=== PATIENT | female | born 1990 | race Caucasian/White ===

== ENCOUNTER 2017-10-28 17:56 | Inpatient (IN) | payer MEDICAID ==
[2017-10-28] MEDS ORDERED: Sodium Chloride 0.9% 2.5 ML Syringe FLUSH PRN ×2 (18:24→18:59)
[2017-10-28] MEDS ORDERED: Sodium Chloride 0.9% 10 ML Syringe FLUSH PRN ×2 (18:24→18:59)
[2017-10-28] MEDS ORDERED: Ondansetron 4 MG/2 ML SDV IVPUSH PRN (18:24)
[2017-10-28] MEDS ORDERED: Promethazine 25 MG/ML SDV IM PRN (18:26)
[2017-10-28] MEDS ORDERED: Dextrose 5%-0.45% NaCl 1,000 ML IV SCH (18:30)
[2017-10-28] MEDS: Lactated Ringers 1,000 ML IV SCH ×3 (18:45→22:47)
--- NOTE | 2017-10-28 18:49 | PCM.LDHP ---
L&D History of Present Illness - General Date of Service: 10/28/17 Admit Problem/Dx: Patient Status Order with Admit Dx/Problem 10/28/17 18:24 Patient Status [ADT] Routine Admission Diagnosis/Problem Admission Diagnosis/Problem -related examination 10/28/17 18:43 27yo EDC 11/09/2017 39 4/7wks comes due to nausea, vomiting, and edema. A +, RI, GBS neg. 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" Respiratory History: Reports: Asthma 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: - Past Surgical History Respiratory Surgical History: Reports: None GI Surgical History: Reports: Cholecystectomy H&P Review of Systems - Review of Systems: Review Of Systems: See Below General: Reports: No Symptoms, Chills, Diaphoresis HEENT: Reports: No Symptoms Pulmonary: Reports: No Symptoms Cardiovascular: Reports: No Symptoms, Edema Gastrointestinal: Reports: No Symptoms, Nausea, Vomiting Genitourinary: Reports: No Symptoms Musculoskeletal: Reports: No Symptoms Skin: Reports: No Symptoms, Diaphoresis Psychiatric: Reports: No Symptoms Neurological: Reports: No Symptoms Hematologic/Lymphatic: Reports: No Symptoms Immunologic: Reports: No Symptoms L&D Exam - Exam Exam: See Below - Vital Signs Weight: 76.204 kg - OB Specific Movement: Active Heart Tones: Present Heart Rate (FHR) Variability: Moderate (6-25 bmp) Presentation: Vertex - Mcdaniel Score Mcdaniel Score Cervix Position: Midposition Mcdaniel Score Consistency: Soft Mcdaniel Score Effacement: 51-70% Mcdaniel Score Dilation: 3-4 cm Mcdaniel Score 's Station: -2 Mcdaniel Score Total: 8 - Exam General: Alert, Oriented, Cooperative, Mild Distress HEENT: Hearing Intact Lungs: Clear to Auscultation, Normal Respiratory Effort Cardiovascular: Regular Rate, Regular Rhythm, Normal S1, Normal S2 GI/Abdominal Exam: Soft, Non-Tender Rectal Exam: Deferred Genitourinary: Normal external exam, Cervical dilitation Back Exam: Normal Inspection Extremities: Normal Inspection, Normal Range of Motion, Non-Tender, No Pedal Edema, Normal Capillary Refill Skin: Warm, Dry, Intact Neurological: Cranial Nerves Intact, Reflexes Equal Bilateral, Strength Equal Bilateral, Normal Speech, Normal Tone Psychiatric: Alert, Normal Affect, Normal Mood - Problem List (1) Supervision of normal IUP (intrauterine ) in multiavida SNOMED Code(s): 574773875, 706717063, 940933492 ICD Code: Z34.80 - ENCOUNTER FOR SUPRVSN OF NORMAL , UNSP TRIMESTER Status: Acute Priority: High Current Visit: Yes Qualifiers: Trimester: third trimester Qualified Code(s): Z34.83 - Encounter for supervision of other normal , third trimester (2) Edema during SNOMED Code(s): 229916739, 254746105 ICD Code: O12.00 - GESTATIONAL EDEMA, UNSPECIFIED TRIMESTER Status: Acute Priority: High Current Visit: Yes Qualifiers: Trimester: third trimester Qualified Code(s): O12.03 - Gestational edema, third trimester (3) Nausea and vomiting of , antepartum SNOMED Code(s): 83590688 ICD Code: O21.9 - VOMITING OF , UNSPECIFIED Status: Acute Priority: High Current Visit: Yes Problem List Initiated/Reviewed/Updated: Yes Orders Last 24hrs: Active Orders 24 hr Category Date Time Status Patient Status [ADT] Routine ADT 10/28/17 18:24 Active Non Stress Test [RC] PER UNIT ROUTINE Care 10/28/17 18:24 Active Up ad Lona [RC] ASDIRECTED Care 10/28/17 18:24 Active Vaginal Exam [RC] Click to Edit Care 10/28/17 18:24 Active Vital Signs [RC] PER UNIT ROUTINE Care 10/28/17 18:24 Active Dextrose 5%-0.45% NaCl [Dextrose 5%-1/2 NS] 1,000 ml Med 10/28/17 18:30 Active IV ASDIRECTED Lactated Ringers [Ringers, Lactated] 1,000 ml Med 10/28/17 18:30 Active IV .BOLUS Ondansetron [Zofran] Med 10/28/17 18:24 Active 4 mg IVPUSH Q4H PRN Promethazine [Phenergan] Med 10/28/17 18:26 Active 25 mg IM Q4H PRN Sodium Chloride 0.9% [Saline Flush] Med 10/28/17 18:24 Active 10 ml FLUSH ASDIRECTED PRN Sodium Chloride 0.9% [Saline Flush] Med 10/28/17 18:24 Active 2.5 ml FLUSH ASDIRECTED PRN Peripheral IV Insertion Adult [OM.PC] Urgent Oth 10/28/17 18:24 Ordered Resuscitation Status Routine Resus Stat 10/28/17 18:24 Ordered Medication Orders Dextrose/Sodium Chloride (Dextrose 5%-1/2 Ns) 1,000 mls @ 125 mls/hr IV ASDIRECTED JALEESA Lactated Ringer's (Ringers, Lactated) 1,000 mls @ 500 mls/hr IV .BOLUS JALEESA Ondansetron HCl (Zofran) 4 mg IVPUSH Q4H PRN PRN Reason: Nausea/Vomiting Promethazine HCl (Phenergan) 25 mg IM Q4H PRN PRN Reason: Nausea/Vomiting Sodium Chloride (Saline Flush) 10 ml FLUSH ASDIRECTED PRN PRN Reason: Keep Vein Open Sodium Chloride (Saline Flush) 2.5 ml FLUSH ASDIRECTED PRN PRN Reason: Keep Vein Open Assessment/Plan Comment:: IOL A: 27yo EDC 11/09/2017 39 4/7wks comes due to nausea, vomiting, and edema. A+, RI, GBS neg. P: admit, Zofran and phenergan for N&V, IOL with pitocin, epidural prn, anticipate , Dr Diop updated and agrees with POC
[2017-10-28] MEDS ORDERED: Butorphanol 1 MG/ML SDV IVPUSH PRN (18:59)
[2017-10-28] MEDS ORDERED: Nalbuphine 10 MG/1 ML Vial IVPUSH PRN (18:59)
[2017-10-28] MEDS ORDERED: Tranexamic Acid 1,000 MG in Sodium Chloride 0.9% 100 ML IV PRN (18:59)
[2017-10-28] MEDS ORDERED: Misoprostol 200 MCG Tab PO PRN (18:59)
[2017-10-28] MEDS ORDERED: Water For Irrigation,Sterile 1,000 ML Container IRR PRN (18:59)
[2017-10-28] MEDS ORDERED: Terbutaline 1 MG/ML SDV SUBCUT PRN (18:59)
[2017-10-28] MEDS ORDERED: Lidocaine 1% 50 ML MDV INJECT PRN (18:59)
[2017-10-28] MEDS ORDERED: Methylergonovine 0.2 MG/1 ML Amp IM PRN (18:59)
[2017-10-28] MEDS ORDERED: Carboprost Tromethamine 250 MCG/1 ML Amp IM PRN (18:59)
[2017-10-28] MEDS ORDERED: Lactated Ringers 1,000 ML IV SCH (19:00)
[2017-10-28] MEDS ORDERED: Oxytocin/0.9 % Sodium Chloride 30 UNIT/500 ML BAG IV SCH ×2 (19:00)
--- NOTE | 2017-10-28 22:12 | PCM.PREANE ---
Preanesthetic Assessment - Anesthesia/Transfusion/Family Hx Anesthesia History: Prior Anesthesia Without Reaction Family History of Anesthesia Reaction: No Transfusion History: No Prior Transfusion(s) - Review of Systems General: No Symptoms Pulmonary: No Symptoms Cardiovascular: No Symptoms Gastrointestinal: No Symptoms Neurological: No Symptoms Other: Reports: None - Physical Assessment Height: 5 ft 2 in Weight: 76.204 kg ASA Class: 2 Mental Status: Alert & Oriented x3 Airway Class: Mallampati = 2 Dentition: Reports: Normal Dentition Thyro-Mental Finger Breadths: 3 Mouth Opening Finger Breadths: 3 ROM/Head Extension: Full Lungs: Clear to Auscultation, Normal Respiratory Effort Cardiovascular: Regular Rate, Regular Rhythm - Lab Values: Laboratory Last Values WBC 14.67 K/uL (4.0-11.0) H 10/28/17 19:15 RBC 4.13 M/uL (4.30-5.90) L 10/28/17 19:15 Hgb 12.0 g/dL (12.0-16.0) 10/28/17 19:15 Hct 35.8 % (36.0-46.0) L 10/28/17 19:15 MCV 86.7 fL (80.0-98.0) 10/28/17 19:15 MCH 29.1 pg (27.0-32.0) 10/28/17 19:15 MCHC 33.5 g/dL (31.0-37.0) 10/28/17 19:15 RDW Std Deviation 45.7 fl (28.0-62.0) 10/28/17 19:15 RDW Coeff of Dorothy 15 % (11.0-15.0) 10/28/17 19:15 Plt Count 199 K/uL (150-400) 10/28/17 19:15 MPV 12.50 fL (7.40-12.00) H 10/28/17 19:15 Nucleated RBC % 0.0 /100WBC 10/28/17 19:15 Nucleated RBCs # 0 K/uL 10/28/17 19:15 Urine Color YELLOW 10/28/17 18:55 Urine Appearance SLT CLOUDY 10/28/17 18:55 Urine pH 7.0 (5.0-8.0) 10/28/17 18:55 Ur Specific [place] 1.020 (1.001-1.035) 10/28/17 18:55 Urine Protein NEGATIVE mg/dL (NEGATIVE) 10/28/17 18:55 Urine Glucose (UA) NEGATIVE mg/dL (NEGATIVE) 10/28/17 18:55 Urine Ketones >=80 mg/dL (NEGATIVE) 08 18:55 Urine Occult Blood SMALL (NEGATIVE) H 18 18:55 Urine Nitrite NEGATIVE (NEGATIVE) 10/28/17 18:55 Urine Bilirubin NEGATIVE (NEGATIVE) 10/28/17 18:55 Urine Urobilinogen 0.2 EU/dL (<2.0) 08 18:55 Ur Leukocyte Esterase MODERATE (NEGATIVE) 10/28/17 18:55 Urine RBC 1-3 (0-2/HPF) 10/28/17 18:55 Urine WBC 7-9 (0-5/HPF) 10/28/17 18:55 Ur Epithelial Cells MODERATE (NONE-FEW) 10/28/17 18:55 Amorphous Sediment LIGHT (NEGATIVE) 10/28/17 18:55 Urine Bacteria 1+ (NEGATIVE) H 10/28/17 18:55 Urinalysis Comment 10/28/17 18:55 Blood Type A POSITIVE 10/28/17 19:15 Antibody Screen NEGATIVE 10/28/17 19:15 - Allergies Allergies/Adverse Reactions: Allergies Allergy/AdvReac Type Severity Reaction Status Date / Time No Known Allergies Allergy Verified 10/28/17 20:08 - Acknowledgements Anesthesia Type Planned: Epidural Pt an Appropriate Candidate for the Planned Anesthesia: Yes Alternatives and Risks of Anesthesia Discussed w Pt/Guardian: Yes Pt/Guardian Understands and Agrees with Anesthesia Plan: Yes PreAnesthesia Questionnaire - Past Health History Medical/Surgical History: Denies Medical/Surgical History HEENT History: Reports: None 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" Respiratory History: Reports: Asthma Gastrointestinal History: Reports: GERD Genitourinary History: Reports: None 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 LMP (Approximate): Musculoskeletal History: Reports: None Neurological History: Reports: None Psychiatric History: Reports: Anxiety, Depression Endocrine/Metabolic History: Reports: Obesity/BMI 30+ Hematologic History: Reports: None Immunologic History: Reports: None Oncologic (Cancer) History: Reports: None Dermatologic History: Reports: None - Infectious Disease History Infectious Disease History: Reports: None - Past Surgical History Respiratory Surgical History: Reports: None GI Surgical History: Reports: Cholecystectomy - SUBSTANCE USE Smoking Status *Q: Current Every Day Smoker (0.5PPD) Tobacco Use Within Last Twelve Months: Cigarettes Second Hand Smoke Exposure: Yes Recreational Drug Use History: No - HOME MEDS Home Medications: Home Meds Ondansetron HCl [Zofran] 1 PRN 10/28/17 [History] - CURRENT (IN HOUSE) MEDS Current Meds: Current Medications Butorphanol Tartrate (Stadol) 1 mg IVPUSH ASDIRECTED PRN PRN Reason: Pain Carboprost Tromethamine (Hemabate Ds) 250 mcg IM ASDIRECTED PRN PRN Reason: Post Hemorrhage Dextrose/Sodium Chloride (Dextrose 5%-1/2 Ns) 1,000 mls @ 125 mls/hr IV ASDIRECTED JALEESA Lactated Ringer's (Ringers, Lactated) 1,000 mls @ 500 mls/hr IV .BOLUS JALEESA Last Admin: 10/28/17 18:45 Dose: 999 mls/hr Tranexamic Acid 1,000 mg/ (Sodium Chloride) 110 mls @ 660 mls/hr IV ONETIME PRN PRN Reason: Bleeding Oxytocin/Sodium Chloride (Oxytocin 30 Unit/500 Ml-Ns) 30 unit in 500 mls @ 2 mls/hr IV TITRATE JALEESA; Protocol Last Admin: 10/28/17 19:27 Dose: 2 munits/min, 2 mls/hr Lactated Ringer's (Ringers, Lactated) 1,000 mls @ 150 mls/hr IV ASDIRECTED JALEESA Oxytocin/Sodium Chloride (Oxytocin 30 Unit/500 Ml-Ns) 30 unit in 500 mls @ 999 mls/hr IV TITRATE JALEESA Lidocaine HCl (Xylocaine 1%) 50 ml INJECT .ONCE PRN PRN Reason: Laceration repair Methylergonovine Maleate (Methergine) 0.2 mg IM ASDIRECTED PRN PRN Reason: Post Hemorrhage Misoprostol (Cytotec) 200 mcg PO .ONCE PRN PRN Reason: Post Hemorrhage Nalbuphine HCl (Nubain) 10 mg IVPUSH ASDIRECTED PRN PRN Reason: Pain (severe 7-10) Last Admin: 10/28/17 20:49 Dose: 10 mg Ondansetron HCl (Zofran) 4 mg IVPUSH Q4H PRN PRN Reason: Nausea/Vomiting Last Admin: 10/28/17 18:50 Dose: 4 mg Promethazine HCl (Phenergan) 25 mg IM Q4H PRN PRN Reason: Nausea/Vomiting Last Admin: 10/28/17 18:52 Dose: 25 mg Sodium Chloride (Saline Flush) 10 ml FLUSH ASDIRECTED PRN PRN Reason: Keep Vein Open Sodium Chloride (Saline Flush) 2.5 ml FLUSH ASDIRECTED PRN PRN Reason: Keep Vein Open Sodium Chloride (Saline Flush) 10 ml FLUSH ASDIRECTED PRN PRN Reason: Keep Vein Open Sodium Chloride (Saline Flush) 2.5 ml FLUSH ASDIRECTED PRN PRN Reason: Keep Vein Open Sterile Water (Sterile Water For Irrigation) 1,000 ml IRR ASDIRECTED PRN PRN Reason: delivery Terbutaline Sulfate (Brethine) 0.25 mg SUBCUT ASDIRECTED PRN PRN Reason: Tacysystole
[2017-10-29] MEDS ORDERED: oxyCODONE 5 MG Tab PO PRN (01:38)
[2017-10-29] MEDS ORDERED: Ibuprofen 400 MG Tab PO PRN (01:38)
[2017-10-29] MEDS ORDERED: Acetaminophen 500 MG Tab PO PRN ×2 (01:38)
[2017-10-29] MEDS ORDERED: Docusate Sodium 100 MG Cap PO PRN (01:38)
[2017-10-29] MEDS ORDERED: Witch Hazel Medicated Pads 40/Jar TOP PRN (01:38)
[2017-10-29] MEDS ORDERED: Benzocaine/Menthol 20%-0.5% Spray 78 GM Cannister TOP PRN (01:38)
[2017-10-29] MEDS ORDERED: Lanolin 100% Cream 7 GM Tube TOP PRN (01:38)
[2017-10-29] MEDS ORDERED: Bisacodyl 10 MG Supp RECTAL PRN (01:38)
--- NOTE | 2017-10-29 01:46 | PCM.DEL ---
L & D Note - General Info Date of Service: 10/29/17 Mother's Due Date: 11/09/17 - Delivery Note Labor: Induced by Oxytocin Delivery Outcome: Livebirth Delivery Method: Spontaneous Vaginal Delivery-Single Infant Delivery Mode: Spontaneous Presentation: Vertex Nuchal Cord: None Anesthesia Type: Epidural Amniotic Fluid Description: Clear Episiotomy Type: None Laceration: None Placenta: Intact, Spontaneous Cord: 3 Vessels Estimated Blood Loss: 100 Resuscitation Needed: No [place]: Stimulated Score 1 min: 9 Score 5 min: 9 Second Stage Interventions: Reports: Pushing, Pulls Own Legs Back Delivery Comments (Free Text/Narrative):: of viable male over intact perineum, head delivered with good pushing, shoulders and body followed easily. spont cry placed on mothers abd with RN at . Delayed cord clamping. Pitocin to IVF. Cord clamped x2 and cut by Grandmother. cord blood collected. Placenta delivered grossly intact. Inspection noted intact perineum. EBL 100cc, APGARS 9/9, Wt pending bonding. mother and baby left in stable condition for recovery. Induction Criteria - Mcdaniel Score Mcdaniel Score Dilation: 3-4 cm Mcdaniel Score Effacement: 60-70% Mcdaniel Score Infant's Station: -2 Mcdaniel Score Consistency: Soft Mcdaniel Score Cervix Position: Midposition Mcdaniel Score Total: 8 Mcdaniel Score Presenting Part: Reports: Cephalic - Induction Gestational Age >/= 39 wks: No Medical Indication: nausea, vomiting and gross edema Estimated Pelvis: Reports: Adequate Reassuring Monitoring Strip: Yes Absence of Tachy Systole: Yes - General Info Date of Service: 10/29/17 Admission Dx/Problem (Free Text): Patient Status Order with Admit Dx/Problem 10/28/17 18:24 Patient Status [ADT] Routine Admission Diagnosis/Problem Admission Diagnosis/Problem -related examination 10/28/17 18:43 27yo EDC 11/09/2017 39 4/7wks comes due to nausea, vomiting, and edema. A +, RI, GBS neg. Functional Status: Reports: Pain Controlled - Review of Systems General: Reports: No Symptoms HEENT: Reports: No Symptoms Pulmonary: Reports: No Symptoms Cardiovascular: Reports: No Symptoms, Edema Gastrointestinal: Reports: No Symptoms, Nausea Genitourinary: Reports: No Symptoms Musculoskeletal: Reports: No Symptoms Skin: Reports: No Symptoms Neurological: Reports: No Symptoms Psychiatric: Reports: No Symptoms - Patient Data Weight - Most Recent: 76.204 kg Lab Results Last 24 Hours: Laboratory Results - last 24 hr 10/28/17 10/28/17 10/28/17 Range/Units 18:55 19:15 19:15 WBC 14.67 H (4.0-11.0) K/uL RBC 4.13 L (4.30-5.90) M/uL Hgb 12.0 (12.0-16.0) g/dL Hct 35.8 L (36.0-46.0) % MCV 86.7 (80.0-98.0) fL MCH 29.1 (27.0-32.0) pg MCHC 33.5 (31.0-37.0) g/dL RDW Std Deviation 45.7 (28.0-62.0) fl RDW Coeff of Dorothy 15 (11.0-15.0) % Plt Count 199 (150-400) K/uL MPV 12.50 H (7.40-12.00) fL Nucleated RBC % 0.0 /100WBC Nucleated RBCs # 0 K/uL Urine Color YELLOW Urine Appearance SLT CLOUDY Urine pH 7.0 (5.0-8.0) Ur Specific [place] 1.020 (1.001-1.035) Urine Protein NEGATIVE (NEGATIVE) mg/dL Urine Glucose (UA) NEGATIVE (NEGATIVE) mg/dL Urine Ketones >=80 (NEGATIVE) mg/dL Urine Occult Blood SMALL H (NEGATIVE) Urine Nitrite NEGATIVE (NEGATIVE) Urine Bilirubin NEGATIVE (NEGATIVE) Urine Urobilinogen 0.2 (<2.0) EU/dL Ur Leukocyte Esterase MODERATE (NEGATIVE) Urine RBC 1-3 (0-2/HPF) Urine WBC 7-9 (0-5/HPF) Ur Epithelial Cells MODERATE (NONE-FEW) Amorphous Sediment LIGHT (NEGATIVE) Urine Bacteria 1+ H (NEGATIVE) Urinalysis Comment Blood Type A POSITIVE Antibody Screen NEGATIVE Med Orders - Current: Current Medications Acetaminophen (Tylenol Extra Strength) 500 mg PO Q4H PRN PRN Reason: Pain Acetaminophen (Tylenol Extra Strength) 1,000 mg PO Q4H PRN PRN Reason: Pain Benzocaine/Menthol (Dermoplast Pain Relief 20%-0.5% Crescent) 78 gm TOP ASDIRECTED PRN PRN Reason: Perineal Comfort Measure Discontinued Medications Butorphanol Tartrate (Stadol) 1 mg IVPUSH ASDIRECTED PRN PRN Reason: Pain Carboprost Tromethamine (Hemabate Ds) 250 mcg IM ASDIRECTED PRN PRN Reason: Post Hemorrhage Dextrose/Sodium Chloride (Dextrose 5%-1/2 Ns) 1,000 mls @ 125 mls/hr IV ASDIRECTED JALEESA Lactated Ringer's (Ringers, Lactated) 1,000 mls @ 500 mls/hr IV .BOLUS JALEESA Last Admin: 10/28/17 22:47 Dose: 999 mls/hr Tranexamic Acid 1,000 mg/ (Sodium Chloride) 110 mls @ 660 mls/hr IV ONETIME PRN PRN Reason: Bleeding Oxytocin/Sodium Chloride (Oxytocin 30 Unit/500 Ml-Ns) 30 unit in 500 mls @ 2 mls/hr IV TITRATE JALEESA; Protocol Last Admin: 10/28/17 19:27 Dose: 2 munits/min, 2 mls/hr Lactated Ringer's (Ringers, Lactated) 1,000 mls @ 150 mls/hr IV ASDIRECTED JALEESA Oxytocin/Sodium Chloride (Oxytocin 30 Unit/500 Ml-Ns) 30 unit in 500 mls @ 999 mls/hr IV TITRATE JALEESA Fentanyl/Bupivacaine HCl (Psawzlrm-Kjemy-Hm 2 Mcg/Ml-0.125%) Confirm Administered Dose 100 mls @ as directed EP .[facility] Stop: 10/28/17 22:29 Lidocaine HCl (Xylocaine 1%) 50 ml INJECT .ONCE PRN PRN Reason: Laceration repair Methylergonovine Maleate (Methergine) 0.2 mg IM ASDIRECTED PRN PRN Reason: Post Hemorrhage Misoprostol (Cytotec) 200 mcg PO .ONCE PRN PRN Reason: Post Hemorrhage Nalbuphine HCl (Nubain) 10 mg IVPUSH ASDIRECTED PRN PRN Reason: Pain (severe 7-10) Last Admin: 10/28/17 20:49 Dose: 10 mg Ondansetron HCl (Zofran) 4 mg IVPUSH Q4H PRN PRN Reason: Nausea/Vomiting Last Admin: 10/28/17 18:50 Dose: 4 mg Promethazine HCl (Phenergan) 25 mg IM Q4H PRN PRN Reason: Nausea/Vomiting Last Admin: 10/28/17 18:52 Dose: 25 mg Sodium Chloride (Saline Flush) 10 ml FLUSH ASDIRECTED PRN PRN Reason: Keep Vein Open Sodium Chloride (Saline Flush) 2.5 ml FLUSH ASDIRECTED PRN PRN Reason: Keep Vein Open Sodium Chloride (Saline Flush) 10 ml FLUSH ASDIRECTED PRN PRN Reason: Keep Vein Open Sodium Chloride (Saline Flush) 2.5 ml FLUSH ASDIRECTED PRN PRN Reason: Keep Vein Open Sterile Water (Sterile Water For Irrigation) 1,000 ml IRR ASDIRECTED PRN PRN Reason: delivery Terbutaline Sulfate (Brethine) 0.25 mg SUBCUT ASDIRECTED PRN PRN Reason: Tacysystole Last Admin: 10/28/17 22:12 Dose: 0.25 mg - Exam General: Alert, Oriented, Cooperative, No Acute Distress Lungs: Normal Respiratory Effort GI/Abdominal Exam: Soft, Non-Tender (Female) Exam: Normal External Exam, Normal Bimanual Exam, Vaginal Bleeding Back Exam: Normal Inspection, Full Range of Motion Extremities: Normal Inspection, Normal Range of Motion, Non-Tender, No Pedal Edema, Normal Capillary Refill, Pedal Edema Skin: Warm, Dry, Intact Wound/Incisions: Healing Well Neurological: No New Focal Deficit, Normal Speech, Normal Tone, Strength Equal Bilateral Psy/Mental Status: Alert, Normal Affect, Normal Mood - Problem List & Annotations (1) Supervision of normal IUP (intrauterine ) in multigravida SNOMED Code(s): 468152324, 621490300, 837601358 Code(s): Z34.80 - ENCOUNTER FOR SUPRVSN OF NORMAL , UNSP TRIMESTER Status: Acute Priority: High Current Visit: Yes Qualifiers: Trimester: third trimester Qualified Code(s): Z34.83 - Encounter for supervision of other normal , third trimester (2) Edema during SNOMED Code(s): 802837334, 464908328 Code(s): O12.00 - GESTATIONAL EDEMA, UNSPECIFIED TRIMESTER Status: Acute Priority: High Current Visit: Yes Qualifiers: Trimester: third trimester Qualified Code(s): O12.03 - Gestational edema, third trimester (3) Nausea and vomiting of , antepartum SNOMED Code(s): 70732268 Code(s): O21.9 - VOMITING OF , UNSPECIFIED Status: Acute Priority: High Current Visit: Yes (4) (normal spontaneous vaginal delivery) SNOMED Code(s): 38352644 Code(s): O80 - ENCOUNTER FOR FULL-TERM UNCOMPLICATED DELIVERY Status: Acute Priority: High Current Visit: Yes - Problem List Review Problem List Initiated/Reviewed/Updated: Yes - My Orders Last 24 Hours: My Active Orders 10/28/17 18:24 Vital Signs [RC] PER UNIT ROUTINE 10/28/17 18:59 Heart Tones [RC] CONTINUOUS Non Stress Test [RC] PER UNIT ROUTINE Oxygen Therapy [RC] ASDIRECTED Vaginal Exam [RC] PRN Vaginal Exam [RC] PRN Vital Signs [RC] PER UNIT ROUTINE Vital Signs [RC] PER UNIT ROUTINE 10/29/17 01:38 May Shower [RC] ASDIRECTED Up ad Lona [RC] ASDIRECTED Vital Signs [RC] PER UNIT ROUTINE Acetaminophen [Tylenol Extra Strength] 1,000 mg PO Q4H PRN Acetaminophen [Tylenol Extra Strength] 500 mg PO Q4H PRN Benzocaine/Menthol [Dermoplast Pain Relief 20%-0.5% Crescent] 78 gm TOP ASDIRECTED PRN Bisacodyl [Dulcolax] 10 mg RECTAL .ONCE PRN Docusate Sodium [Colace] 100 mg PO BID PRN Ibuprofen [Motrin] 400 mg PO Q4H PRN Ibuprofen [Motrin] 800 mg PO Q6H PRN Lanolin [Lansinoh HPA] See Dose Instructions TOP ASDIRECTED PRN Witch Alexus [Tucks] 1 pad TOP ASDIRECTED PRN oxyCODONE 5 mg PO Q2H PRN Assess Lochia [WOMSER] Per Unit Routine Assess Uterine Involution [WOMSER] Per Unit Routine Peripheral IV Discontinue [OM.PC] Routine Resuscitation Status Routine 10/29/17 01:40 Patient Status [ADT] Routine 10/29/17 Breakfast Regular Diet [DIET] - Plan Plan:: IOL A: 27yo EDC 11/09/2017 39 4/7wks comes due to nausea, vomiting, and edema. A+, RI, GBS neg. P: admit, Zofran and phenergan for N&V, IOL with pitocin, epidural prn, anticipate , Dr Diop updated and agrees with POC Delivery A: of viable male, APGARS 9/9, WT: pending bonding. Intact perineum, EBL 100cc, mother and baby bonding well and stable P: Routine pp plan of care
--- NOTE | 2017-10-29 09:26 | PCM48HPAN ---
Post Anesthesia Note - EVALUATION WITHIN 48HRS OF ANESTHETIC Vital Signs in Normal Range: Yes Patient Participated in Evaluation: Yes Respiratory Function Stable: Yes Airway Patent: Yes Cardiovascular Function Stable: Yes Hydration Status Stable: Yes Pain Control Satisfactory: Yes Nausea and Vomiting Control Satisfactory: Yes Mental Status Recovered: Yes Resp Rate: 15
[2017-10-29] MEDS: Ibuprofen 800 MG Tab PO PRN ×2 (10:47→20:50)
[2017-10-30] MEDS: Ibuprofen 800 MG Tab PO PRN (05:53)
--- NOTE | 2017-10-30 08:05 | PCM.PNPP ---
- General Info Date of Service: 10/30/17 Functional Status: Reports: Pain Controlled - Review of Systems General: Reports: No Symptoms HEENT: Reports: No Symptoms Pulmonary: Reports: No Symptoms Cardiovascular: Reports: No Symptoms Gastrointestinal: Reports: No Symptoms Genitourinary: Reports: No Symptoms Musculoskeletal: Reports: No Symptoms Skin: Reports: No Symptoms Neurological: Reports: No Symptoms Psychiatric: Reports: No Symptoms - General Info Date of Service: 10/30/17 - Patient Data Vital Signs - Most Recent: Last Vital Signs Temp 37.1 C 10/29/17 20:55 Pulse 56 L 10/30/17 04:00 Resp 18 10/30/17 07:19 BP 117/69 10/30/17 04:00 Pulse Ox 97 10/30/17 04:00 Weight - Most Recent: 76.204 kg Med Orders - Current: Current Medications Acetaminophen (Tylenol Extra Strength) 500 mg PO Q4H PRN PRN Reason: Pain Acetaminophen (Tylenol Extra Strength) 1,000 mg PO Q4H PRN PRN Reason: Pain Last Admin: 10/29/17 12:55 Dose: 1,000 mg Benzocaine/Menthol (Dermoplast Pain Relief 20%-0.5% [place]) 78 gm TOP ASDIRECTED PRN PRN Reason: Perineal Comfort Measure Bisacodyl (Dulcolax) 10 mg RECTAL .ONCE PRN PRN Reason: Constipation Docusate Sodium (Colace) 100 mg PO BID PRN PRN Reason: Constipation Last Admin: 10/29/17 20:50 Dose: 100 mg Emollient Ointment (Lansinoh Hpa) 0 gm TOP ASDIRECTED PRN PRN Reason: Sore Nipples Ibuprofen (Motrin) 400 mg PO Q4H PRN PRN Reason: Pain Ibuprofen (Motrin) 800 mg PO Q6H PRN PRN Reason: Pain Last Admin: 10/30/17 05:53 Dose: 800 mg Oxycodone HCl (Oxycodone) 5 mg PO Q2H PRN PRN Reason: Pain Witch Alexus (Tucks) 1 pad TOP ASDIRECTED PRN PRN Reason: comfort care Discontinued Medications Butorphanol Tartrate (Stadol) 1 mg IVPUSH ASDIRECTED PRN PRN Reason: Pain Carboprost Tromethamine (Hemabate Ds) 250 mcg IM ASDIRECTED PRN PRN Reason: Post Hemorrhage Dextrose/Sodium Chloride (Dextrose 5%-1/2 Ns) 1,000 mls @ 125 mls/hr IV ASDIRECTED JALEESA Lactated Ringer's (Ringers, Lactated) 1,000 mls @ 500 mls/hr IV .BOLUS JALEESA Last Admin: 10/28/17 22:47 Dose: 999 mls/hr Tranexamic Acid 1,000 mg/ (Sodium Chloride) 110 mls @ 660 mls/hr IV ONETIME PRN PRN Reason: Bleeding Oxytocin/Sodium Chloride (Oxytocin 30 Unit/500 Ml-Ns) 30 unit in 500 mls @ 2 mls/hr IV TITRATE JALEESA; Protocol Last Admin: 10/28/17 19:27 Dose: 2 munits/min, 2 mls/hr Lactated Ringer's (Ringers, Lactated) 1,000 mls @ 150 mls/hr IV ASDIRECTED JALEESA Oxytocin/Sodium Chloride (Oxytocin 30 Unit/500 Ml-Ns) 30 unit in 500 mls @ 999 mls/hr IV TITRATE JALEESA Fentanyl/Bupivacaine HCl (Kibpwrjg-Wuxzg-Lu 2 Mcg/Ml-0.125%) Confirm Administered Dose 100 mls @ as directed EP .STK-MED ONE Stop: 10/28/17 22:29 Last Admin: 10/29/17 08:13 Dose: Not Given Lidocaine HCl (Xylocaine 1%) 50 ml INJECT .ONCE PRN PRN Reason: Laceration repair Methylergonovine Maleate (Methergine) 0.2 mg IM ASDIRECTED PRN PRN Reason: Post Hemorrhage Misoprostol (Cytotec) 200 mcg PO .ONCE PRN PRN Reason: Post Hemorrhage Nalbuphine HCl (Nubain) 10 mg IVPUSH ASDIRECTED PRN PRN Reason: Pain (severe 7-10) Last Admin: 10/28/17 20:49 Dose: 10 mg Ondansetron HCl (Zofran) 4 mg IVPUSH Q4H PRN PRN Reason: Nausea/Vomiting Last Admin: 10/28/17 18:50 Dose: 4 mg Promethazine HCl (Phenergan) 25 mg IM Q4H PRN PRN Reason: Nausea/Vomiting Last Admin: 10/28/17 18:52 Dose: 25 mg Sodium Chloride (Saline Flush) 10 ml FLUSH ASDIRECTED PRN PRN Reason: Keep Vein Open Sodium Chloride (Saline Flush) 2.5 ml FLUSH ASDIRECTED PRN PRN Reason: Keep Vein Open Sodium Chloride (Saline Flush) 10 ml FLUSH ASDIRECTED PRN PRN Reason: Keep Vein Open Sodium Chloride (Saline Flush) 2.5 ml FLUSH ASDIRECTED PRN PRN Reason: Keep Vein Open Sterile Water (Sterile Water For Irrigation) 1,000 ml IRR ASDIRECTED PRN PRN Reason: delivery Terbutaline Sulfate (Brethine) 0.25 mg SUBCUT ASDIRECTED PRN PRN Reason: Tacysystole Last Admin: 10/28/17 22:12 Dose: 0.25 mg - Infant Interaction Disposition, : in Room with Family Infant Interaction: Holding Infant Infant Feeding: Attempted ; Nursed Fair/Poor Support Person: Mother - Recovery Exam Fundal Tone: Firm Fundal Level: 2 Fingerbreadths Below Umbilicus Fundal Placement: Midline Lochia Amount: Scant Lochia Color: Rubra/Red Perineum Description: Intact, Minimal Bruising/Swelling Episiotomy/Laceration: None Bladder Status: Nonpalpable, Voiding - Exam General: Alert, Oriented HEENT: Pupils Equal Neck: Supple Lungs: Clear to Auscultation, Normal Respiratory Effort Cardiovascular: Regular Rate, Regular Rhythm GI/Abdominal Exam: Normal Bowel Sounds, Soft, Non-Tender, No Organomegaly, No Distention, No Abnormal Bruit, No Mass, Pelvis Stable Extremities: Normal Inspection, Normal Range of Motion, Non-Tender, No Pedal Edema, Normal Capillary Refill Skin: Warm, Dry, Intact Wound/Incisions: Healing Well Neurological: No New Focal Deficit Psy/Mental Status: Alert, Normal Affect, Normal Mood - Problem List Review Problem List Initiated/Reviewed/Updated: Yes - Assessment Assessment:: Status post normal spontaneous vaginal delivery regular for follow-up care doing well we will sent home today - Plan Plan:: IOL A: 27yo EDC 11/09/2017 39 4/7wks comes due to nausea, vomiting, and edema. A+, RI, GBS neg. P: admit, Zofran and phenergan for N&V, IOL with pitocin, epidural prn, anticipate , Dr Diop updated and agrees with POC Delivery A: of viable male, APGARS 9/9, WT: pending bonding. Intact perineum, EBL 100cc, mother and baby bonding well and stable P: Routine pp plan of care
[2017-10-30 10:52] VITALS: BP 105/65
== END 2017-10-30 11:18 | disposition home or self-care (01) | DRG 775 ==
LOC: MW.OBCHECK 17:56 → MW.OB 20:14 → OBSVTOIN 10-29 01:19 → MW.OB 10-29 01:20
PROVIDERS: ADMIT Obstetrics & Gynecology; ATTEND Obstetrics & Gynecology
PROC: 10E0XZZ Delivery of Products of Conception, External Approach (ICD-10-PCS; principal; 2017-10-29)
PROC: 10907ZC Drainage of Amniotic Fluid, Therapeutic from Products of Conception, Via Natural or Artificial Opening (ICD-10-PCS; 2017-10-29)
PROC: 3E0S3GC Introduction of Other Therapeutic Substance into Epidural Space, Percutaneous Approach (ICD-10-PCS; 2017-10-29)
DX: O12.04 Gestational edema, complicating childbirth (principal); Z37.0 Single live birth; Z3A.39 39 weeks gestation of pregnancy; O21.9 Vomiting of pregnancy, unspecified
CPT/HCPCS: 36415; 59025; 59409; 81001; 85027; 86850; 86900; 86901; A9270-GY; J2300; J2405; J2550; J2590; J3105; J7120

== ENCOUNTER 2017-12-19 10:08 | Emergency (ER) | payer MEDICAID ==
[2017-12-19] MEDS ORDERED: Sodium Chloride 0.9% 1,000 ML IV ONE ×3 (10:32→14:37)
[2017-12-19] MEDS ORDERED: Sodium Chloride 0.9% 2.5 ML Syringe FLUSH PRN (10:32)
[2017-12-19] MEDS ORDERED: Morphine 2 MG/ML Syringe IVPUSH ONE (10:32)
[2017-12-19] MEDS ORDERED: Ondansetron 4 MG/2 ML SDV IVPUSH ONE ×2 (10:32→11:18)
[2017-12-19] MEDS ORDERED: Sodium Chloride 0.9% 10 ML Syringe FLUSH PRN (10:32)
--- NOTE | 2017-12-19 10:36 | EDM.PDOC ---
ED HPI GENERAL MEDICAL PROBLEM - General Chief Complaint: Abdominal Pain Stated Complaint: ABDOMINAL PAIN Time Seen by Provider: 12/19/17 10:10 Source of Information: Reports: Patient History Limitations: Reports: No Limitations - History of Present Illness INITIAL COMMENTS - FREE TEXT/NARRATIVE: History of present illness: []Some bad chicken approximately 6 PM last night and started having vomiting and abdominal pain around 6 AM. Review of systems: As per history of present illness and below otherwise all systems reviewed and negative. Past medical history: As per history of present illness and as reviewed below otherwise noncontributory. Surgical history: As per history of present illness and as reviewed below otherwise noncontributory. Social history: No reported history of drug or alcohol abuse. Family history: As per history of present illness and as reviewed below otherwise noncontributory. Physical exam: General: Well developed, well nourished in moderate painful distress HEENT: Atraumatic, normocephalic, pupils reactive, negative for conjunctival pallor or scleral icterus, mucous membranes moist, throat clear, neck supple, nontender, trachea midline. Lungs: Clear to auscultation, breath sounds equal bilaterally, chest nontender. Heart: S1S2, regular, negative for clicks, rubs, or JVD. Abdomen: Soft, nondistended, diffuse tenderness with voluntary guarding no rebound. Negative for masses or hepatosplenomegaly. Negative for costovertebral tenderness. Pelvis: Stable nontender. Genitourinary: Deferred. Rectal: Deferred. Extremities: Atraumatic, negative for cords or calf pain. Neurovascular unremarkable. Neuro: Awake, alert, oriented. Cranial nerves II through XII unremarkable. Cerebellum unremarkable. Motor and sensory unremarkable throughout. Exam nonfocal. Skin:warm and dry Diagnostics: CBC, chemistry, lipase, urine, drug screen, , CT abdomen pelvis negative except for nonspecific periportal edema Therapeutics: IV fluid 3 L morphine, Zofran ED Course: Markedly improved, Dr. Shearer was consulted giving the periportal edema on CT he recommended keeping the patient on a PPI and follow-up in one week. Impression: use of multiple Illicit drugs , vomiting, dehydration Prescriptions: PPI, Zofran Plan: Follow-up with primary care as needed. Definitive disposition and diagnosis as appropriate pending reevaluation and review of above. Abdominal Pain Score (Numeric/FACES): 9 - Related Data Allergies Allergy/AdvReac Type Severity Reaction Status Date / Time No Known Allergies Allergy Verified 12/19/17 10:53 Home Meds: Home Meds . 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" Respiratory History: Reports: Asthma Gastrointestinal History: Reports: GERD Genitourinary History: Reports: None CASH CONTROLLER History: Reports: Musculoskeletal History: Reports: None Neurological History: Reports: None Psychiatric History: Reports: Anxiety, Depression Endocrine/Metabolic History: Reports: Obesity/BMI 30+ Hematologic History: Reports: None Immunologic History: Reports: None Oncologic (Cancer) History: Reports: None Dermatologic History: Reports: None - Infectious Disease History Infectious Disease History: Reports: None - Past Surgical History Respiratory Surgical History: Reports: None GI Surgical History: Reports: Cholecystectomy Social & Family History - Family History Family Medical History: Noncontributory - Caffeine Use Caffeine Use: Reports: Soda ED ROS GENERAL - Review of Systems Review Of Systems: ROS reveals no pertinent complaints other than HPI. ED EXAM, GI/ABD - Physical Exam Exam: See Below (History of present illness:) Course - Vital Signs Last Recorded V/S: Last Vital Signs Temp 97.9 F 12/19/17 14:52 Pulse 45 L 12/19/17 14:52 Resp 16 12/19/17 14:52 BP 100/47 L 12/19/17 10:54 Pulse Ox 99 12/19/17 14:52 - Orders/Labs/Meds Orders: Active Orders 24 hr Category Date Time Status Sodium Chloride 0.9% [Normal Saline] 1,000 ml Med 12/19/17 14:37 Active IV .Bolus Sodium Chloride 0.9% [Saline Flush] Med 12/19/17 10:32 Active 10 ml FLUSH ASDIRECTED PRN Sodium Chloride 0.9% [Saline Flush] Med 12/19/17 10:32 Active 2.5 ml FLUSH ASDIRECTED PRN Saline Lock Insert [OM.PC] Stat Oth 12/19/17 10:31 Ordered Medication Orders Sodium Chloride (Normal Saline) 1,000 mls @ 999 mls/hr IV .Bolus ONE Stop: 12/19/17 15:37 Last Admin: 12/19/17 14:52 Dose: 999 mls/hr Sodium Chloride (Saline Flush) 10 ml FLUSH ASDIRECTED PRN PRN Reason: Keep Vein Open Sodium Chloride (Saline Flush) 2.5 ml FLUSH ASDIRECTED PRN PRN Reason: Keep Vein Open Labs: Laboratory Tests 12/19/17 12/19/17 12/19/17 Range/Units 11:47 11:47 11:47 WBC 15.86 H (4.0-11.0) K/uL RBC 4.39 (4.30-5.90) M/uL Hgb 12.2 (12.0-16.0) g/dL Hct 38.5 (36.0-46.0) % MCV 87.7 (80.0-98.0) fL MCH 27.8 (27.0-32.0) pg MCHC 31.7 (31.0-37.0) g/dL RDW Std Deviation 44.9 (28.0-62.0) fl RDW Coeff of Dorothy 14 (11.0-15.0) % Plt Count 174 (150-400) K/uL MPV 13.60 H (7.40-12.00) fL Neut % (Auto) 91.1 H (48.0-80.0) % Lymph % (Auto) 7.8 L (16.0-40.0) % [place] % (Auto) 0.9 (0.0-15.0) % Eos % (Auto) 0.1 (0.0-7.0) % Baso % (Auto) 0.1 (0.0-1.5) % Neut # (Auto) 14.4 H (1.4-5.7) K/uL Lymph # (Auto) 1.2 (0.6-2.4) K/uL [place] # (Auto) 0.2 (0.0-0.8) K/uL Eos # (Auto) 0.0 (0.0-0.7) K/uL Baso # (Auto) 0.0 (0.0-0.1) K/uL Lactate (0.20-2.00) mmol/L Sodium 142 (136-145) mmol/L Potassium 4.2 (3.5-5.1) mmol/L Chloride 107 (98-107) mmol/L Carbon Dioxide 23.9 (21.0-32.0) mmol/L BUN 11 (7.0-18.0) mg/dL Creatinine 0.7 (0.6-1.0) mg/dL Est Cr Clr Drug Dosing 97.17 mL/min Estimated GFR (MDRD) > 60.0 ml/min Glucose 150 H (74-106) mg/dL Calcium 8.7 (8.5-10.1) mg/dL Total Bilirubin 0.4 (0.2-1.0) mg/dL AST 12 L (15-37) IU/L ALT 20 (14-63) IU/L Alkaline Phosphatase 74 (46-116) U/L Total Protein 6.5 (6.4-8.2) g/dL Albumin 3.6 (3.4-5.0) g/dL Globulin 2.9 (2.0-3.5) g/dL Albumin/Globulin Ratio 1.2 L (1.3-2.8) Lipase 84 (73-393) U/L HCG, Qual NEGATIVE (NEG) Urine Color Urine Appearance Urine pH (5.0-8.0) Ur Specific [place] (1.001-1.035) Urine Protein (NEGATIVE) mg/dL Urine Glucose (UA) (NEGATIVE) mg/dL Urine Ketones (NEGATIVE) mg/dL Urine Occult Blood (NEGATIVE) Urine Nitrite (NEGATIVE) Urine Bilirubin (NEGATIVE) Urine Urobilinogen (<2.0) EU/dL Ur Leukocyte Esterase (NEGATIVE) Urine RBC (0-2/HPF) Urine WBC (0-5/HPF) Ur Epithelial Cells (NONE-FEW) Urine Bacteria (NEGATIVE) Urine Mucus (NONE-MOD) Urine Opiates Screen (NEGATIVE) Ur Oxycodone Screen (NEGATIVE) Urine Methadone Screen (NEGATIVE) Ur Barbiturates Screen (NEGATIVE) Ur Phencyclidine Scrn (NEGATIVE) Ur Amphetamine Screen (NEGATIVE) U Methamphetamines Scrn (NEGATIVE) U Benzodiazepines Scrn (NEGATIVE) U Cocaine Metab Screen (NEGATIVE) U Marijuana (THC) Screen (NEGATIVE) 12/19/17 12/19/17 12/19/17 Range/Units 12:45 12:45 14:59 WBC (4.0-11.0) K/uL RBC (4.30-5.90) M/uL Hgb (12.0-16.0) g/dL Hct (36.0-46.0) % MCV (80.0-98.0) fL MCH (27.0-32.0) pg MCHC (31.0-37.0) g/dL RDW Std Deviation (28.0-62.0) fl RDW Coeff of [place] (11.0-15.0) % Plt Count (150-400) K/uL MPV (7.40-12.00) fL Neut % (Auto) (48.0-80.0) % Lymph % (Auto) (16.0-40.0) % [place] % (Auto) (0.0-15.0) % Eos % (Auto) (0.0-7.0) % Baso % (Auto) (0.0-1.5) % Neut # (Auto) (1.4-5.7) K/uL Lymph # (Auto) (0.6-2.4) K/uL [place] # (Auto) (0.0-0.8) K/uL Eos # (Auto) (0.0-0.7) K/uL Baso # (Auto) (0.0-0.1) K/uL Lactate 2.0 (0.20-2.00) mmol/L Sodium (136-145) mmol/L Potassium (3.5-5.1) mmol/L Chloride (98-107) mmol/L Carbon Dioxide (21.0-32.0) mmol/L BUN (7.0-18.0) mg/dL Creatinine (0.6-1.0) mg/dL Est Cr Clr Drug Dosing mL/min Estimated GFR (MDRD) ml/min Glucose (74-106) mg/dL Calcium (8.5-10.1) mg/dL Total Bilirubin (0.2-1.0) mg/dL AST (15-37) IU/L ALT (14-63) IU/L Alkaline Phosphatase (46-116) U/L Total Protein (6.4-8.2) g/dL Albumin (3.4-5.0) g/dL Globulin (2.0-3.5) g/dL Albumin/Globulin Ratio (1.3-2.8) Lipase (73-393) U/L HCG, Qual (NEG) Urine Color YELLOW Urine Appearance CLEAR Urine pH 7.0 (5.0-8.0) Ur Specific [place] 1.025 (1.001-1.035) Urine Protein NEGATIVE (NEGATIVE) mg/dL Urine Glucose (UA) NEGATIVE (NEGATIVE) mg/dL Urine Ketones 40 H (NEGATIVE) mg/dL Urine Occult Blood LARGE H (NEGATIVE) Urine Nitrite NEGATIVE (NEGATIVE) Urine Bilirubin NEGATIVE (NEGATIVE) Urine Urobilinogen 0.2 (<2.0) EU/dL Ur Leukocyte Esterase TRACE (NEGATIVE) Urine RBC 2-4 (0-2/HPF) Urine WBC 7-12 (0-5/HPF) Ur Epithelial Cells FEW (NONE-FEW) Urine Bacteria FEW (NEGATIVE) Urine Mucus LIGHT (NONE-MOD) Urine Opiates Screen POSITIVE (NEGATIVE) Ur Oxycodone Screen NEGATIVE (NEGATIVE) Urine Methadone Screen NEGATIVE (NEGATIVE) Ur Barbiturates Screen NEGATIVE (NEGATIVE) Ur Phencyclidine Scrn NEGATIVE (NEGATIVE) Ur Amphetamine Screen POSITIVE (NEGATIVE) U Methamphetamines Scrn POSITIVE (NEGATIVE) U Benzodiazepines Scrn NEGATIVE (NEGATIVE) U Cocaine Metab Screen NEGATIVE (NEGATIVE) U Marijuana (THC) Screen POSITIVE (NEGATIVE) Meds: Medications Generic Name Dose Route Start Last Admin Trade Name Freq PRN Reason Stop Dose Admin Sodium Chloride 1,000 mls @ 999 mls/hr 12/19/17 14:37 12/19/17 14:52 Normal Saline IV 12/19/17 15:37 999 mls/hr .Bolus ONE Administration Sodium Chloride 10 ml 12/19/17 10:32 Saline Flush FLUSH ASDIRECTED PRN Keep Vein Open Sodium Chloride 2.5 ml 12/19/17 10:32 Saline Flush FLUSH ASDIRECTED PRN Keep Vein Open Discontinued Medications Generic Name Dose Route Start Last Admin Trade Name Freq PRN Reason Stop Dose Admin Sodium Chloride 1,000 mls @ 999 mls/hr 12/19/17 10:32 12/19/17 11:10 Normal Saline IV 12/19/17 11:32 750 mls/hr .Bolus ONE Infusion Sodium Chloride 1,000 mls @ 999 mls/hr 12/19/17 12:24 12/19/17 12:46 Normal Saline IV 12/19/17 13:24 800 mls/hr .Bolus ONE Administration Iopamidol 72 ml 12/19/17 13:46 12/19/17 13:47 Isovue Multipack-370 (76%) IVPUSH 12/19/17 13:47 72 ml ONETIME STA Administration Morphine Sulfate 4 mg 12/19/17 10:32 12/19/17 11:14 Morphine IVPUSH 12/19/17 10:33 4 mg ONETIME ONE Administration Ondansetron HCl 4 mg 12/19/17 10:32 12/19/17 11:14 Zofran IVPUSH 12/19/17 10:33 4 mg ONETIME ONE Administration Ondansetron HCl 4 mg 12/19/17 11:18 12/19/17 11:23 Zofran IVPUSH 12/19/17 11:19 4 mg ONETIME ONE Administration Departure - Departure Time of Disposition: 15:25 Disposition: Home, Self-Care 01 Condition: Good Clinical Impression: Methamphetamine abuse, Abdominal pain with vomiting - Discharge Information *PRESCRIPTION DRUG MONITORING PROGRAM REVIEWED*: No *COPY OF PRESCRIPTION DRUG MONITORING REPORT IN PATIENT YUNIEL: No Referrals: PCP,None [Primary Care Provider] - Forms: ED Department Discharge Additional Instructions: The following information is given to patients seen in the emergency department who are being discharged to home. This information is to outline your options for follow-up care. We provide all patients seen in our emergency department with a follow-up referral. The need for follow-up, as well as the timing and circumstances, are variable depending upon the specifics of your emergency department visit. If you don't have a primary care physician on staff, we will provide you with a referral. We always advise you to contact your personal physician following an emergency department visit to inform them of the circumstance of the visit and for follow-up with them and/or the need for any referrals to a consulting specialist. The emergency department will also refer you to a specialist when appropriate. This referral assures that you have the opportunity for follow-up care with a specialist. All of these measure are taken in an effort to provide you with optimal care, which includes your follow-up. Under all circumstances we always encourage you to contact your private physician who remains a resource for coordinating your care. When calling for follow-up care, please make the office aware that this follow-up is from your recent emergency room visit. If for any reason you are refused follow-up, please contact the [facility] Emergency Department at and asked to speak to the emergency department charge nurse. Stop using illegal drugs. Take Prilosec twice a day. Follow-up with your primary care as needed [facility] [address] [place] [id number] - My Orders Last 24 Hours: My Active Orders 12/19/17 10:31 Saline Lock Insert [OM.PC] Stat 12/19/17 10:32 Sodium Chloride 0.9% [Saline Flush] 10 ml FLUSH ASDIRECTED PRN Sodium Chloride 0.9% [Saline Flush] 2.5 ml FLUSH ASDIRECTED PRN 12/19/17 14:37 Sodium Chloride 0.9% [Normal Saline] 1,000 ml IV .Bolus - Assessment/Plan Last 24 Hours: My Active Orders 12/19/17 10:31 Saline Lock Insert [OM.PC] Stat 12/19/17 10:32 Sodium Chloride 0.9% [Saline Flush] 10 ml FLUSH ASDIRECTED PRN Sodium Chloride 0.9% [Saline Flush] 2.5 ml FLUSH ASDIRECTED PRN 12/19/17 14:37 Sodium Chloride 0.9% [Normal Saline] 1,000 ml IV .Bolus
[2017-12-19 12:28] LABS: CHLORIDE,CL 107 mmol/L (98-107); SODIUM,NA 142 mmol/L (136-145)
[2017-12-19] MEDS ORDERED: Iopamidol 755 MG/ML 500 ML Multipack Bottle IVPUSH STA (13:46)
--- NOTE | 2017-12-19 14:15 | CT ---
CT of the abdomen and pelvis with contrast. HISTORY: Pain TECHNIQUE: Axial CT images were obtained of the abdomen and pelvis following administration of 72 mL of Isovue-370 in the left hand without complication. Coronal and sagittal reconstructions obtained. FINDINGS: The lung bases are clear, no pleural effusion. There is moderate periportal edema noted. A trace fluid is noted within the gallbladder fossa status post cholecystectomy. The adrenal glands, spleen, and pancreas appear normal. No bulky retroperitonea l lymphadenopathy or abdominal ascites. The kidneys enhance and function symmetrically without evidence of obstructive uropathy. Punctate non obstructing left nephrolithiasis. The large and small bowel are normal in caliber without evidence of obstruction. No focal pericolonic inflammation or stranding. The appendix is normal. Uterus and ovaries are grossly unremarkable. No f ree pelvic fluid or pelvic lymphadenopathy. The urinary bladder is minimally filled. No suspicious osseous abnormalities. IMPRESSION: 1. Moderate nonspecific periportal edema of uncertain etiology.
[2017-12-19 16:08] VITALS: BP 117/48
--- NOTE | 2017-12-19 16:10 | PCM.SN ---
- Free Text/Narrative Note: pt seen, chart reviewed; abd pain almost completely resolved with 4 mg iv morphine; ct finding suggested questionable liver disease, mostly nonspecific as suggested by radiologist; black tarrry stool, may need to be on PPI X 3 - 4 days; fu with primary care providers, and future egd if clinically indicated, thanks for the consult and care of this pleasent pt
--- NOTE | 2017-12-20 08:15 | CONS ---
DATE OF CONSULTATION: 12/19/2017 DATE OF : 1990 PRIMARY CARE PHYSICIAN: None PCP CONCERNING QUESTION: Portal edema from CAT scan. HISTORY OF PRESENT ILLNESS: The patient is a 27-year-old lady, appropriately built, complained of a 24-hour history of a gradual onset of abdominal pain. The pain worsened, sought help in the emergency room and after 4 mg of IV morphine, the patient calmed down. CAT scan reading was moderate, nonspecific periportal edema of uncertain etiology, and appendix is normal. Surgery was consulted for further management. Upon interview with the patient, the patient is half awake, another half time the patient is with eye closed, the patient did curl up comfortably and requested the patient to lie on her back for examination, patient admittedly do so. The patient remarked that she never have this kind of pain before and currently her pain is almost all gone, but still have pain. Denied fever or chill. Patient did remark that her stool was darkened or black this morning. Denied hematemesis, hemoptysis, or hematuria. MEDICATIONS: Please refer to nursing for details. PAST MEDICAL HISTORY: Denied diabetic, [place], CVA, hypertension. PAST SURGICAL HISTORY: Laparoscopic cholecystectomy and normal vaginal delivery of baby x2. FAMILY HISTORY: Noncontributory. PHYSICAL EXAMINATION: GENERAL: As I enter the room, the patient looks extremely comfortable, lies spread herself on the bed, and the patient was able to open her eye half open and follow up through with the exam and answer question. The patient quickly realigned herself to lie on the bed when doctor requests. HEENT: Normocephalic and atraumatic. Sclerae anicteric. LUNGS: Clear to auscultation. HEART: Regular rate and rhythm. ABDOMEN: Soft, nondistended. No pulsating. Tender midline. Abdominal structure has minimal tenderness on the epigastrium and left lower quadrant is nontender in the right lower quadrant. No rebound tenderness. No well-healed laparoscopic surgical scar and no hernia appreciated. LABORATORY DATA: Laboratory values upon consultation; white count was 15.8, and H and H are 12 and 38, and platelet is 174. Lactate is 2.0, BUN is 11, creatinine 0.7, total bilirubin is 0.4. Beta-hCG is negative. UA shows a large amount of occult blood. Toxicology, the patient is positive for opioid, amphetamine, and marijuana. IMPRESSION: Abdominal pain with nonspecific periportal edema, not quite sure what is the clinical evidence. I had a long discussion with Radiology and most of the time people with portal edema have liver disease or cirrhosis. The patient's gallbladder surgery has been more than many, many months ago. The only significance upon interview is that the patient remarked to have a black tarry stool. I will put the patient on a little bit pain medication and PPI, and follow up with primary care physician. Eventually, the patient may need to have EGD to check her stomach and also with the patient on 4 different positive screen on toxicology, sometimes it may be difficult to make a clean diagnosis, the patient is aware of that. SAURABH SMITH /[id number]
== END 2017-12-19 16:00 | disposition home or self-care (01) ==
LOC: MW.ED 10:08
DX: E86.0 Dehydration (principal); R11.10 Vomiting, unspecified; R10.9 Unspecified abdominal pain; F15.129 Other stimulant abuse with intoxication, unspecified; F41.9 Anxiety disorder, unspecified; F32.9 Major depressive disorder, single episode, unspecified
CPT/HCPCS: 36415; 74177; 80053; 80305; 81001; 83605; 83690; 84703; 85025; 96361; 96374; 96375; 99284; J2270; J2405; J7040; Q9967; 99283

== ENCOUNTER 2019-11-08 11:49 | Emergency (ER) | payer MEDICAID, OTHER ==
--- NOTE | 2019-11-08 12:01 | EDM.PDOC ---
ED HPI GENERAL MEDICAL PROBLEM - General Chief Complaint: Genitourinary Problem Stated Complaint: PAIN AROUND KIDNEYS Time Seen by Provider: 11/08/19 11:54 Source of Information: Reports: Patient History Limitations: Reports: No Limitations - History of Present Illness INITIAL COMMENTS - FREE TEXT/NARRATIVE: HISTORY AND PHYSICAL: History of present illness: Patient is a 29-year-old female who presents to the emergency room with complaints of right flank pain. She is concerned that she has a "kidney infection". Complains of suprapubic pain without any vaginal discharge/bleeding or dysuria. She has no concerns of STDs. Patient denies any fever, chills, headache, change in vision, syncope or near syncope. Denies any chest pain, back pain, shortness of breath or cough. Denies any nausea, vomiting, diarrhea, constipation. Has not noted any blood in urine or stool. Patient has been eating and drinking appropriately. She took Tylenol this morning without any relief. Review of systems: As per history of present illness and below otherwise all systems reviewed and negative. Past medical history: As per history of present illness and as reviewed below otherwise n oncontributory. Surgical history: As per history of present illness and as reviewed below otherwise noncontributory. Social history: See social history for further information Family history: As per history of present illness and as reviewed below otherwise noncontributory. Physical exam: General: Well developed and well nourished 29-year-old female. Alert and orientated x 3. Nontoxic in appearance and in no acute distress. Vital signs are stable and have been reviewed by me. Nursing notes were reviewed. HEENT: Atraumatic, normocephalic, pupils equal and reactive bilaterally, negative for conjunctival pallor or scleral icterus, mucous membranes moist, neck supple, nontender, trachea midline. No drooling or trismus noted. No meningeal signs. No hot potato voice noted. Lungs: Clear to auscultation, breath sounds equal bilaterally, chest nontender. Normal work of breathing, no accessory muscles used. Heart: S1S2, regular rate and rhythm without overt murmur Abdomen: Soft, nondistended, nontender. Negative for masses or hepatosplenomegaly. Right-sided costovertebral tenderness. Pelvis: Stable nontender. Skin: Intact, warm, dry. No lesions or rashes noted. Hematologic: No petechiae or purpra. Mucosa appropriate color and normal nail bed color and refill. Extremities: Atraumatic, moves all extremities per self without difficulty or deficits, negative for cords or calf pain. Neurovascular unremarkable. Neuro: Awake, alert, oriented. Cranial nerves II through XII unremarkable. Cerebellum unremarkable. Motor and sensory unremarkable throughout. Exam nonfocal. Psychiatric: Mood and affect are appropriate. Normal thought process. Answering questions appropriately. Notes: Patient does have a leukocytosis with urinary tract infection. Patient states she is able to void without any difficulty. She has been drinking water and swallowing the oral antibiotic without any nausea or vomiting. Due to her diagnostics I did offer the patient admission which she declines. She states she would like to be discharged to home with pain medication and antibiotics. We discussed in great length signs and symptoms that would prompt them to return to the Emergency Department. She is aware that if she does not tolerate outpatient therapy she may need to be admitted for IV antibiotics and observation. Medication, follow up and supportive care measures were reviewed and discussed. Voices understanding and is agreeable to plan of care. Denies any further questions or concerns at this time. Diagnostics: CBC, CMP, UA, urine Therapeutics: IV fluid, Toradol, Cipro, Pyridium Prescription: Cipro, Pyridium Impression: Pyelonephritis, right Plan: 1. Today your physical exam shows you have a bladder infection that is now traveled to the right kidney. You were offered admission which you declined. If at any time your pain should worsen, you are unable to keep your antibiotics down or you feel like you are not improving please return and we will reassess if you need to be admitted. 2. Increase your oral fluids. You can alternate Tylenol and/or ibuprofen. 3. We always encourage you to follow up with your primary care provider or recommended specialist in the next few days for re-evaluation and further care/management. If your symptoms should worsen, new symptoms develop or any of the signs and symptoms we discussed should arise please return to the emergency room or call 911 (if needed). Definitive disposition and diagnosis as appropriate pending reevaluation and review of above. right kidney Pain Score (Numeric/FACES): 10 - Related Data Allergies Allergy/AdvReac Type Severity Reaction Status Date / Time No Known Allergies Allergy Verified 11/08/19 12:08 Home Meds: Home Meds Acetaminophen/HYDROcodone [[place] 325-5 MG] 1 dose PO Q4H #20 tablet 11/08/19 [Rx] Ciprofloxacin [Ciprofloxacin HCl] 500 mg PO BID 7 Days #13 tab 11/08/19 [Rx] Non-Formulary Medication [NF Drug] 0 each PO DAILY 11/08/19 [History] Phenazopyridine HCl [Pyridium] 100 mg PO TID 2 Days #6 tablet 11/08/19 [Rx] Past Medical History - Past Health History Medical/Surgical History: Denies Medical/Surgical History HEENT History: Reports: None Cardiovascular History: Reports: Other (See Below) 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" Respiratory History: Reports: Asthma Gastrointestinal History: Reports: GERD Genitourinary History: Reports: None [employer]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[employer]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 History: Reports: Musculoskeletal History: Reports: None Neurological History: Reports: None Psychiatric History: Reports: Anxiety, Depression, PTSD, Suicidal Ideation Endocrine/Metabolic History: Reports: None Hematologic History: Reports: None Immunologic History: Reports: None Oncologic (Cancer) History: Reports: None Dermatologic History: Reports: None - Infectious Disease History Infectious Disease History: Reports: None - Past Surgical History GI Surgical History: Reports: Cholecystectomy Social & Family History - Family History Family Medical History: Noncontributory - Caffeine Use Caffeine Use: Reports: Coffee, Soda - Living Situation & Occupation Living situation: Reports: Single Occupation: Unemployed ED ROS GENERAL - Review of Systems Review Of Systems: Comprehensive ROS is negative, except as noted in HPI. ED EXAM, RENAL/ - Physical Exam Exam: See Below (See dictation) Course - Vital Signs Last Recorded V/S: Last Vital Signs Temp 95.9 F L 11/08/19 12:06 Pulse 109 H 11/08/19 12:06 Resp 16 11/08/19 12:06 BP 112/69 11/08/19 12:06 Pulse Ox 99 11/08/19 12:06 - Orders/Labs/Meds Orders: Active Orders 24 hr Category Date Time Status CULTURE URINE [RM] Stat Lab 11/08/19 12:00 Received Labs: Laboratory Tests 11/08/19 11/08/19 11/08/19 Range/Units 12:00 12:00 12:20 WBC 15.77 H (4.0-11.0) K/uL RBC 4.27 L (4.30-5.90) M/uL Hgb 12.2 (12.0-16.0) g/dL Hct 37.3 (36.0-46.0) % MCV 87.4 (80.0-98.0) fL MCH 28.6 (27.0-32.0) pg MCHC 32.7 (31.0-37.0) g/dL RDW Std Deviation 45.1 (28.0-62.0) fl RDW Coeff of Dorothy 14 (11.0-15.0) % Plt Count 302 (150-400) K/uL MPV 11.30 (7.40-12.00) fL Neut % (Auto) 80.9 H (48.0-80.0) % Lymph % (Auto) 9.8 L (16.0-40.0) % [place] % (Auto) 9.1 (0.0-15.0) % Eos % (Auto) 0.1 (0.0-7.0) % Baso % (Auto) 0.1 (0.0-1.5) % Neut # (Auto) 12.8 H (1.4-5.7) K/uL Lymph # (Auto) 1.6 (0.6-2.4) K/uL [place] # (Auto) 1.4 H (0.0-0.8) K/uL Eos # (Auto) 0.0 (0.0-0.7) K/uL Baso # (Auto) 0.0 (0.0-0.1) K/uL Nucleated RBC % 0.0 /100WBC Nucleated RBCs # 0 K/uL Sodium (136-145) mmol/L Potassium (3.5-5.1) mmol/L Chloride (98-107) mmol/L Carbon Dioxide (21.0-32.0) mmol/L BUN (7.0-18.0) mg/dL Creatinine (0.6-1.0) mg/dL Est Cr Clr Drug Dosing mL/min Estimated GFR (MDRD) ml/min Glucose (74-106) mg/dL Calcium (8.5-10.1) mg/dL Total Bilirubin (0.2-1.0) mg/dL AST (15-37) IU/L ALT (14-63) IU/L Alkaline Phosphatase (46-116) U/L Total Protein (6.4-8.2) g/dL Albumin (3.4-5.0) g/dL Globulin (2.6-4.0) g/dL Albumin/Globulin Ratio (0.9-1.6) Urine Color YELLOW Urine Appearance SLT CLOUDY Urine pH 6.0 (5.0-8.0) Ur Specific [place] 1.020 (1.001-1.035) Urine Protein TRACE H (NEGATIVE) mg/dL Urine Glucose (UA) NEGATIVE (NEGATIVE) mg/dL Urine Ketones 15 H (NEGATIVE) mg/dL Urine Occult Blood TRACE-INTACT H (NEGATIVE) Urine Nitrite POSITIVE H (NEGATIVE) Urine Bilirubin NEGATIVE (NEGATIVE) Urine Urobilinogen 0.2 (<2.0) EU/dL Ur Leukocyte Esterase SMALL H (NEGATIVE) Urine RBC 0-2 (0-2/HPF) Urine WBC 10-15 (0-5/HPF) Ur Epithelial Cells FEW (NONE-FEW) Urine Bacteria 3+ H (NEGATIVE) Urine HCG, Qual NEGATIVE (NEGATIVE) 11/08/19 Range/Units 12:20 WBC (4.0-11.0) K/uL RBC (4.30-5.90) M/uL Hgb (12.0-16.0) g/dL Hct (36.0-46.0) % MCV (80.0-98.0) fL MCH (27.0-32.0) pg MCHC (31.0-37.0) g/dL RDW Std Deviation (28.0-62.0) fl RDW Coeff of [place] (11.0-15.0) % Plt Count (150-400) K/uL MPV (7.40-12.00) fL Neut % (Auto) (48.0-80.0) % Lymph % (Auto) (16.0-40.0) % [place] % (Auto) (0.0-15.0) % Eos % (Auto) (0.0-7.0) % Baso % (Auto) (0.0-1.5) % Neut # (Auto) (1.4-5.7) K/uL Lymph # (Auto) (0.6-2.4) K/uL [place] # (Auto) (0.0-0.8) K/uL Eos # (Auto) (0.0-0.7) K/uL Baso # (Auto) (0.0-0.1) K/uL Nucleated RBC % /100WBC Nucleated RBCs # K/uL Sodium 137 (136-145) mmol/L Potassium 3.4 L (3.5-5.1) mmol/L Chloride 101 (98-107) mmol/L Carbon Dioxide 27.3 (21.0-32.0) mmol/L BUN 5 L (7.0-18.0) mg/dL Creatinine 0.7 (0.6-1.0) mg/dL Est Cr Clr Drug Dosing 95.48 mL/min Estimated GFR (MDRD) > 60.0 ml/min Glucose 121 H (74-106) mg/dL Calcium 8.1 L (8.5-10.1) mg/dL Total Bilirubin 0.8 (0.2-1.0) mg/dL AST 107 H (15-37) IU/L ALT 195 H (14-63) IU/L Alkaline Phosphatase 100 (46-116) U/L Total Protein 6.5 (6.4-8.2) g/dL Albumin 3.2 L (3.4-5.0) g/dL Globulin 3.3 (2.6-4.0) g/dL Albumin/Globulin Ratio 1.0 (0.9-1.6) Urine Color Urine Appearance Urine pH (5.0-8.0) Ur Specific [place] (1.001-1.035) Urine Protein (NEGATIVE) mg/dL Urine Glucose (UA) (NEGATIVE) mg/dL Urine Ketones (NEGATIVE) mg/dL Urine Occult Blood (NEGATIVE) Urine Nitrite (NEGATIVE) Urine Bilirubin (NEGATIVE) Urine Urobilinogen (<2.0) EU/dL Ur Leukocyte Esterase (NEGATIVE) Urine RBC (0-2/HPF) Urine WBC (0-5/HPF) Ur Epithelial Cells (NONE-FEW) Urine Bacteria (NEGATIVE) Urine HCG, Qual (NEGATIVE) Meds: Medications Discontinued Medications Generic Name Dose Route Start Last Admin Trade Name Freq PRN Reason Stop Dose Admin Ciprofloxacin 500 mg 11/08/19 12:36 11/08/19 13:02 Ciprofloxacin Hcl PO 11/08/19 12:37 500 mg ONETIME ONE Administration Sodium Chloride 1,000 mls @ 999 mls/hr 08/22/20 12:17 11/08/19 12:34 Normal Saline IV 11/08/19 13:17 999 mls/hr STAT ONE Administration Ketorolac Tromethamine 30 mg 11/08/19 12:17 11/08/19 12:34 Toradol IVPUSH 11/08/19 12:18 30 mg ONETIME ONE Administration Phenazopyridine HCl 200 mg 11/08/19 12:36 11/08/19 13:02 Pyridium PO 11/08/19 12:37 200 mg ONETIME ONE Administration Departure - Departure Time of Disposition: 13:35 Disposition: Home, Self-Care 01 Clinical Impression: Pyelonephritis - Discharge Information Prescriptions: Ciprofloxacin [Ciprofloxacin HCl] 500 mg PO BID 7 Days #13 tab Acetaminophen/HYDROcodone [[place] 325-5 MG] 1 dose PO Q4H #20 tablet Phenazopyridine HCl [Pyridium] 100 mg PO TID 2 Days #6 tablet Instructions: Pyelonephritis, Adult, [id number] Referrals: PCP,Not In Area [Primary Care Provider] - Forms: ED Department Discharge Additional Instructions: The following information is given to patients seen in the emergency department who are being discharged to home. This information is to outline your options for follow-up care. We provide all patients seen in our emergency department with a follow-up referral. The need for follow-up, as well as the timing and circumstances, are variable depending upon the specifics of your emergency department visit. If you don't have a primary care physician on staff, we will provide you with a referral. We always advise you to contact your personal physician following an emergency department visit to inform them of the circumstance of the visit and for follow-up with them and/or the need for any referrals to a consulting specialist. The emergency department will also refer you to a specialist when appropriate. This referral assures that you have the opportunity for follow-up care with a specialist. All of these measure are taken in an effort to provide you with optimal care, which includes your follow-up. Under all circumstances we always encourage you to contact your private physician who remains a resource for coordinating your care. When calling for follow-up care, please make the office aware that this follow-up is from your recent emergency room visit. If for any reason you are refused follow-up, please contact the [facility] Emergency Department at and asked to speak to the emergency department charge nurse. [facility] [address] [place] [address] [facility] [address] [place] [address] Thank you for choosing the [facility] emergency department in [place] for your medical needs today. It was a pleasure caring for you. Today you were seen in the emergency department for kidney infection. 1. Today your physical exam shows you have a bladder infection that is now traveled to the right kidney. You were offered admission which you declined. If at any time your pain should worsen, you are unable to keep your antibiotics down or you feel like you are not improving please return and we will reassess if you need to be admitted. 2. Increase your oral fluids. You can alternate Tylenol and/or ibuprofen. 3. We always encourage you to follow up with your primary care provider or recommended specialist in the next few days for re-evaluation and further care/management. If your symptoms should worsen, new symptoms develop or any of the signs and symptoms we discussed should arise please return to the emergency room or call 911 (if needed). Sepsis Event Note (ED) - Focused Exam Vital Signs: Vital Signs Temp Pulse Resp BP Pulse Ox 11/08/19 12:06 95.9 F L 109 H 16 112/69 99 - My Orders Last 24 Hours: My Active Orders 11/08/19 12:00 CULTURE URINE [RM] Stat - Assessment/Plan Last 24 Hours: My Active Orders 11/08/19 12:00 CULTURE URINE [RM] Stat
[2019-11-08] MEDS ORDERED: Ketorolac 30 MG/ML SDV IVPUSH ONE (12:17)
[2019-11-08] MEDS ORDERED: Sodium Chloride 0.9% 1,000 ML IV ONE (12:17)
[2019-11-08] MEDS ORDERED: Ciprofloxacin 500 MG Tab PO ONE (12:36)
[2019-11-08] MEDS ORDERED: Phenazopyridine 200 MG Tab PO ONE (12:36)
[2019-11-08 12:54] LABS: BLOOD UREA NITROGEN,BUN 5 mg/dL (7.0-18.0); CARBON DIOXIDE,CO2 27.3 mmol/L (21.0-32.0); CHLORIDE,CL 101 mmol/L (98-107); GLUCOSE RANDOM 121 mg/dL (74-106); POTASSIUM,K 3.4 mmol/L (3.5-5.1); SODIUM,NA 137 mmol/L (136-145)
[2019-11-08 16:37] VITALS: BP 103/57; PULSE 99
== END 2019-11-08 13:43 | disposition home or self-care (01) ==
LOC: MW.ED 11:49
DX: N12 Tubulo-interstitial nephritis, not specified as acute or chronic (principal); D72.829 Elevated white blood cell count, unspecified; J45.909 Unspecified asthma, uncomplicated
CPT/HCPCS: 36415; 80053; 81001; 81025; 85025; 87086; 87088; 87186; 96361; 96374; 99284; A9270; J1885; J7030; 99283

== ENCOUNTER 2019-11-09 10:11 | Inpatient (IN) | payer MEDICAID, OTHER ==
[2019-11-09] MEDS ORDERED: Sodium Chloride 0.9% 1,000 ML IV ONE ×2 (10:12→12:00)
--- NOTE | 2019-11-09 10:35 | EDM.PDOC ---
ED HPI GENERAL MEDICAL PROBLEM - General Chief Complaint: Genitourinary Problem Stated Complaint: KIDNEY PAIN Time Seen by Provider: 11/09/19 10:11 Source of Information: Reports: Patient History Limitations: Reports: No Limitations - History of Present Illness INITIAL COMMENTS - FREE TEXT/NARRATIVE: HISTORY AND PHYSICAL: History of present illness: Patient is a 29-year-old female who presents to the emergency room with complaints of right flank pain. She was seen in our emergency room yesterday with complaints of right flank pain and diagnosed with pyelonephritis. She was encouraged to stay for IV fluids and antibiotics but declined requesting to attempt outpatient treatment. She was given a prescription for Cipro, Pyridium and [place]. She states she was able to take her antibiotics last evening and slept through the night. Woke up this morning feeling "worse" and not able to keep anything down (medications/food) this morning. She states the pain is now radiating into the right mid abdomen. Patient denies any fever, chills, headache, change in vision, syncope or near syncope. Denies any chest pain, back pain, shortness of breath or cough. Denies any diarrhea, constipation or dysuria. Has not noted any blood in urine or stool. Patient has been eating and drinking appropriately. Review of systems: As per history of present illness and below otherwise all systems reviewed and negative. Past medical history: As per history of present illness and as reviewed below otherwise noncontributory. Surgical history: As per history of present illness and as reviewed below otherwise noncontributory. Social history: See social history for further information Family history: As per history of present illness and as reviewed below otherwise noncontrib utory. Physical exam: General: Well developed and well nourished 29-year-old female. Alert and orientated x 3. Nontoxic in appearance and in no acute distress. Vital signs are stable and have been reviewed by me. Nursing notes were reviewed. HEENT: Atraumatic, normocephalic, pupils equal and reactive bilaterally, negative for conjunctival pallor or scleral icterus, mucous membranes moist, neck nontender, trachea midline. No drooling or trismus noted. No meningeal signs. No hot potato voice noted. Lungs: Clear to auscultation, breath sounds equal bilaterally, chest nontender. Normal work of breathing, no accessory muscles used. Heart: S1S2, regular rate and rhythm without overt murmur Abdomen: Soft, nondistended, RUQ/RLQ tenderness -no rebound tenderness. Negative for masses or hepatosplenomegaly. Right-sided costovertebral tenderness. Skin: Intact, warm, dry. No lesions or rashes noted. Hematologic: No petechiae or purpra. Mucosa appropriate color and normal nail bed color and refill. Extremities: Atraumatic, moves all extremities per self without difficulty or deficits, negative for cords or calf pain. Neurovascular unremarkable. Neuro: Awake, alert, oriented. Cranial nerves II through XII unremarkable. Cerebellum unremarkable. Motor and sensory unremarkable throughout. Exam nonfocal. Notes: Patient was encouraged to be admitted last night, she declined, wanting to attempt outpatient antibiotics. Lab work yesterday on 11/08/2019 showed WBC 15.77, negative urine , positive nitrates, 10-15 WBCs, +[address] shows acute pyelonephritis on the right. Normal-appearing appendix. No kidney stone or obstruction noted. Moderate amount of stool throughout the colon. Bowel is otherwise unremarkable. No free fluid noted. Patient states she would like to be admitted as she has not been able to keep her medications down and feels worse than yesterday. Patient white count is now 12, blood cultures have been added. Her lactate is elevated at 3.7. Second liter of fluids have been ordered. Dr. Templeton, hospitalist on-call, has been consulted on this case. He is agreeable to keeping her for inpatient admission. Patient's vital signs remained stable. She is aware of admission. Diagnostics: CBC, CMP, lactate, CT abd/pelvis, BC x 2 Therapeutics: IV fluid, morphine, Rocephin Impression: Pyelonephritis, right Plan: Inpatient admission to med/surg Definitive disposition and diagnosis as appropriate pending reevaluation and review of above. right flank Pain Score (Numeric/FACES): 10 - Related Data Allergies Allergy/AdvReac Type Severity Reaction Status Date / Time No Known Allergies Allergy Verified 11/09/19 13:21 Home Meds: Home Meds Acetaminophen/HYDROcodone [[place] 325-5 MG] 1 dose PO Q4H #20 tablet 11/08/19 [Rx] Ciprofloxacin [Ciprofloxacin HCl] 500 mg PO BID 7 Days #13 tab 11/08/19 [Rx] Non-Formulary Medication [NF Drug] 0 each PO DAILY 11/08/19 [History] Phenazopyridine HCl [Pyridium] 100 mg PO TID 2 Days #6 tablet 11/08/19 [Rx] Past Medical History - Past Health History Medical/Surgical History: Denies Medical/Surgical History HEENT History: Reports: None Cardiovascular History: Reports: Other (See Below) 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" Respiratory History: Reports: Asthma Gastrointestinal History: Reports: GERD Genitourinary History: Reports: None 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: Musculoskeletal History: Reports: None Neurological History: Reports: None Psychiatric History: Reports: Anxiety, Depression, PTSD, Suicidal Ideation Endocrine/Metabolic History: Reports: None Hematologic History: Reports: None Immunologic History: Reports: None Oncologic (Cancer) History: Reports: None Dermatologic History: Reports: None - Infectious Disease History Infectious Disease History: Reports: None - Past Surgical History GI Surgical History: Reports: Cholecystectomy Social & Family History - Family History Family Medical History: Noncontributory - Caffeine Use Caffeine Use: Reports: Coffee, Soda - Living Situation & Occupation Living situation: Reports: Single Occupation: Unemployed ED ROS GENERAL - Review of Systems Review Of Systems: Comprehensive ROS is negative, except as noted in HPI. ED EXAM, RENAL/ - Physical Exam Exam: See Below (See dictation) Course - Vital Signs Last Recorded V/S: Last Vital Signs Temp 98.7 F 11/09/19 14:30 Pulse 98 11/09/19 14:30 Resp 17 11/09/19 14:30 BP 109/55 L 11/09/19 14:30 Pulse Ox 94 L 11/09/19 14:30 - Orders/Labs/Meds Orders: Active Orders 24 hr Category Date Time Status Patient Status [ADT] Stat ADT 11/09/19 12:06 Active CULTURE BLOOD [BC] Stat Lab 11/09/19 11:42 Results CULTURE BLOOD [BC] Stat Lab 11/09/19 12:27 Received CULTURE URINE [RM] Stat Lab 11/09/19 13:30 Received LACTIC ACID,WHOLE BLOOD [BG] Routine Lab 11/09/19 16:42 Ordered Blood Culture x2 Reflex Set [OM.PC] Stat Oth 11/09/19 12:01 Ordered Medication Orders Acetaminophen (Tylenol) 650 mg PO Q6H PRN PRN Reason: Pain Last Admin: 11/09/19 13:54 Dose: 650 mg Documented by: ABBY Sodium Chloride (Normal Saline) 1,000 mls @ 150 mls/hr IV ASDIRECTED JALEESA Last Admin: 11/09/19 13:50 Dose: 150 mls/hr Documented by: ABBY Ceftriaxone Sodium/Dextrose 1 (gm/ Premix) 50 mls @ 100 mls/hr IV Q24H [facility] Labs: Laboratory Tests 11/09/19 11/09/19 11/09/19 Range/Units 11:42 11:42 11:42 WBC 12.04 H (4.0-11.0) K/uL RBC 3.88 L (4.30-5.90) M/uL Hgb 10.8 L (12.0-16.0) g/dL Hct 34.4 L (36.0-46.0) % MCV 88.7 (80.0-98.0) fL MCH 27.8 (27.0-32.0) pg MCHC 31.4 (31.0-37.0) g/dL RDW Std Deviation 45.9 (28.0-62.0) fl RDW Coeff of Dorothy 14 (11.0-15.0) % Plt Count 240 (150-400) K/uL MPV 11.10 (7.40-12.00) fL Neut % (Auto) 75.0 (48.0-80.0) % Lymph % (Auto) 12.5 L (16.0-40.0) % [place] % (Auto) 11.6 (0.0-15.0) % Eos % (Auto) 0.7 (0.0-7.0) % Baso % (Auto) 0.2 (0.0-1.5) % Neut # (Auto) 9.0 H (1.4-5.7) K/uL Lymph # (Auto) 1.5 (0.6-2.4) K/uL [place] # (Auto) 1.4 H (0.0-0.8) K/uL Eos # (Auto) 0.1 (0.0-0.7) K/uL Baso # (Auto) 0.0 (0.0-0.1) K/uL Nucleated RBC % 0.0 /100WBC Nucleated RBCs # 0 K/uL Lactate 3.7 H* (0.20-2.00) mmol/L Sodium 139 (136-145) mmol/L Potassium 3.4 L (3.5-5.1) mmol/L Chloride 103 (98-107) mmol/L Carbon Dioxide 28.0 (21.0-32.0) mmol/L BUN 5 L (7.0-18.0) mg/dL Creatinine 0.7 (0.6-1.0) mg/dL Est Cr Clr Drug Dosing 95.48 mL/min Estimated GFR (MDRD) > 60.0 ml/min Glucose 88 (74-106) mg/dL Calcium 7.3 L (8.5-10.1) mg/dL Total Bilirubin 0.7 (0.2-1.0) mg/dL AST 108 H (15-37) IU/L ALT 179 H (14-63) IU/L Alkaline Phosphatase 91 (46-116) U/L Total Protein 5.5 L (6.4-8.2) g/dL Albumin 2.6 L (3.4-5.0) g/dL Globulin 2.9 (2.6-4.0) g/dL Albumin/Globulin Ratio 0.9 (0.9-1.6) COVID-19 ([facility]ERRON) (NEGATIVE) 11/09/19 Range/Units 11:57 WBC (4.0-11.0) K/uL RBC (4.30-5.90) M/uL Hgb (12.0-16.0) g/dL Hct (36.0-46.0) % MCV (80.0-98.0) fL MCH (27.0-32.0) pg MCHC (31.0-37.0) g/dL RDW Std Deviation (28.0-62.0) fl RDW Coeff of [place] (11.0-15.0) % Plt Count (150-400) K/uL MPV (7.40-12.00) fL Neut % (Auto) (48.0-80.0) % Lymph % (Auto) (16.0-40.0) % [place] % (Auto) (0.0-15.0) % Eos % (Auto) (0.0-7.0) % Baso % (Auto) (0.0-1.5) % Neut # (Auto) (1.4-5.7) K/uL Lymph # (Auto) (0.6-2.4) K/uL [place] # (Auto) (0.0-0.8) K/uL Eos # (Auto) (0.0-0.7) K/uL Baso # (Auto) (0.0-0.1) K/uL Nucleated RBC % /100WBC Nucleated RBCs # K/uL Lactate (0.20-2.00) mmol/L Sodium (136-145) mmol/L Potassium (3.5-5.1) mmol/L Chloride (98-107) mmol/L Carbon Dioxide (21.0-32.0) mmol/L BUN (7.0-18.0) mg/dL Creatinine (0.6-1.0) mg/dL Est Cr Clr Drug Dosing mL/min Estimated GFR (MDRD) ml/min Glucose (74-106) mg/dL Calcium (8.5-10.1) mg/dL Total Bilirubin (0.2-1.0) mg/dL AST (15-37) IU/L ALT (14-63) IU/L Alkaline Phosphatase (46-116) U/L Total Protein (6.4-8.2) g/dL Albumin (3.4-5.0) g/dL Globulin (2.6-4.0) g/dL Albumin/Globulin Ratio (0.9-1.6) COVID-19 (SHERRON) NEGATIVE (NEGATIVE) Meds: Medications Generic Name Dose Route Start Last Admin Trade Name Freq PRN Reason Stop Dose Admin Acetaminophen 650 mg 11/09/19 13:30 11/09/19 13:54 Tylenol PO 650 mg Q6H PRN Administration Pain Sodium Chloride 1,000 mls @ 150 mls/hr 11/09/19 13:45 11/09/19 13:50 Normal Saline IV 150 mls/hr ASDIRECTED JALEESA Administration Ceftriaxone Sodium/Dextrose 1 50 mls @ 100 mls/hr 11/10/19 12:00 gm/ Premix IV Q24H JALEESA Discontinued Medications Generic Name Dose Route Start Last Admin Trade Name Freq PRN Reason Stop Dose Admin Hydromorphone HCl 1 mg 11/09/19 12:28 11/09/19 12:32 Dilaudid IVPUSH 11/09/19 12:29 1 mg ONETIME ONE Administration Sodium Chloride 1,000 mls @ 999 mls/hr 11/09/19 10:12 11/09/19 10:41 Normal Saline IV 11/09/19 11:12 999 mls/hr STAT ONE Administration Sodium Chloride 1,000 mls @ 999 mls/hr 11/09/19 12:00 11/09/19 12:29 Normal Saline IV 11/09/19 13:00 999 mls/hr STAT ONE Administration Ceftriaxone Sodium/Dextrose 1 50 mls @ 100 mls/hr 11/09/19 12:06 11/09/19 12:29 gm/ Premix IV 11/09/19 12:35 100 mls/hr ONETIME ONE Administration Iopamidol 100 ml 11/09/19 11:24 11/09/19 11:24 Isovue Multipack-370 (76%) IVPUSH 11/09/19 11:25 100 ml ONETIME ONE Administration Morphine Sulfate 4 mg 11/09/19 10:37 11/09/19 10:41 Morphine IVPUSH 11/09/19 10:38 4 mg ONETIME ONE Administration Departure - Departure Time of Disposition: 15:02 Disposition: Admitted As Inpatient 68 Clinical Impression: Acute pyelonephritis - Discharge Information Sepsis Event Note (ED) - Focused Exam Vital Signs: Vital Signs Temp Pulse Resp BP Pulse Ox 11/09/19 10:36 97.6 F 108 H 18 120/69 98 - My Orders Last 24 Hours: My Active Orders 11/09/19 11:42 CULTURE BLOOD [BC] Stat 11/09/19 12:01 Blood Culture x2 Reflex Set [OM.PC] Stat 11/09/19 12:06 Patient Status [ADT] Stat 11/09/19 12:27 CULTURE BLOOD [BC] Stat 11/09/19 13:30 CULTURE URINE [RM] Stat 11/09/19 16:42 LACTIC ACID,WHOLE BLOOD [BG] Routine - Assessment/Plan Last 24 Hours: My Active Orders 11/09/19 11:42 CULTURE BLOOD [BC] Stat 11/09/19 12:01 Blood Culture x2 Reflex Set [OM.PC] Stat 11/09/19 12:06 Patient Status [ADT] Stat 11/09/19 12:27 CULTURE BLOOD [BC] Stat 11/09/19 13:30 CULTURE URINE [RM] Stat 11/09/19 16:42 LACTIC ACID,WHOLE BLOOD [BG] Routine
[2019-11-09] MEDS ORDERED: Morphine 4 MG/ML Syringe IVPUSH ONE (10:37)
[2019-11-09] MEDS ORDERED: Iopamidol 755 MG/ML 200 ML Multipack Bottle IVPUSH ONE (11:24)
--- NOTE | 2019-11-09 11:49 | CT ---
INDICATION: Right flank and right lower quadrant pain. TECHNIQUE: Volumetric helical scanning of the abdomen and pelvis was performed with 100 cc of Isovue 370 contrast material IV. Coronal and sagittal reconstructions were obtained. COMPARISON: Abdomen/pelvis CT of 12/19/2017. FINDINGS: Acute pyelonephritis is demonstrated on the right. No urinary tract stone or obstruction is evident. The left kidney is normal. A normal appendix is noted. There is a moderate amount of stool throughout the colon. The bowel is otherwise unremarkable. No free fluid is demonstrated. The liver is normal in size, shape and attenuation. No bile duct dilation is evident. The spleen is within normal limits. The adrenal glands are unremarkable. The pancreas is within normal limits. No lymphadenopathy is evident. The uterus and ovaries are unremarkable. The lung bases are essentially clear. The heart is normal in size. IMPRESSION: 1. Acute pyelonephritis on the right. No urinary tract stone or obstruction. 2. Normal appendix. 3. Possible constipation. 4. Post cholecystectomy. Please note that all CT scans at this facility use dose modulation, iterative reconstruction, and/or weight-based dosing when appropriate to reduce radiation dose to as low as reasonably achievable. Dictated by Tano Melgar MD @ Nov 09 2019 11:43AM Signed by Dr. Tano Melgar @ Nov 09 2019 11:47AM
[2019-11-09] MEDS ORDERED: cefTRIAXone 1 GM in Premix Bag 1 BAG IV ONE (12:06)
[2019-11-09 12:17] LABS: BLOOD UREA NITROGEN,BUN 5 mg/dL (7.0-18.0); CHLORIDE,CL 103 mmol/L (98-107); GLUCOSE RANDOM 88 mg/dL (74-106); POTASSIUM,K 3.4 mmol/L (3.5-5.1); SODIUM,NA 139 mmol/L (136-145)
[2019-11-09] MEDS ORDERED: HYDROmorphone 1 MG/ML Syringe IVPUSH ONE (12:28)
[2019-11-09] MEDS: Sodium Chloride 0.9% 1,000 ML IV SCH ×2 (13:50→20:54)
[2019-11-09] MEDS: Acetaminophen 325 MG Tab PO PRN ×2 (13:54→20:49)
[2019-11-09] MEDS: Morphine 2 MG/ML SYRINGE IVPUSH PRN (16:34)
--- NOTE | 2019-11-09 17:55 | PCM.HP.2 ---
H&P History of Present Illness - General Date of Service: 11/09/19 Admit Problem/Dx: Admission Diagnosis/Problem Admission Diagnosis/Problem Acute pyelonephritis - History of Present Illness Initial Comments - Free Text/Narative: 29 yo female who presents with four day history of right flank pain, fevers and myalgias. She was seen in the ED yesterday deferred admission and sent home with ciprofloxacin for treatment of pyelonephritis. She presents to the ED again today with increasing nausea and vomiting and not able to keep pills down. CT scan of the abdomen reports right pyelonephritis. 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 right flank Pain Score (Numeric/FACES): 10 - Related Data Allergies/Adverse Reactions: Allergies Allergy/AdvReac Type Severity Reaction Status Date / Time No Known Allergies Allergy Verified 11/09/19 13:21 Home Medications: Home Meds Acetaminophen/HYDROcodone [[place] 325-5 MG] 1 dose PO Q4H #20 tablet 11/08/19 [Rx] Ciprofloxacin [Ciprofloxacin HCl] 500 mg PO BID 7 Days #13 tab 11/08/19 [Rx] Non-Formulary Medication [NF Drug] 0 each PO DAILY 11/08/19 [History] Phenazopyridine HCl [Pyridium] 100 mg PO TID 2 Days #6 tablet 11/08/19 [Rx] Past Medical History - Past Health History Medical/Surgical History: Denies Medical/Surgical History HEENT History: Reports: None Cardiovascular History: Reports: Other (See Below) 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" Respiratory History: Reports: Asthma Gastrointestinal History: Reports: GERD Genitourinary History: Reports: None 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: Musculoskeletal History: Reports: None Neurological History: Reports: None Psychiatric History: Reports: Anxiety, Depression, PTSD, Suicidal Ideation Endocrine/Metabolic History: Reports: None Hematologic History: Reports: None Immunologic History: Reports: None Oncologic (Cancer) History: Reports: None Dermatologic History: Reports: None - Infectious Disease History Infectious Disease History: Reports: None - Past Surgical History GI Surgical History: Reports: Cholecystectomy Social & Family History - Family History Family Medical History: Noncontributory - Tobacco Use Smoking Status *Q: Current Every Day Smoker Years of Tobacco use: 11 Packs/Tins Daily: 0.5 Used Tobacco, but Quit: Yes Month/Year Tobacco Last Used: October 2019 - Caffeine Use Caffeine Use: Reports: Coffee, Soda - Recreational Drug Use Recreational Drug Use: Yes Drug Use in Last 12 Months: Yes Recreational Drug Type: Reports: Heroin, Marijuana/Hashish, Methamphetamine Other Recreational Drug Type: patient stated " used heroin, marijuana and meth on a daily basis since maryse' last july 03, 2017. The last day of use was June 29, 2019". - Living Situation & Occupation Living situation: Reports: Single Occupation: Unemployed H&P Review of Systems - Review of Systems: Review Of Systems: Comprehensive ROS is negative, except as noted in HPI. Exam - Vital Signs Vital Signs: Last Vital Signs Temp 36.6 C 11/09/19 16:35 Pulse 88 11/09/19 16:35 Resp 18 11/09/19 16:35 BP 109/57 L 11/09/19 16:35 Pulse Ox 95 11/09/19 16:35 Weight: 77.383 kg - Exam General: Alert, Oriented Lungs: Clear to Auscultation, Normal Respiratory Effort Cardiovascular: Regular Rate, Regular Rhythm GI/Abdominal Exam: Normal Bowel Sounds, Soft, Non-Tender Back Exam: CVA Tenderness (R) Extremities: Non-Tender, No Pedal Edema Skin: Warm, Dry, Intact Neurological: Cranial Nerves Intact - Patient Data Lab Results Last 24 hrs: Laboratory Results - last 24 hr 11/09/19 11/09/19 11/09/19 Range/Units 11:42 11:42 11:42 WBC 12.04 H (4.0-11.0) K/uL RBC 3.88 L (4.30-5.90) M/uL Hgb 10.8 L (12.0-16.0) g/dL Hct 34.4 L (36.0-46.0) % MCV 88.7 (80.0-98.0) fL MCH 27.8 (27.0-32.0) pg MCHC 31.4 (31.0-37.0) g/dL RDW Std Deviation 45.9 (28.0-62.0) fl RDW Coeff of Dorothy 14 (11.0-15.0) % Plt Count 240 (150-400) K/uL MPV 11.10 (7.40-12.00) fL Neut % (Auto) 75.0 (48.0-80.0) % Lymph % (Auto) 12.5 L (16.0-40.0) % Page % (Auto) 11.6 (0.0-15.0) % Eos % (Auto) 0.7 (0.0-7.0) % Baso % (Auto) 0.2 (0.0-1.5) % Neut # (Auto) 9.0 H (1.4-5.7) K/uL Lymph # (Auto) 1.5 (0.6-2.4) K/uL Page # (Auto) 1.4 H (0.0-0.8) K/uL Eos # (Auto) 0.1 (0.0-0.7) K/uL Baso # (Auto) 0.0 (0.0-0.1) K/uL Nucleated RBC % 0.0 /100WBC Nucleated RBCs # 0 K/uL Lactate 3.7 H* (0.20-2.00) mmol/L Sodium 139 (136-145) mmol/L Potassium 3.4 L (3.5-5.1) mmol/L Chloride 103 (98-107) mmol/L Carbon Dioxide 28.0 (21.0-32.0) mmol/L BUN 5 L (7.0-18.0) mg/dL Creatinine 0.7 (0.6-1.0) mg/dL Est Cr Clr Drug Dosing 95.48 mL/min Estimated GFR (MDRD) > 60.0 ml/min Glucose 88 (74-106) mg/dL Calcium 7.3 L (8.5-10.1) mg/dL Total Bilirubin 0.7 (0.2-1.0) mg/dL AST 108 H (15-37) IU/L ALT 179 H (14-63) IU/L Alkaline Phosphatase 91 (46-116) U/L Total Protein 5.5 L (6.4-8.2) g/dL Albumin 2.6 L (3.4-5.0) g/dL Globulin 2.9 (2.6-4.0) g/dL Albumin/Globulin Ratio 0.9 (0.9-1.6) Urine Color Urine Appearance Urine pH (5.0-8.0) Ur Specific [place] (1.001-1.035) Urine Protein (NEGATIVE) mg/dL Urine Glucose (UA) (NEGATIVE) mg/dL Urine Ketones (NEGATIVE) mg/dL Urine Occult Blood (NEGATIVE) Urine Nitrite (NEGATIVE) Urine Bilirubin (NEGATIVE) Urine Urobilinogen (<2.0) EU/dL Ur Leukocyte Esterase (NEGATIVE) Urine RBC (0-2/HPF) Urine WBC (0-5/HPF) Ur Epithelial Cells (NONE-FEW) Urine Bacteria (NEGATIVE) COVID-19 ([facility]ON) (NEGATIVE) 11/09/19 11/09/19 11/09/19 Range/Units 11:57 13:30 16:50 WBC (4.0-11.0) K/uL RBC (4.30-5.90) M/uL Hgb (12.0-16.0) g/dL Hct (36.0-46.0) % MCV (80.0-98.0) fL MCH (27.0-32.0) pg MCHC (31.0-37.0) g/dL RDW Std Deviation (28.0-62.0) fl RDW Coeff of [place] (11.0-15.0) % Plt Count (150-400) K/uL MPV (7.40-12.00) fL Neut % (Auto) (48.0-80.0) % Lymph % (Auto) (16.0-40.0) % Page % (Auto) (0.0-15.0) % Eos % (Auto) (0.0-7.0) % Baso % (Auto) (0.0-1.5) % Neut # (Auto) (1.4-5.7) K/uL Lymph # (Auto) (0.6-2.4) K/uL Page # (Auto) (0.0-0.8) K/uL Eos # (Auto) (0.0-0.7) K/uL Baso # (Auto) (0.0-0.1) K/uL Nucleated RBC % /100WBC Nucleated RBCs # K/uL Lactate 0.6 (0.20-2.00) mmol/L Sodium (136-145) mmol/L Potassium (3.5-5.1) mmol/L Chloride (98-107) mmol/L Carbon Dioxide (21.0-32.0) mmol/L BUN (7.0-18.0) mg/dL Creatinine (0.6-1.0) mg/dL Est Cr Clr Drug Dosing mL/min Estimated GFR (MDRD) ml/min Glucose (74-106) mg/dL Calcium (8.5-10.1) mg/dL Total Bilirubin (0.2-1.0) mg/dL AST (15-37) IU/L ALT (14-63) IU/L Alkaline Phosphatase (46-116) U/L Total Protein (6.4-8.2) g/dL Albumin (3.4-5.0) g/dL Globulin (2.6-4.0) g/dL Albumin/Globulin Ratio (0.9-1.6) Urine Color YELLOW Urine Appearance HAZY Urine pH 7.0 (5.0-8.0) Ur Specific [place] 1.010 (1.001-1.035) Urine Protein NEGATIVE (NEGATIVE) mg/dL Urine Glucose (UA) NEGATIVE (NEGATIVE) mg/dL Urine Ketones NEGATIVE (NEGATIVE) mg/dL Urine Occult Blood TRACE-INTACT H (NEGATIVE) Urine Nitrite NEGATIVE (NEGATIVE) Urine Bilirubin NEGATIVE (NEGATIVE) Urine Urobilinogen 4.0 H (<2.0) EU/dL Ur Leukocyte Esterase TRACE H (NEGATIVE) Urine RBC 3-7 (0-2/HPF) Urine WBC 3-6 (0-5/HPF) Ur Epithelial Cells MODERATE (NONE-FEW) Urine Bacteria FEW (NEGATIVE) COVID-19 (SHERRON) NEGATIVE (NEGATIVE) Result Diagrams: 11/09/19 11:42 11/09/19 11:42 Michael Results Last 24 hrs: Microbiology 11/09/19 11:42 Anaerobic Blood Culture - Final Blood - Venous Sepsis Event Note - Evaluation Sepsis Screening Result: Severe Sepsis Risk - Focused Exam Vital Signs: Vital Signs Temp Temp Pulse Resp BP BP Pulse Ox 11/09/19 16:35 36.6 C 88 18 109/57 L 95 11/09/19 14:30 37.1 C 98 17 109/55 L 94 L 11/09/19 13:54 37.4 C 11/09/19 13:30 37.3 C 94 17 117/59 L 96 11/09/19 13:15 37.4 C 99 18 123/62 95 11/09/19 12:34 37.1 C 104 H 18 119/64 98 11/09/19 10:36 36.4 C 108 H 18 120/69 98 Problem List Initiated/Reviewed/Updated: Yes Orders Last 24hrs: Active Orders 24 hr Category Date Time Status Patient Status [ADT] Stat ADT 11/09/19 12:06 Active Antiembolic Devices [RC] PER UNIT ROUTINE Care 11/09/19 17:50 Ordered Oxygen Therapy [RC] PRN Care 11/09/19 17:49 Ordered Up ad Lona [RC] ASDIRECTED Care 11/09/19 17:49 Ordered VTE/DVT Education [RC] PER UNIT ROUTINE Care 11/09/19 17:49 Ordered Vital Signs [RC] Q4H Care 11/09/19 16:00 Active Vital Signs [RC] Q4H Care 11/09/19 17:49 Ordered Regular Diet [DIET] Diet 11/09/19 Dinner Active BASIC METABOLIC PANEL,BMP [CHEM] AM Lab 11/10/19 05:11 Ordered CBC WITH AUTO DIFF [HEME] AM Lab 11/10/19 05:11 Ordered CULTURE BLOOD [BC] Stat Lab 11/09/19 11:42 Results CULTURE BLOOD [BC] Stat Lab 11/09/19 12:27 Received CULTURE URINE [RM] Stat Lab 11/09/19 13:30 Received Acetaminophen [TylenoL] Med 11/09/19 13:30 Active 650 mg PO Q6H PRN Enoxaparin [Lovenox] Med 11/09/19 18:00 Ordered 40 mg SUBCUT Q24H Morphine Med 11/09/19 15:36 Active 2 mg IVPUSH Q3H PRN Ondansetron [Zofran] Med 11/09/19 15:35 Active 4 mg IVPUSH Q4H PRN Sodium Chloride 0.9% [Normal Saline] 1,000 ml Med 11/09/19 13:45 Active IV ASDIRECTED cefTRIAXone [Rocephin in Dextrose,Iso-Osm 1 GM/50 ML] 1 Med 11/10/19 12:00 Active gm Premix Bag 1 bag IV Q24H Blood Culture x2 Reflex Set [OM.PC] Stat Oth 11/09/19 12:01 Ordered Sequential Compression Device [OM.PC] Per Unit Routine Oth 11/09/19 17:49 Ordered Resuscitation Status Routine Resus Stat 11/09/19 17:49 Ordered Medication Orders Acetaminophen (Tylenol) 650 mg PO Q6H PRN PRN Reason: Pain Last Admin: 11/09/19 13:54 Dose: 650 mg Documented by: ABBY Sodium Chloride (Normal Saline) 1,000 mls @ 150 mls/hr IV ASDIRECTED JALEESA Last Admin: 11/09/19 13:50 Dose: 150 mls/hr Documented by: ABBY Ceftriaxone Sodium/Dextrose 1 (gm/ Premix) 50 mls @ 100 mls/hr IV Q24H JALEESA Morphine Sulfate (Morphine) 2 mg IVPUSH Q3H PRN PRN Reason: Pain Last Admin: 11/09/19 16:34 Dose: 2 mg Documented by: ABBY Ondansetron HCl (Zofran) 4 mg IVPUSH Q4H PRN PRN Reason: Nausea/Vomiting Assessment/Plan Comment:: 29 yo female admitted for pyelonephritis with sepsis. Her lactic acid has normalized with fluid resuscitation. We will treat with Rocephin. Cultures are pending.
[2019-11-09] MEDS: Enoxaparin 40 MG/0.4 ML Syringe SUBCUT SCH (18:22)
[2019-11-09] MEDS: Ondansetron 4 MG/2 ML SDV IVPUSH PRN (18:25)
[2019-11-10] MEDS: Morphine 2 MG/ML SYRINGE IVPUSH PRN ×3 (00:07→09:12)
[2019-11-10] MEDS: Sodium Chloride 0.9% 1,000 ML IV SCH ×3 (04:41→21:03)
[2019-11-10 06:36] LABS: BLOOD UREA NITROGEN,BUN 3 mg/dL (7.0-18.0); CARBON DIOXIDE,CO2 27.2 mmol/L (21.0-32.0); CHLORIDE,CL 106 mmol/L (98-107); GLUCOSE RANDOM 105 mg/dL (74-106); POTASSIUM,K 3.2 mmol/L (3.5-5.1); SODIUM,NA 142 mmol/L (136-145)
[2019-11-10] MEDS: Acetaminophen 325 MG Tab PO PRN ×2 (08:08→14:14)
[2019-11-10] MEDS: Ondansetron 4 MG/2 ML SDV IVPUSH PRN (09:20)
[2019-11-10] MEDS ORDERED: Potassium Chloride 20 MEQ Tab.ER PO ONE (10:01)
[2019-11-10] MEDS: Acetaminophen/oxyCODONE 325-5 MG Tab PO PRN ×3 (10:57→21:20)
[2019-11-10] MEDS: cefTRIAXone 1 GM in Premix Bag 1 BAG IV SCH (11:17)
--- NOTE | 2019-11-10 11:36 | PCM.PN ---
- General Info Date of Service: 11/10/19 Functional Status: Reports: Ambulating - Review of Systems General: Reports: Weakness HEENT: Reports: Headaches Pulmonary: Reports: No Symptoms Cardiovascular: Reports: No Symptoms Gastrointestinal: Reports: Nausea, Vomiting Genitourinary: Reports: Flank Pain (right side), Other (pressure with voiding) - Patient Data Vitals - Most Recent: Last Vital Signs Temp 97.4 F 11/10/19 11:23 Pulse 67 11/10/19 11:23 Resp 17 11/10/19 11:23 BP 98/62 11/10/19 11:23 Pulse Ox 95 11/10/19 11:23 Weight - Most Recent: 170 lb 9.6 oz I&O - Last 24 Hours: Intake & Output 11/09/19 11/10/19 11/10/19 22:59 06:59 14:59 Intake Total 972 2788 Output Total 751 1500 Balance 221 1288 Lab Results Last 24 Hours: Laboratory Results - last 24 hr 11/09/19 11/09/19 11/09/19 Range/Units 11:42 11:42 11:42 WBC 12.04 H (4.0-11.0) K/uL RBC 3.88 L (4.30-5.90) M/uL Hgb 10.8 L (12.0-16.0) g/dL Hct 34.4 L (36.0-46.0) % MCV 88.7 (80.0-98.0) fL MCH 27.8 (27.0-32.0) pg MCHC 31.4 (31.0-37.0) g/dL RDW Std Deviation 45.9 (28.0-62.0) fl RDW Coeff of Dorothy 14 (11.0-15.0) % Plt Count 240 (150-400) K/uL MPV 11.10 (7.40-12.00) fL Neut % (Auto) 75.0 (48.0-80.0) % Lymph % (Auto) 12.5 L (16.0-40.0) % Mckenzie % (Auto) 11.6 (0.0-15.0) % Eos % (Auto) 0.7 (0.0-7.0) % Baso % (Auto) 0.2 (0.0-1.5) % Neut # (Auto) 9.0 H (1.4-5.7) K/uL Lymph # (Auto) 1.5 (0.6-2.4) K/uL Mckenzie # (Auto) 1.4 H (0.0-0.8) K/uL Eos # (Auto) 0.1 (0.0-0.7) K/uL Baso # (Auto) 0.0 (0.0-0.1) K/uL Nucleated RBC % 0.0 /100WBC Nucleated RBCs # 0 K/uL Lactate 3.7 H* (0.20-2.00) mmol/L Sodium 139 (136-145) mmol/L Potassium 3.4 L (3.5-5.1) mmol/L Chloride 103 (98-107) mmol/L Carbon Dioxide 28.0 (21.0-32.0) mmol/L BUN 5 L (7.0-18.0) mg/dL Creatinine 0.7 (0.6-1.0) mg/dL Est Cr Clr Drug Dosing 95.48 mL/min Estimated GFR (MDRD) > 60.0 ml/min Glucose 88 (74-106) mg/dL Calcium 7.3 L (8.5-10.1) mg/dL Total Bilirubin 0.7 (0.2-1.0) mg/dL AST 108 H (15-37) IU/L ALT 179 H (14-63) IU/L Alkaline Phosphatase 91 (46-116) U/L Total Protein 5.5 L (6.4-8.2) g/dL Albumin 2.6 L (3.4-5.0) g/dL Globulin 2.9 (2.6-4.0) g/dL Albumin/Globulin Ratio 0.9 (0.9-1.6) Urine Color Urine Appearance Urine pH (5.0-8.0) Ur Specific [place] (1.001-1.035) Urine Protein (NEGATIVE) mg/dL Urine Glucose (UA) (NEGATIVE) mg/dL Urine Ketones (NEGATIVE) mg/dL Urine Occult Blood (NEGATIVE) Urine Nitrite (NEGATIVE) Urine Bilirubin (NEGATIVE) Urine Urobilinogen (<2.0) EU/dL Ur Leukocyte Esterase (NEGATIVE) Urine RBC (0-2/HPF) Urine WBC (0-5/HPF) Ur Epithelial Cells (NONE-FEW) Urine Bacteria (NEGATIVE) COVID-19 ([facility]) (NEGATIVE) 11/09/19 11/09/19 11/09/19 Range/Units 11:57 13:30 16:50 WBC (4.0-11.0) K/uL RBC (4.30-5.90) M/uL Hgb (12.0-16.0) g/dL Hct (36.0-46.0) % MCV (80.0-98.0) fL MCH (27.0-32.0) pg MCHC (31.0-37.0) g/dL RDW Std Deviation (28.0-62.0) fl RDW Coeff of Dorothy (11.0-15.0) % Plt Count (150-400) K/uL MPV (7.40-12.00) fL Neut % (Auto) (48.0-80.0) % Lymph % (Auto) (16.0-40.0) % Mckenzie % (Auto) (0.0-15.0) % Eos % (Auto) (0.0-7.0) % Baso % (Auto) (0.0-1.5) % Neut # (Auto) (1.4-5.7) K/uL Lymph # (Auto) (0.6-2.4) K/uL Mckenzie # (Auto) (0.0-0.8) K/uL Eos # (Auto) (0.0-0.7) K/uL Baso # (Auto) (0.0-0.1) K/uL Nucleated RBC % /100WBC Nucleated RBCs # K/uL Lactate 0.6 (0.20-2.00) mmol/L Sodium (136-145) mmol/L Potassium (3.5-5.1) mmol/L Chloride (98-107) mmol/L Carbon Dioxide (21.0-32.0) mmol/L BUN (7.0-18.0) mg/dL Creatinine (0.6-1.0) mg/dL Est Cr Clr Drug Dosing mL/min Estimated GFR (MDRD) ml/min Glucose (74-106) mg/dL Calcium (8.5-10.1) mg/dL Total Bilirubin (0.2-1.0) mg/dL AST (15-37) IU/L ALT (14-63) IU/L Alkaline Phosphatase (46-116) U/L Total Protein (6.4-8.2) g/dL Albumin (3.4-5.0) g/dL Globulin (2.6-4.0) g/dL Albumin/Globulin Ratio (0.9-1.6) Urine Color YELLOW Urine Appearance HAZY Urine pH 7.0 (5.0-8.0) Ur Specific [place] 1.010 (1.001-1.035) Urine Protein NEGATIVE (NEGATIVE) mg/dL Urine Glucose (UA) NEGATIVE (NEGATIVE) mg/dL Urine Ketones NEGATIVE (NEGATIVE) mg/dL Urine Occult Blood TRACE-INTACT H (NEGATIVE) Urine Nitrite NEGATIVE (NEGATIVE) Urine Bilirubin NEGATIVE (NEGATIVE) Urine Urobilinogen 4.0 H (<2.0) EU/dL Ur Leukocyte Esterase TRACE H (NEGATIVE) Urine RBC 3-7 (0-2/HPF) Urine WBC 3-6 (0-5/HPF) Ur Epithelial Cells MODERATE (NONE-FEW) Urine Bacteria FEW (NEGATIVE) COVID-19 ([facility]) NEGATIVE (NEGATIVE) 11/10/19 11/10/19 Range/Units 05:30 05:30 WBC 7.64 (4.0-11.0) K/uL RBC 3.84 L (4.30-5.90) M/uL Hgb 10.6 L (12.0-16.0) g/dL Hct 33.7 L (36.0-46.0) % MCV 87.8 (80.0-98.0) fL MCH 27.6 (27.0-32.0) pg MCHC 31.5 (31.0-37.0) g/dL RDW Std Deviation 45.7 (28.0-62.0) fl RDW Coeff of Dorothy 14 (11.0-15.0) % Plt Count 258 (150-400) K/uL MPV 12.40 H (7.40-12.00) fL Neut % (Auto) 56.3 (48.0-80.0) % Lymph % (Auto) 29.7 (16.0-40.0) % Mckenzie % (Auto) 12.0 (0.0-15.0) % Eos % (Auto) 1.6 (0.0-7.0) % Baso % (Auto) 0.4 (0.0-1.5) % Neut # (Auto) 4.3 (1.4-5.7) K/uL Lymph # (Auto) 2.3 (0.6-2.4) K/uL Mckenzie # (Auto) 0.9 H (0.0-0.8) K/uL Eos # (Auto) 0.1 (0.0-0.7) K/uL Baso # (Auto) 0.0 (0.0-0.1) K/uL Nucleated RBC % 0.0 /100WBC Nucleated RBCs # 0 K/uL Lactate (0.20-2.00) mmol/L Sodium 142 (136-145) mmol/L Potassium 3.2 L (3.5-5.1) mmol/L Chloride 106 (98-107) mmol/L Carbon Dioxide 27.2 (21.0-32.0) mmol/L BUN 3 L (7.0-18.0) mg/dL Creatinine 0.6 (0.6-1.0) mg/dL Est Cr Clr Drug Dosing 111.39 mL/min Estimated GFR (MDRD) > 60.0 ml/min Glucose 105 (74-106) mg/dL Calcium 7.7 L (8.5-10.1) mg/dL Total Bilirubin (0.2-1.0) mg/dL AST (15-37) IU/L ALT (14-63) IU/L Alkaline Phosphatase (46-116) U/L Total Protein (6.4-8.2) g/dL Albumin (3.4-5.0) g/dL Globulin (2.6-4.0) g/dL Albumin/Globulin Ratio (0.9-1.6) Urine Color Urine Appearance Urine pH (5.0-8.0) Ur Specific [place] (1.001-1.035) Urine Protein (NEGATIVE) mg/dL Urine Glucose (UA) (NEGATIVE) mg/dL Urine Ketones (NEGATIVE) mg/dL Urine Occult Blood (NEGATIVE) Urine Nitrite (NEGATIVE) Urine Bilirubin (NEGATIVE) Urine Urobilinogen (<2.0) EU/dL Ur Leukocyte Esterase (NEGATIVE) Urine RBC (0-2/HPF) Urine WBC (0-5/HPF) Ur Epithelial Cells (NONE-FEW) Urine Bacteria (NEGATIVE) COVID-19 ([facility]) (NEGATIVE) Michael Results Last 24 Hours: Microbiology 11/09/19 13:30 Urine Culture - Preliminary Urine, Clean Catch NO GROWTH AFTER 1 DAY 11/09/19 11:42 Anaerobic Blood Culture - Final Blood - Venous Med Orders - Current: Current Medications Acetaminophen (Tylenol) 650 mg PO Q6H PRN PRN Reason: Pain Last Admin: 11/10/19 08:08 Dose: 650 mg Documented by: Enoxaparin Sodium (Lovenox) 40 mg SUBCUT Q24H [facility] Last Admin: 11/09/19 18:22 Dose: 40 mg Documented by: Sodium Chloride (Normal Saline) 1,000 mls @ 150 mls/hr IV ASDIRECTED [facility] Last Admin: 11/10/19 11:26 Dose: 150 mls/hr Documented by: Ceftriaxone Sodium/Dextrose 1 (gm/ Premix) 50 mls @ 100 mls/hr IV Q24H [facility] Last Admin: 11/10/19 11:17 Dose: 100 mls/hr Documented by: Ondansetron HCl (Zofran) 4 mg IVPUSH Q4H PRN PRN Reason: Nausea/Vomiting Last Admin: 11/10/19 09:20 Dose: 4 mg Documented by: Oxycodone/Acetaminophen (Percocet 325-5 Mg) 1 tab PO Q4H PRN PRN Reason: Pain (moderate 4-6) Last Admin: 11/10/19 10:57 Dose: 1 tab Documented by: Discontinued Medications Hydromorphone HCl (Dilaudid) 1 mg IVPUSH ONETIME ONE Stop: 11/09/19 12:29 Last Admin: 11/09/19 12:32 Dose: 1 mg Documented by: Sodium Chloride (Normal Saline) 1,000 mls @ 999 mls/hr IV STAT ONE Stop: 11/09/19 11:12 Last Admin: 11/09/19 10:41 Dose: 999 mls/hr Documented by: Sodium Chloride (Normal Saline) 1,000 mls @ 999 mls/hr IV STAT ONE Stop: 11/09/19 13:00 Last Admin: 11/09/19 12:29 Dose: 999 mls/hr Documented by: Ceftriaxone Sodium/Dextrose 1 (gm/ Premix) 50 mls @ 100 mls/hr IV ONETIME ONE Stop: 11/09/19 12:35 Last Admin: 11/09/19 12:29 Dose: 100 mls/hr Documented by: Iopamidol (Isovue Multipack-370 (76%)) 100 ml IVPUSH ONETIME ONE Stop: 11/09/19 11:25 Last Admin: 11/09/19 11:24 Dose: 100 ml Documented by: Morphine Sulfate (Morphine) 4 mg IVPUSH ONETIME ONE Stop: 11/09/19 10:38 Last Admin: 11/09/19 10:41 Dose: 4 mg Documented by: Morphine Sulfate (Morphine) 2 mg IVPUSH Q3H PRN PRN Reason: Pain Last Admin: 11/10/19 09:12 Dose: 2 mg Documented by: Potassium Chloride (Klor-Con M20) 40 meq PO ONETIME ONE Stop: 11/10/19 10:02 Last Admin: 11/10/19 10:59 Dose: 40 meq Documented by: - Exam General: Alert, Oriented, Cooperative HEENT: EOMI Neck: Trachea Midline Lungs: Clear to Auscultation Cardiovascular: Regular Rate, Regular Rhythm GI/Abdominal Exam: Soft, No Distention, Other (RLQ abdominal pain. ) Back Exam: Normal Inspection, CVA Tenderness (R) Skin: Warm, Dry Sepsis Event Note - Evaluation Sepsis Screening Result: No Definite Risk - Focused Exam Vital Signs: Vital Signs Temp Pulse Resp BP Pulse Ox 11/10/19 11:23 97.4 F 67 17 98/62 95 11/10/19 07:47 98.2 F 74 16 122/71 95 11/10/19 04:00 98 F 75 16 118/65 94 L 11/10/19 00:11 98.1 F 70 17 120/70 94 L - Problem List Review Problem List Initiated/Reviewed/Updated: Yes - Assessment Assessment:: 1.) Pyelonephritis 2. Hypokalemia - Plan Plan:: 1. 29 yo female currently admitted for pyelonephritis. Patient is receiving NS 150ml/hr and Rocephin 1g Q24hrs. Will monitor AM labs for increased WBC and monitor patient for signs of increasing infection (fever/chills, hypotension, increased R CVA tenderness elevated WBC.) Patient morphine was D/C and she was started on Percocet 325mg/5mg Q4hr PRN. 2. Patient was given 40meq PO potassium for hypokalemia, 3.2. Will repeat AM BMP and correct potassium if necessary.
[2019-11-10] MEDS: Enoxaparin 40 MG/0.4 ML Syringe SUBCUT SCH (17:39)
[2019-11-11] MEDS: Ondansetron 4 MG/2 ML SDV IVPUSH PRN (00:25)
[2019-11-11] MEDS: Acetaminophen 325 MG Tab PO PRN (00:25)
[2019-11-11] MEDS: Sodium Chloride 0.9% 1,000 ML IV SCH (04:41)
[2019-11-11 05:58] LABS: BLOOD UREA NITROGEN,BUN 4 mg/dL (7.0-18.0); CARBON DIOXIDE,CO2 25.9 mmol/L (21.0-32.0); CHLORIDE,CL 109 mmol/L (98-107); GLUCOSE RANDOM 103 mg/dL (74-106); POTASSIUM,K 3.6 mmol/L (3.5-5.1); SODIUM,NA 142 mmol/L (136-145)
[2019-11-11] MEDS: cefTRIAXone 1 GM in Premix Bag 1 BAG IV SCH (11:31)
[2019-11-11 14:00] VITALS: BP 121/81; PULSE 73
--- NOTE | 2019-11-11 20:44 | PCM.DCSUM1 ---
Discharge Summary - Hospital Course Free Text/Narrative:: 29yr old female admitted to the medical floor for 3 days due to pyelonephritis. Patient was previously seen in the ED on 11-07 where she stated that she was having right sided flank pain and fever. She did not want to be admitted and was discharged home with ciprofloxacin. Patient returned to the ED again on 11-08 for worsening of her symptoms including increased nausea and vomiting. Pt did have CT imaging which reported right sided pyelonephritis. Pt does have a history of heroin abuse. Upon discharge patient stated that she felt much better. She no longer had flank pain, fever, nausea or vomiting. Diagnosis: Stroke: No - Discharge Data Discharge Date: 11/11/19 Discharge Disposition: Home, Self-Care 01 Condition: Good - Referral to Home Health Primary Care Physician: Donna Botello NP - Discharge Diagnosis/Problem(s) (1) Acute pyelonephritis SNOMED Code(s): 39315912 ICD Code: N10 - ACUTE PYELONEPHRITIS Status: Acute - Patient Instructions Diet: Usual Diet as Tolerated - Discharge Plan *PRESCRIPTION DRUG MONITORING PROGRAM REVIEWED*: No *COPY OF PRESCRIPTION DRUG MONITORING REPORT IN PATIENT YUNIEL: No Prescriptions/Med Rec: Sulfamethoxazole/Trimethoprim [Bactrim Ds Tablet] 1 each PO BID 7 Days #14 tablet Home Medications: Home Meds Sulfamethoxazole/Trimethoprim [Bactrim Ds Tablet] 1 each PO BID 7 Days #14 tablet 11/11/19 [Rx] Patient Handouts: Pyelonephritis, Adult, [id number], Sulfamethoxazole; Trimethoprim, SMX-TMP tablets Referrals: Donna Botello NP [Primary Care Provider] - Sandrita Parker CNM, NP [Mid-] - 11/14/19 2:00 pm (Please arrive 15 minutes early with your identification, insurance cards and your own facemask.) - Discharge Summary/Plan Comment DC Time >30 min.: No - General Info Date of Service: 11/11/19 Functional Status: Reports: Pain Controlled, Tolerating Diet - Review of Systems General: Denies: Fever, Weakness, Fatigue, Malaise, Chills HEENT: Denies: Headaches Pulmonary: Reports: No Symptoms Cardiovascular: Reports: No Symptoms Gastrointestinal: Reports: No Symptoms Genitourinary: Reports: No Symptoms Neurological: Denies: Confusion, Dizziness, Headache - Patient Data Vitals - Most Recent: Last Vital Signs Temp 97.8 F 11/11/19 12:00 Pulse 73 11/11/19 12:00 Resp 16 11/11/19 12:00 BP 121/81 11/11/19 12:00 Pulse Ox 96 11/11/19 12:00 Weight - Most Recent: 170 lb 9.6 oz I&O - Last 24 hours: Intake & Output 11/11/19 11/11/19 11/11/19 06:59 14:59 22:59 Intake Total 350 500 Output Total 850 530 Balance -500 -30 Lab Results - Last 24 hrs: Laboratory Results - last 24 hr 11/11/19 11/11/19 Range/Units 04:52 04:52 WBC 7.50 (4.0-11.0) K/uL RBC 3.74 L (4.30-5.90) M/uL Hgb 10.4 L (12.0-16.0) g/dL Hct 33.0 L (36.0-46.0) % MCV 88.2 (80.0-98.0) fL MCH 27.8 (27.0-32.0) pg MCHC 31.5 (31.0-37.0) g/dL RDW Std Deviation 46.9 (28.0-62.0) fl RDW Coeff of Dorothy 14 (11.0-15.0) % Plt Count 267 (150-400) K/uL MPV 12.40 H (7.40-12.00) fL Neut % (Auto) 68.9 (48.0-80.0) % Lymph % (Auto) 21.5 (16.0-40.0) % [place] % (Auto) 7.3 (0.0-15.0) % Eos % (Auto) 1.9 (0.0-7.0) % Baso % (Auto) 0.4 (0.0-1.5) % Neut # (Auto) 5.2 (1.4-5.7) K/uL Lymph # (Auto) 1.6 (0.6-2.4) K/uL [place] # (Auto) 0.6 (0.0-0.8) K/uL Eos # (Auto) 0.1 (0.0-0.7) K/uL Baso # (Auto) 0.0 (0.0-0.1) K/uL Nucleated RBC % 0.0 /100WBC Nucleated RBCs # 0 K/uL Sodium 142 (136-145) mmol/L Potassium 3.6 (3.5-5.1) mmol/L Chloride 109 H (98-107) mmol/L Carbon Dioxide 25.9 (21.0-32.0) mmol/L BUN 4 L (7.0-18.0) mg/dL Creatinine 0.5 L (0.6-1.0) mg/dL Est Cr Clr Drug Dosing 133.67 mL/min Estimated GFR (MDRD) > 60.0 ml/min Glucose 103 (74-106) mg/dL Calcium 7.9 L (8.5-10.1) mg/dL BLOSSOM Results - Last 24 hrs: Microbiology 11/09/19 12:27 Aerobic Blood Culture - Preliminary Blood - Venous - Lab Draw NO GROWTH AFTER 2 DAYS Anaerobic Blood Culture - Preliminary NO GROWTH AFTER 2 DAYS 11/09/19 11:42 Aerobic Blood Culture - Preliminary Blood - Venous NO GROWTH AFTER 2 DAYS Anaerobic Blood Culture - Final 11/09/19 13:30 Urine Culture - Final Urine, Clean Catch No Growth Med Orders - Current: Current Medications Discontinued Medications Acetaminophen (Tylenol) 650 mg PO Q6H PRN PRN Reason: Pain Last Admin: 11/11/19 00:25 Dose: 650 mg Documented by: Enoxaparin Sodium (Lovenox) 40 mg SUBCUT Q24H [facility] Last Admin: 11/10/19 17:39 Dose: 40 mg Documented by: Hydromorphone HCl (Dilaudid) 1 mg IVPUSH ONETIME ONE Stop: 11/09/19 12:29 Last Admin: 11/09/19 12:32 Dose: 1 mg Documented by: Sodium Chloride (Normal Saline) 1,000 mls @ 999 mls/hr IV STAT ONE Stop: 11/09/19 11:12 Last Admin: 11/09/19 10:41 Dose: 999 mls/hr Documented by: Sodium Chloride (Normal Saline) 1,000 mls @ 999 mls/hr IV STAT ONE Stop: 11/09/19 13:00 Last Admin: 11/09/19 12:29 Dose: 999 mls/hr Documented by: Ceftriaxone Sodium/Dextrose 1 (gm/ Premix) 50 mls @ 100 mls/hr IV ONETIME ONE Stop: 11/09/19 12:35 Last Admin: 11/09/19 12:29 Dose: 100 mls/hr Documented by: Sodium Chloride (Normal Saline) 1,000 mls @ 150 mls/hr IV ASDIRECTED [facility] Last Admin: 11/11/19 04:41 Dose: 150 mls/hr Documented by: Ceftriaxone Sodium/Dextrose 1 (gm/ Premix) 50 mls @ 100 mls/hr IV Q24H [facility] Last Admin: 11/11/19 11:31 Dose: 100 mls/hr Documented by: Iopamidol (Isovue Multipack-370 (76%)) 100 ml IVPUSH ONETIME ONE Stop: 11/09/19 11:25 Last Admin: 11/09/19 11:24 Dose: 100 ml Documented by: Morphine Sulfate (Morphine) 4 mg IVPUSH ONETIME ONE Stop: 11/09/19 10:38 Last Admin: 11/09/19 10:41 Dose: 4 mg Documented by: Morphine Sulfate (Morphine) 2 mg IVPUSH Q3H PRN PRN Reason: Pain Last Admin: 11/10/19 09:12 Dose: 2 mg Documented by: Ondansetron HCl (Zofran) 4 mg IVPUSH Q4H PRN PRN Reason: Nausea/Vomiting Last Admin: 11/11/19 00:25 Dose: 4 mg Documented by: Oxycodone/Acetaminophen (Percocet 325-5 Mg) 1 tab PO Q4H PRN PRN Reason: Pain (moderate 4-6) Last Admin: 11/10/19 21:20 Dose: 1 tab Documented by: Potassium Chloride (Klor-Con M20) 40 meq PO ONETIME ONE Stop: 11/10/19 10:02 Last Admin: 11/10/19 10:59 Dose: 40 meq Documented by: - Exam General: Reports: Alert, Oriented, Cooperative HEENT: Reports: Pupils Reactive, EOMI Neck: Reports: Trachea Midline Lungs: Reports: Clear to Auscultation, Normal Respiratory Effort Cardiovascular: Reports: Regular Rate, Regular Rhythm GI/Abdominal Exam: Soft, Non-Tender, No Distention Back Exam: Reports: Normal Inspection Extremities: Normal Range of Motion, No Pedal Edema Skin: Reports: Warm, Dry Psy/Mental Status: Reports: Alert, Normal Affect, Normal Mood
== END 2019-11-11 13:25 | disposition home or self-care (01) | DRG 872 ==
LOC: MW.ED 10:11 → MW.MS 12:14
PROVIDERS: ADMIT Internal Medicine; ATTEND Internal Medicine
DX: A41.9 Sepsis, unspecified organism (principal); N10 Acute pyelonephritis; E87.6 Hypokalemia; F11.10 Opioid abuse, uncomplicated; J45.909 Unspecified asthma, uncomplicated; K21.9 Gastro-esophageal reflux disease without esophagitis; F41.9 Anxiety disorder, unspecified; F32.9 Major depressive disorder, single episode, unspecified; F43.10 Post-traumatic stress disorder, unspecified; F17.210 Nicotine dependence, cigarettes, uncomplicated; Z79.899 Other long term (current) drug therapy; Z90.49 Acquired absence of other specified parts of digestive tract
CPT/HCPCS: 36415; 74177; 74177-26; 80048; 80053; 81001; 83605; 85025; 87040; 87086; 96361; 96374; 99284; 99285-25; A9270-GY; J0696; J1170; J1650; J2270; J2405; J7030; Q9967; U0002

== ENCOUNTER 2021-02-25 17:46 | Emergency (ER) | payer SELFPAY ==
[2021-02-25] MEDS ORDERED: Sodium Chloride 0.9% 1,000 ML IV ONE (17:53)
--- NOTE | 2021-02-25 17:59 | EDM.PDOCBH ---
ED HPI GENERAL MEDICAL PROBLEM - General Chief Complaint: Drug or Alcohol Abuse Stated Complaint: EMS Time Seen by Provider: 02/25/21 17:52 Source of Information: Reports: Patient History Limitations: Reports: No Limitations - History of Present Illness INITIAL COMMENTS - FREE TEXT/NARRATIVE: HISTORY AND PHYSICAL: History of present illness: Patient is a 31-year-old female who presents to the emergency room with complaints of unintentional drug overdose. Patient states that she recently got out of [facility] and had abstained from using heroin (drug of choice) since being released. Today she bought some oxycodone off the street. She broke part of the tablet off and smoked it in the bathroom. Her mom states she went to check on her in the bathroom and found her crouched down and lethargic. Mom states she did a few chest compressions and she became arousable. EMS states on their arrival she was alert although drowsy, they gave her 4 mg of Narcan intranasally. Immediately patient was more alert and talking. Patient states she believes the oxycodone was laced with fentanyl. This was not in attempt of harming herself. She states she does have a history of depression, has been out of her medications since being discharged from the [facility] (approx 2 weeks). States mainly she is upset at herself for using drugs again. Patient denies any fever, chills, headache, change in vision, syncope or near syncope. Denies any chest pain, back pain, shortness of breath or cough. Denies any GI or symptoms. Patient has been eating and drinking appropriately. No recent travel or sick contacts. Patient denies taking any other medications (prescribed or [id number]), drugs or alcohol today. Review of systems: As per history of present illness and below otherwise all systems reviewed and negative. Past medical history: As per history of present illness and as reviewed below otherwise noncontributory. Surgical history: As per history of present illness and as reviewed below otherwise noncontributory. Social history: See social history for further information Family history: As per history of present illness and as reviewed below otherwise noncontrib utory. Physical exam: General: Well developed and well nourished 31-year-old female. Alert and orientated x 3. Nontoxic in appearance and in no acute distress. Vital signs are stable and have been reviewed by me. Nursing notes were reviewed. HEENT: Atraumatic, normocephalic, pupils equal and reactive bilaterally, negative for conjunctival pallor or scleral icterus, mucous membranes moist, TMs normal bilaterally, throat clear, neck supple, nontender, trachea midline. No drooling or trismus noted. No meningeal signs. No hot potato voice noted. Lungs: Clear to auscultation bilaterally. No wheezes, rales, or rhonchi. Chest nontender. Normal work of breathing, no accessory muscles used. Heart: S1S2, regular rate and rhythm without overt murmur, gallops, or rubs. No JVD. No peripheral edema Abdomen: Soft, nondistended, nontender. Normoactive bowel sounds. Negative for masses or costovertebral tenderness. Skin: Intact, warm, dry. No lesions or rashes noted. Hematologic: No petechiae or purpra. Mucosa appropriate color and normal nail bed color and refill. Extremities: Atraumatic, moves all extremities per self without difficulty or deficits, negative for cords or calf pain. Neurovascular unremarkable. Neuro: Awake, alert, oriented. Cranial nerves II through XII unremarkable. Cerebellum unremarkable. Motor and sensory unremarkable throughout. Exam nonfocal. Psychiatric: Mood and affect are appropriate. Normal thought process. Answering questions appropriately. Please note that the patient was seen and evaluated during the 2019 SARS-CoV-2 novel coronavirus pandemic period. Community viral transmission is ongoing at time of this encounter and the emergency department is operating under pandemic response procedures. Medical Decision Making: Patient is a 31-year-old female who presented by EMS with unintentional overdose. She states she bought some oxycodone off the street and when she broke a trunk off to smoke to get high she was found unresponsive. Patient's mother said she was lethargic and did a few compressions on her chest, although did not check for pulse and the patient was awake. Upon EMS arrival they did give her 4 mg of Narcan intranasal which improved her arousability. Upon patient's arrival to the ER she is alert, oriented, answering questions appropriately and is agreeable to monitoring over the next few hours. Patient is adamant that she has no thoughts of self-harm and this was not intentional. Patient does have a leukocytosis and urinary tract infection. She has no abdominal pain, flank pain or fevers. She states she has noted some dysuria after reviewing her results. We will treat with Macrobid. Reassessment at the time of disposition demonstrates that the patient is in no acute distress. Patient has been alert, oriented, answering questions appropriately for the 2+ hours she has been here. Her mom has arrived to the emergency room to take her home. Will prescribe Narcan in case there are any future events as she does valadez ve a longstanding history of drug abuse. We discussed [facility] for her depression medication and interest in counseling for drug addiction. Again patient has no thoughts of self-harm or suicide. The patient is stable for discharge, counseling was provided and we discussed in great detail signs and symptoms that would prompt them to return to the Emergency Department. Medication, follow up and supportive care measures were reviewed and discussed. Voices understanding and is agreeable to plan of care. Denies any further questions or concerns at this time. Diagnostics: CBC, CMP, acetaminophen, salicylate, UA, urine , urine drug screen Therapeutics: IV fluid Prescription: Narcan Impression: Unintentional drug overdose UTI Plan: 1. You were evaluated today on an emergent basis. Your lab work showed a UTI, otherwise normal. Script sent to [facility] for [place]. 2. I have prescribed Narcan which you can have available in the event that this should happen in the future. It would be prudent to have this in the case of an emergency in the future. You can alternate Tylenol and ibuprofen as needed for pain and fever management. 3. We encourage you to follow up with your primary care provider and/or recommended specialist in the next few days for re-evaluation and further care/management. [facility] does have treatment available for addiction. Their office is open Sunday through Sunday at 8 AM. 4. If your symptoms should worsen, new symptoms develop or any of the signs and symptoms we discussed should arise please return to the emergency room or call 911 (if needed). Definitive disposition and diagnosis as appropriate pending reevaluation and review of above. 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" Respiratory History: Reports: Asthma Gastrointestinal History: Reports: GERD Genitourinary History: Reports: None [employer] History: Reports: Musculoskeletal History: Reports: None Neurological History: Reports: None Psychiatric History: Reports: Anxiety, Depression, PTSD, Suicidal Ideation Endocrine/Metabolic History: Reports: None Hematologic History: Reports: None Immunologic History: Reports: None Oncologic (Cancer) History: Reports: None Dermatologic History: Reports: None - Infectious Disease History Infectious Disease History: Reports: None - Past Surgical History GI Surgical History: Reports: Cholecystectomy Social & Family History - Family History Family Medical History: No Pertinent Family History - Caffeine Use Caffeine Use: Reports: Coffee, Soda - Living Situation & Occupation Living situation: Reports: Single Occupation: Unemployed ED ROS GENERAL - Review of Systems Review Of Systems: Comprehensive ROS is negative, except as noted in HPI. ED EXAM, BEHAVIORAL HEALTH - Physical Exam Exam: See Below (See dictation) COURSE, BEHAVIORAL HEALTH COMP - Course Vital Signs: Last Vital Signs Temp 97.8 F 02/25/21 18:59 Pulse 113 H 02/25/21 18:59 Resp 18 02/25/21 18:59 BP 122/76 02/25/21 18:59 Pulse Ox 100 02/25/21 18:59 Orders, Labs, Meds: Laboratory Tests 02/25/21 02/25/21 02/25/21 Range/Units 18:08 18:08 18:34 WBC 13.92 H (4.0-11.0) K/uL RBC 4.61 (4.30-5.90) M/uL Hgb 14.0 (12.0-16.0) g/dL Hct 42.9 (36.0-46.0) % MCV 93.1 (80.0-98.0) fL MCH 30.4 (27.0-32.0) pg MCHC 32.6 (31.0-37.0) g/dL RDW Std Deviation 48.4 (28.0-62.0) fl RDW Coeff of Dorothy 14 (11.0-15.0) % Plt Count 238 (150-400) K/uL MPV 11.40 (7.40-12.00) fL Neut % (Auto) 79.7 (48.0-80.0) % Lymph % (Auto) 15.2 L (16.0-40.0) % Clay % (Auto) 4.3 (0.0-15.0) % Eos % (Auto) 0.6 (0.0-7.0) % Baso % (Auto) 0.2 (0.0-1.5) % Neut # (Auto) 11.1 H (1.4-5.7) K/uL Lymph # (Auto) 2.1 (0.6-2.4) K/uL Clay # (Auto) 0.6 (0.0-0.8) K/uL Eos # (Auto) 0.1 (0.0-0.7) K/uL Baso # (Auto) 0.0 (0.0-0.1) K/uL Nucleated RBC % 0.0 /100WBC Nucleated RBCs # 0 K/uL Sodium 141 (136-145) mmol/L Potassium 4.5 (3.5-5.1) mmol/L Chloride 104 (98-107) mmol/L Carbon Dioxide 29.4 (21.0-32.0) mmol/L BUN 16 (7.0-18.0) mg/dL Creatinine 0.8 (0.6-1.0) mg/dL Est Cr Clr Drug Dosing 85.83 mL/min Estimated GFR (MDRD) > 60.0 ml/min Glucose 168 H (74-106) mg/dL Calcium 9.0 (8.5-10.1) mg/dL Total Bilirubin 0.3 (0.2-1.0) mg/dL AST 18 (15-37) IU/L ALT 32 (14-63) IU/L Alkaline Phosphatase 76 (46-116) U/L Total Protein 7.8 (6.4-8.2) g/dL Albumin 3.9 (3.4-5.0) g/dL Globulin 3.9 (2.6-4.0) g/dL Albumin/Globulin Ratio 1.0 (0.9-1.6) Urine Color YELLOW Urine Appearance CLOUDY Urine pH 6.5 (5.0-8.0) Ur Specific Ambler 1.025 (1.001-1.035) Urine Protein 30 H (NEGATIVE) mg/dL Urine Glucose (UA) NEGATIVE (NEGATIVE) mg/dL Urine Ketones NEGATIVE (NEGATIVE) mg/dL Urine Occult Blood NEGATIVE (NEGATIVE) Urine Nitrite NEGATIVE (NEGATIVE) Urine Bilirubin NEGATIVE (NEGATIVE) Urine Urobilinogen 0.2 (<2.0) EU/dL Ur Leukocyte Esterase NEGATIVE (NEGATIVE) Urine RBC 0-3 (0-2/HPF) Urine WBC 1-3 (0-5/HPF) Ur Epithelial Cells FEW (NONE-FEW) Amorphous Sediment MODERATE (NEGATIVE) Urine Bacteria 1+ H (NEGATIVE) Urine Mucus LIGHT (NONE-MOD) Urine HCG, Qual (NEGATIVE) Salicylates 2.9 (0-20) mg/dL Urine Opiates Screen (NEGATIVE) Ur Oxycodone Screen (NEGATIVE) Urine Methadone Screen (NEGATIVE) Acetaminophen <2.0 ug/mL Ur Barbiturates Screen (NEGATIVE) Ur Phencyclidine Scrn (NEGATIVE) Ur Amphetamine Screen (NEGATIVE) U Methamphetamines Scrn (NEGATIVE) U Benzodiazepines Scrn (NEGATIVE) U Cocaine Metab Screen (NEGATIVE) U Marijuana (THC) Screen (NEGATIVE) 02/25/21 02/25/21 Range/Units 18:34 18:34 WBC (4.0-11.0) K/uL RBC (4.30-5.90) M/uL Hgb (12.0-16.0) g/dL Hct (36.0-46.0) % MCV (80.0-98.0) fL MCH (27.0-32.0) pg MCHC (31.0-37.0) g/dL RDW Std Deviation (28.0-62.0) fl RDW Coeff of Dorothy (11.0-15.0) % Plt Count (150-400) K/uL MPV (7.40-12.00) fL Neut % (Auto) (48.0-80.0) % Lymph % (Auto) (16.0-40.0) % Clay % (Auto) (0.0-15.0) % Eos % (Auto) (0.0-7.0) % Baso % (Auto) (0.0-1.5) % Neut # (Auto) (1.4-5.7) K/uL Lymph # (Auto) (0.6-2.4) K/uL Clay # (Auto) (0.0-0.8) K/uL Eos # (Auto) (0.0-0.7) K/uL Baso # (Auto) (0.0-0.1) K/uL Nucleated RBC % /100WBC Nucleated RBCs # K/uL Sodium (136-145) mmol/L Potassium (3.5-5.1) mmol/L Chloride (98-107) mmol/L Carbon Dioxide (21.0-32.0) mmol/L BUN (7.0-18.0) mg/dL Creatinine (0.6-1.0) mg/dL Est Cr Clr Drug Dosing mL/min Estimated GFR (MDRD) ml/min Glucose (74-106) mg/dL Calcium (8.5-10.1) mg/dL Total Bilirubin (0.2-1.0) mg/dL AST (15-37) IU/L ALT (14-63) IU/L Alkaline Phosphatase (46-116) U/L Total Protein (6.4-8.2) g/dL Albumin (3.4-5.0) g/dL Globulin (2.6-4.0) g/dL Albumin/Globulin Ratio (0.9-1.6) Urine Color Urine Appearance Urine pH (5.0-8.0) Ur Specific Ambler (1.001-1.035) Urine Protein (NEGATIVE) mg/dL Urine Glucose (UA) (NEGATIVE) mg/dL Urine Ketones (NEGATIVE) mg/dL Urine Occult Blood (NEGATIVE) Urine Nitrite (NEGATIVE) Urine Bilirubin (NEGATIVE) Urine Urobilinogen (<2.0) EU/dL Ur Leukocyte Esterase (NEGATIVE) Urine RBC (0-2/HPF) Urine WBC (0-5/HPF) Ur Epithelial Cells (NONE-FEW) Amorphous Sediment (NEGATIVE) Urine Bacteria (NEGATIVE) Urine Mucus (NONE-MOD) Urine HCG, Qual NEGATIVE (NEGATIVE) Salicylates (0-20) mg/dL Urine Opiates Screen NEGATIVE (NEGATIVE) Ur Oxycodone Screen NEGATIVE (NEGATIVE) Urine Methadone Screen NEGATIVE (NEGATIVE) Acetaminophen ug/mL Ur Barbiturates Screen NEGATIVE (NEGATIVE) Ur Phencyclidine Scrn NEGATIVE (NEGATIVE) Ur Amphetamine Screen NEGATIVE (NEGATIVE) U Methamphetamines Scrn NEGATIVE (NEGATIVE) U Benzodiazepines Scrn NEGATIVE (NEGATIVE) U Cocaine Metab Screen NEGATIVE (NEGATIVE) U Marijuana (THC) Screen NEGATIVE (NEGATIVE) Medications Discontinued Medications Generic Name Dose Route Start Last Admin Trade Name Freq PRN Reason Stop Dose Admin Sodium Chloride 1,000 mls @ 999 mls/hr 02/25/21 17:53 02/25/21 18:15 Normal Saline IV 02/25/21 18:53 999 mls/hr STAT ONE Administration Nitrofurantoin Macrocrystals 100 mg 02/25/21 19:34 02/25/21 19:39 Nitrofurantoin Monohydrate/Macrocrystalline 100 Mg Cap PO 02/25/21 19:35 100 mg ONETIME ONE Administration Departure - Departure Time of Disposition: 19:45 Disposition: Home, Self-Care 01 Clinical Impression: Overdose, drug Qualifiers: Encounter type: initial encounter Injury intent: accidental or unintentional Qualified Code(s): T50.901A - Poisoning by unspecified drugs, medicaments and biological substances, accidental (unintentional), initial encounter UTI (urinary tract infection) Qualifiers: Urinary tract infection type: site unspecified Hematuria presence: without hematuria Qualified Code(s): N39.0 - Urinary tract infection, site not specified - Discharge Information Prescriptions: Nitrofurantoin Monohyd/M-Cryst [Macrobid 100 mg Capsule] 100 mg PO BID 5 Days #10 capsule Naloxone HCl [Narcan] 4 mg NS ASDIRECTED PRN #1 ml PRN Reason: overdose Instructions: Accidental Drug Poisoning, Adult Referrals: PCP,None [Primary Care Provider] - Forms: ED Department Discharge Additional Instructions: The following information is given to patients seen in the emergency department who are being discharged to home. This information is to outline your options for follow-up care. We provide all patients seen in our emergency department with a follow-up referral. The need for follow-up, as well as the timing and circumstances, are variable depending upon the specifics of your emergency department visit. If you don't have a primary care physician on staff, we will provide you with a referral. We always advise you to contact your personal physician following an emergency department visit to inform them of the circumstance of the visit and for follow-up with them and/or the need for any referrals to a consulting specialist. The emergency department will also refer you to a specialist when appropriate. This referral assures that you have the opportunity for follow-up care with a specialist. All of these measure are taken in an effort to provide you with optimal care, which includes your follow-up. Under all circumstances we always encourage you to contact your private physician who remains a resource for coordinating your care. When calling for follow-up care, please make the office aware that this follow-up is from your recent emergency room visit. If for any reason you are refused follow-up, please contact the [facility] Emergency Department at and asked to speak to the emergency department charge nurse. [facility] [address] [place] [id number] [address] Thank you for choosing the [facility] emergency department in [place] for your medical needs today. It was a pleasure caring for you. Today you were seen in the emergency department for drug overdose Your prescription was electronically sent to: [place] [facility] 1. You were evaluated today on an emergent basis. Your lab work showed a UTI, otherwise normal. Script sent to [facility] for antibiotics. 2. I have prescribed Narcan which you can have available in the event that this should happen in the future. It would be prudent to have this in the case of an emergency in the future. You can alternate Tylenol and ibuprofen as needed for pain and fever management. 3. We encourage you to follow up with your primary care provider and/or re commended specialist in the next few days for re-evaluation and further care/management. [facility] does have treatment available for addiction. Their office is open Sunday through Sunday at 8 AM. 4. If your symptoms should worsen, new symptoms develop or any of the signs and symptoms we discussed should arise please return to the emergency room or call 911 (if needed). Sepsis Event Note (ED) - Focused Exam Vital Signs: Vital Signs Temp Pulse Resp BP Pulse Ox 02/25/21 18:59 97.8 F 113 H 18 122/76 100 02/25/21 18:02 97.5 F 117 H 16 120/83 99 02/25/21 17:56 97.2 F 114 H 16 120/83 98
[2021-02-25 18:42] LABS: ACETAMINOPHEN <2.0 ug/mL; BLOOD UREA NITROGEN,BUN 16 mg/dL (7.0-18.0); CARBON DIOXIDE,CO2 29.4 mmol/L (21.0-32.0); CHLORIDE,CL 104 mmol/L (98-107); GLUCOSE RANDOM 168 mg/dL (74-106); POTASSIUM,K 4.5 mmol/L (3.5-5.1); SODIUM,NA 141 mmol/L (136-145)
[2021-02-25] MEDS ORDERED: Nitrofurantoin Monohydrate/Macrocrystalline 100 MG Cap PO ONE (19:34)
[2021-02-25 19:45] VITALS: BP 110/74; PULSE 105
== END 2021-02-25 19:46 | disposition home or self-care (01) ==
LOC: MW.ED 17:46
DX: T40.2X1A Poisoning by other opioids, accidental (unintentional), initial encounter (principal); N39.0 Urinary tract infection, site not specified
CPT/HCPCS: 36415; 80053; 80143; 80179; 80305; 81001; 81025; 85025; 99284; A9270; J7030

== ENCOUNTER 2021-08-18 16:40 | Emergency (ER) | payer MEDICAID ==
[2021-08-18] MEDS ORDERED: Sodium Chloride 0.9% 1,000 ML IV ONE (16:58)
[2021-08-18] MEDS ORDERED: cefTRIAXone 1 GM in Sodium Chloride 0.9% 50 ML IV ONE (17:43)
[2021-08-18 18:11] LABS: BLOOD UREA NITROGEN,BUN 10 mg/dL (7.0-18.0); CARBON DIOXIDE,CO2 23.4 mmol/L (21.0-32.0); CHLORIDE,CL 102 mmol/L (98-107); GLUCOSE RANDOM 88 mg/dL (74-106); POTASSIUM,K 3.8 mmol/L (3.5-5.1); SODIUM,NA 136 mmol/L (136-145)
[2021-08-18 18:39] VITALS: BP 128/74; PULSE 78
== END 2021-08-18 18:39 | disposition home or self-care (01) ==
LOC: MW.ED 16:40
DX: N39.0 Urinary tract infection, site not specified (principal); Z20.822 Contact with and (suspected) exposure to COVID-19
CPT/HCPCS: 36415; 80053; 81001; 83605; 84702; 85025; 87040; 87086; 87635; 96365; 99284; J0696; J7030; 99283; U0002

== ENCOUNTER 2021-10-24 11:55 | Observation (INO) | payer MEDICAID ==
[2021-10-24] MEDS ORDERED: Sodium Chloride 0.9% 10 ML Syringe FLUSH PRN (12:45)
[2021-10-24] MEDS ORDERED: Sodium Chloride 0.9% 20 ML SDV IV PRN (12:45)
[2021-10-24] MEDS ORDERED: Sodium Chloride 0.9% 2.5 ML Syringe FLUSH PRN (12:45)
[2021-10-24 13:32] LABS: CORONAVIRUS COVID-19 NAA NEGATIVE (NEGATIVE); INFLUENZA A NAA NEGATIVE (NEGATIVE); INFLUENZA B NAA NEGATIVE (NEGATIVE)
[2021-10-24] MEDS ORDERED: Ondansetron 4 MG Tab.DIS PO ONE (13:57)
[2021-10-24] MEDS: Ondansetron 4 MG/2 ML SDV IVPUSH SCH ×3 (15:38→21:36)
[2021-10-24] MEDS: Lactated Ringers 1,000 ML IV SCH ×2 (15:50→23:10)
[2021-10-24] MEDS ORDERED: Lactated Ringers 1,000 ML IV SCH (17:30)
[2021-10-24] MEDS: ceFAZolin 1 GM in Premix Bag 1 BAG IV SCH (18:15)
[2021-10-24 19:06] LABS: POTASSIUM,K 3.5 mmol/L (3.5-5.1)
[2021-10-24] MEDS: Promethazine 25 MG/ML SDV IM PRN (20:16)
[2021-10-25] MEDS: ceFAZolin 1 GM in Premix Bag 1 BAG IV SCH ×3 (02:20→17:59)
[2021-10-25] MEDS: Ondansetron 4 MG/2 ML SDV IVPUSH SCH ×6 (07:00→20:46)
[2021-10-25] MEDS: Promethazine 25 MG/ML SDV IM PRN ×2 (16:09→20:49)
[2021-10-26] MEDS: Ondansetron 4 MG/2 ML SDV IVPUSH SCH ×2 (00:43→05:07)
[2021-10-26] MEDS: Lactated Ringers 1,000 ML IV SCH (00:45)
[2021-10-26] MEDS: ceFAZolin 1 GM in Premix Bag 1 BAG IV SCH ×2 (01:48→10:05)
[2021-10-26 07:06] LABS: LIPASE 132 U/L (73-393)
[2021-10-26 09:20] VITALS: BP 114/72; PULSE 74
== END 2021-10-26 11:05 | disposition home or self-care (01) ==
LOC: MW.OBCHECK 11:55 → MW.OB 11:56 → MW.OBCHECK 17:46 → MW.OB 17:47
PROVIDERS: ADMIT Obstetrics & Gynecology; ATTEND Obstetrics & Gynecology
DX: O21.2 Late vomiting of pregnancy (principal); O99.512 Diseases of the respiratory system complicating pregnancy, second trimester; J45.909 Unspecified asthma, uncomplicated; O99.342 Other mental disorders complicating pregnancy, second trimester; O99.612 Diseases of the digestive system complicating pregnancy, second trimester; K21.9 Gastro-esophageal reflux disease without esophagitis; Z79.899 Other long term (current) drug therapy; Z79.83 Long term (current) use of bisphosphonates; Z90.49 Acquired absence of other specified parts of digestive tract; Z98.890 Other specified postprocedural states; Z20.822 Contact with and (suspected) exposure to COVID-19; Z3A.27 27 weeks gestation of pregnancy
CPT/HCPCS: 0240U; 36415; 59025; 80053; 81001; 82150; 83690; 85025; 85027; 96361; 96365; 96366; 96372; 96375; 96376; A9270; G0378; J0690; J2405; J2550; J7120; 36410

== ENCOUNTER 2021-10-27 08:41 | Emergency (ER) | payer MEDICAID ==
[2021-10-27] MEDS ORDERED: Lactated Ringers 1,000 ML IV ONE (09:31)
[2021-10-27] MEDS ORDERED: Ondansetron 4 MG/2 ML SDV IVPUSH ONE (09:31)
[2021-10-27 09:44] VITALS: BP 116/57; PULSE 64
== END 2021-10-27 09:30 | disposition left against medical advice (07) ==
LOC: MW.ED 08:41
DX: O21.9 Vomiting of pregnancy, unspecified (principal); Z3A.28 28 weeks gestation of pregnancy; Z79.899 Other long term (current) drug therapy; Z90.49 Acquired absence of other specified parts of digestive tract
CPT/HCPCS: 99283

== ENCOUNTER 2021-11-08 15:43 | Observation (INO) | payer MEDICAID ==
[2021-11-08] MEDS ORDERED: Sodium Chloride 0.9% 20 ML SDV IV PRN (17:04)
[2021-11-08] MEDS ORDERED: Sodium Chloride 0.9% 2.5 ML Syringe FLUSH PRN (17:04)
[2021-11-08] MEDS ORDERED: Sodium Chloride 0.9% 10 ML Syringe FLUSH PRN (17:04)
[2021-11-08] MEDS: Lactated Ringers 1,000 ML IV SCH ×2 (18:17→21:34)
[2021-11-08] MEDS ORDERED: Ondansetron 4 MG/2 ML SDV IVPUSH PRN (22:29)
[2021-11-08] MEDS ORDERED: Promethazine 25 MG/ML SDV IM ONE (23:04)
[2021-11-09] MEDS: Ondansetron 4 MG/2 ML SDV IVPUSH PRN ×2 (01:06→04:51)
[2021-11-09] MEDS: Calcium Carbonate 500 MG Tab.Chew PO PRN ×3 (01:07→07:01)
[2021-11-09] MEDS: Lactated Ringers 1,000 ML IV SCH ×3 (01:11→10:26)
[2021-11-09 06:03] LABS: CARBON DIOXIDE,CO2 21.5 mmol/L (21.0-32.0); POTASSIUM,K 3.3 mmol/L (3.5-5.1)
== END 2021-11-09 11:10 | disposition home or self-care (01) ==
LOC: MW.OB 15:43 → MW.OBCHECK 15:43 → MW.OB 22:15
PROVIDERS: ADMIT Obstetrics & Gynecology; ATTEND Obstetrics & Gynecology
DX: O21.2 Late vomiting of pregnancy (principal); O99.891 Other specified diseases and conditions complicating pregnancy; R10.9 Unspecified abdominal pain; Z3A.27 27 weeks gestation of pregnancy
CPT/HCPCS: 36415; 59025; 80053; 80305; 81003; 85025; 96361; 96372; 96374; 96376; A9270; G0378; J2405; J2550; J7120

== ENCOUNTER 2022-01-12 06:07 | Inpatient (IN) | payer MEDICAID ==
[2022-01-12] MEDS: Nicotine 14 MG/24 Hr Patch TRDERM SCH (08:22)
[2022-01-12] MEDS ORDERED: Carboprost Tromethamine 250 MCG/1 ML Amp IM PRN (09:16)
[2022-01-12] MEDS ORDERED: Ondansetron 4 MG/2 ML SDV IVPUSH PRN (09:16)
[2022-01-12] MEDS ORDERED: Tranexamic Acid 1,000 MG in Sodium Chloride 0.9% 100 ML IV PRN (09:16)
[2022-01-12] MEDS ORDERED: Sodium Chloride 0.9% 10 ML Syringe FLUSH PRN (09:16)
[2022-01-12] MEDS ORDERED: Sodium Chloride 0.9% 20 ML SDV IV PRN (09:16)
[2022-01-12] MEDS ORDERED: Lidocaine 1% 50 ML MDV INJECT PRN (09:16)
[2022-01-12] MEDS ORDERED: Methylergonovine 0.2 MG/1 ML Amp IM PRN (09:16)
[2022-01-12] MEDS ORDERED: Sodium Chloride 0.9% 2.5 ML Syringe FLUSH PRN (09:16)
[2022-01-12] MEDS ORDERED: Butorphanol 1 MG/ML SDV IVPUSH PRN (09:16)
[2022-01-12] MEDS ORDERED: Water For Irrigation,Sterile 1,000 ML Container IRR PRN (09:16)
[2022-01-12] MEDS ORDERED: Misoprostol 200 MCG Tab PO PRN (09:16)
[2022-01-12] MEDS ORDERED: Oxytocin/0.9 % Sodium Chloride 30 UNIT/500 ML BAG IV SCH (09:30)
[2022-01-12] MEDS: Lactated Ringers 1,000 ML IV SCH ×2 (09:35→11:06)
[2022-01-12] MEDS ORDERED: Ropivacaine/PF 400 MG/200 ML PCA ONE (11:02)
[2022-01-12] MEDS ORDERED: ePHEDrine 50 MG/ML SDV IVPUSH PRN (11:17)
[2022-01-12] MEDS ORDERED: Lidocaine 2% 5 ML SDV ONE (11:30)
[2022-01-12] MEDS ORDERED: Dexmedetomidine 200 MCG/2 ML SDV ONE (11:30)
[2022-01-12] MEDS ORDERED: Phenylephrine HCl In 0.9% NaCl 1 MG/10 ML Vial IVPUSH SCH (11:30)
[2022-01-12] MEDS ORDERED: Ropivacaine HCl/PF 400 MG in Premix Bag 1 BAG EPIDUR SCH (11:30)
[2022-01-12] MEDS ORDERED: Witch Hazel Medicated Pads 40/Jar TOP PRN (14:40)
[2022-01-12] MEDS ORDERED: Bisacodyl 10 MG Supp RECTAL PRN (14:40)
[2022-01-12] MEDS ORDERED: Docusate Sodium 100 MG Cap PO PRN (14:40)
[2022-01-12] MEDS ORDERED: Acetaminophen 500 MG Tab PO PRN (14:40)
[2022-01-12] MEDS ORDERED: Benzocaine/Menthol 20%-0.5% Spray 78 GM Cannister TOP PRN (14:40)
[2022-01-12] MEDS ORDERED: Ibuprofen 400 MG Tab PO PRN (14:40)
[2022-01-12] MEDS ORDERED: Lanolin 100% Cream 7 GM Tube TOP PRN (14:40)
[2022-01-12] MEDS: Ibuprofen 800 MG Tab PO PRN (18:15)
[2022-01-12] MEDS: Acetaminophen 500 MG Tab PO PRN ×2 (18:17→22:00)
[2022-01-13] MEDS: Ibuprofen 800 MG Tab PO PRN ×2 (04:02→09:49)
[2022-01-13] MEDS: Nicotine 14 MG/24 Hr Patch TRDERM SCH (09:46)
[2022-01-13] MEDS: Acetaminophen 500 MG Tab PO PRN (09:49)
[2022-01-13 16:10] VITALS: BP 137/82; PULSE 71
== END 2022-01-13 17:52 | disposition home or self-care (01) | DRG 807 ==
LOC: MW.OBCHECK 06:07 → MW.OB 06:09 → MW.OBCHECK 09:18 → OBSVTOIN 13:30 → MW.OB 18:45
PROVIDERS: ADMIT Obstetrics & Gynecology Obstetrics; ATTEND Obstetrics & Gynecology Obstetrics
PROC: 10E0XZZ Delivery of Products of Conception, External Approach (ICD-10-PCS; principal; 2022-01-12)
PROC: 3E0R3BZ Introduction of Anesthetic Agent into Spinal Canal, Percutaneous Approach (ICD-10-PCS; 2022-01-12)
PROC: 00HU33Z Insertion of Infusion Device into Spinal Canal, Percutaneous Approach (ICD-10-PCS; 2022-01-12)
DX: O99.52 Diseases of the respiratory system complicating childbirth (principal); Z37.0 Single live birth; Z3A.39 39 weeks gestation of pregnancy; O99.344 Other mental disorders complicating childbirth; F41.8 Other specified anxiety disorders; Z20.822 Contact with and (suspected) exposure to COVID-19
CPT/HCPCS: 01967; 36415; 51702; 59025; 59409; 80305-QW; 81003; 85014; 85018; 85027; 86592; 86850; 86900; 86901; A9270-GY; J2590; J2795; J7120; U0002

== ENCOUNTER 2022-01-26 05:30 | Inpatient (IN) | payer MEDICAID ==
[2022-01-26] MEDS ORDERED: Ketorolac 30 MG/ML SDV IVPUSH ONE (05:50)
[2022-01-26] MEDS ORDERED: Ondansetron 4 MG/2 ML SDV ONE (05:50)
[2022-01-26] MEDS ORDERED: Morphine 4 MG/ML Syringe IVPUSH ONE (05:50)
[2022-01-26] MEDS ORDERED: Ondansetron 4 MG/2 ML SDV IVPUSH ONE (05:51)
[2022-01-26] MEDS ORDERED: Lactated Ringers 1,000 ML IV ONE (05:58)
[2022-01-26 06:19] LABS: CARBON DIOXIDE,CO2 25.1 mmol/L (21.0-32.0); POTASSIUM,K 3.5 mmol/L (3.5-5.1)
[2022-01-26] MEDS ORDERED: Promethazine 25 MG/ML SDV IM ONE (06:40)
[2022-01-26] MEDS ORDERED: Metoclopramide 10 MG/2 ML SDV IVPUSH STA (08:04)
[2022-01-26] MEDS ORDERED: Haloperidol Lactate 5 MG/ML SDV IM ONE (10:01)
[2022-01-26] MEDS ORDERED: Sodium Chloride 0.9% 2.5 ML Syringe FLUSH PRN (13:00)
[2022-01-26] MEDS ORDERED: Ketorolac 30 MG/ML SDV IVPUSH PRN (13:00)
[2022-01-26] MEDS ORDERED: Acetaminophen 325 MG Tab PO PRN (13:00)
[2022-01-26] MEDS ORDERED: Morphine 2 MG/ML SYRINGE IVPUSH PRN (13:00)
[2022-01-26] MEDS ORDERED: Sodium Chloride 0.9% 10 ML Syringe FLUSH PRN (13:00)
[2022-01-26] MEDS ORDERED: Promethazine 25 MG/ML SDV IM PRN (13:02)
[2022-01-26] MEDS ORDERED: Pantoprazole 40 MG in Sodium Chloride 0.9% 10 ML IVPUSH SCH (13:30)
[2022-01-26] MEDS ORDERED: Lactated Ringers 1,000 ML IV SCH (14:00)
[2022-01-26] MEDS: Lactated Ringers 1,000 ML IV SCH ×2 (14:22→21:13)
[2022-01-26] MEDS: Piperacillin/Tazobactam 3.375 GM in Sodium Chloride 0.9% 50 ML IV SCH ×2 (14:38→18:06)
[2022-01-26] MEDS: Ondansetron 4 MG/2 ML SDV IVPUSH PRN ×2 (16:09→21:12)
[2022-01-26] MEDS ORDERED: diphenhydrAMINE 25 MG Cap PO PRN (21:46)
[2022-01-27] MEDS: Piperacillin/Tazobactam 3.375 GM in Sodium Chloride 0.9% 50 ML IV SCH ×3 (00:36→13:09)
[2022-01-27] MEDS: Lactated Ringers 1,000 ML IV SCH ×2 (05:10→13:09)
[2022-01-27 06:19] LABS: CARBON DIOXIDE,CO2 26.7 mmol/L (21.0-32.0); POTASSIUM,K 3.7 mmol/L (3.5-5.1)
[2022-01-27] MEDS ORDERED: Morphine 4 MG/ML Syringe IVPUSH PRN (06:30)
[2022-01-27] MEDS ORDERED: Magnesium Sulfate/Water 2 GM in Premix Bag 1 BAG IV ONE (08:10)
[2022-01-27 11:12] VITALS: BP 121/68; PULSE 81
== END 2022-01-27 12:45 | disposition home or self-care (01) | DRG 690 ==
LOC: MW.ED 05:30 → MW.MS 12:34
PROVIDERS: ADMIT Surgery; ATTEND Internal Medicine
DX: R11.2 Nausea with vomiting, unspecified (principal); R10.9 Unspecified abdominal pain; N10 Acute pyelonephritis; F17.210 Nicotine dependence, cigarettes, uncomplicated; F41.9 Anxiety disorder, unspecified; Z79.899 Other long term (current) drug therapy; F32.A Depression, unspecified; F15.10 Other stimulant abuse, uncomplicated; F19.11 Other psychoactive substance abuse, in remission; Z20.822 Contact with and (suspected) exposure to COVID-19; J45.909 Unspecified asthma, uncomplicated; K21.9 Gastro-esophageal reflux disease without esophagitis; F43.10 Post-traumatic stress disorder, unspecified; Z85.41 Personal history of malignant neoplasm of cervix uteri; Z86.19 Personal history of other infectious and parasitic diseases; Z90.49 Acquired absence of other specified parts of digestive tract
CPT/HCPCS: 36415; 74176; 80053; 81001; 81025; 85025; 87086; 93005; J1630; J1885; J2270; J2405; J2550; J2765; J7120; 80048; 83605; 83735; 87040; 96361; 96372; 96374; 96375; 99285-25; C9113; J2543; J3475; J3490; U0002

== ENCOUNTER 2022-05-14 22:29 | Emergency (ER) | payer OTHER, MEDICAID ==
[2022-05-14 22:42] VITALS: BP 148/86; PULSE 133
== END 2022-05-14 22:44 | disposition home or self-care (01) ==
LOC: MW.ED 22:29
DX: Z04.1 Encounter for examination and observation following transport accident (principal)
CPT/HCPCS: 99283

== ENCOUNTER 2022-07-05 08:05 | Emergency (ER) | payer MEDICAID ==
[2022-07-05] MEDS ORDERED: Ketorolac 30 MG/ML SDV IVPUSH ONE (08:28)
[2022-07-05] MEDS ORDERED: Ondansetron 4 MG/2 ML SDV IVPUSH ONE (08:28)
[2022-07-05] MEDS ORDERED: Sodium Chloride 0.9% 1,000 ML IV ONE (08:58)
[2022-07-05 10:16] LABS: CARBON DIOXIDE,CO2 26.1 mmol/L (21.0-32.0); POTASSIUM,K 3.8 mmol/L (3.5-5.1)
[2022-07-05 10:33] VITALS: BP 119/64; PULSE 60
== END 2022-07-05 10:32 | disposition home or self-care (01) ==
LOC: MW.ED 08:05
DX: R10.31 Right lower quadrant pain (principal); Z90.49 Acquired absence of other specified parts of digestive tract
CPT/HCPCS: 36415; 74176; 80053; 81003; 81025; 85025; 96361; 96374; 96375; 99284; J1885; J2405; J7030

== ENCOUNTER 2022-07-20 04:31 | Emergency (ER) | payer MEDICAID ==
[2022-07-20] MEDS ORDERED: Sodium Chloride 0.9% 2.5 ML Syringe FLUSH PRN (05:22)
[2022-07-20] MEDS ORDERED: Sodium Chloride 0.9% 10 ML Syringe FLUSH PRN (05:22)
[2022-07-20] MEDS ORDERED: Sodium Chloride 0.9% 1,000 ML IV ONE ×2 (05:22→06:36)
[2022-07-20 06:35] LABS: BASOPHILS PERCENT AUTO 0.1 % (0.0-1.5); EOSINOPHILS PERCENT AUTO 0.1 % (0.0-7.0); HEMATOCRIT 35.4 % (36.0-46.0); HEMOGLOBIN 11.4 g/dL (12.0-16.0); LYMPHOCYTES ABSOLUTE AUTO 1.7 K/uL (0.6-2.4); LYMPHOCYTES PERCENT AUTO 10.2 % (16.0-40.0); MEAN CORPUSCULAR HEMOGLOBIN 27.1 pg (27.0-32.0); MEAN CORPUSCULAR HGB CONC 32.2 g/dL (31.0-37.0); MEAN CORPUSCULAR VOLUME 84.3 fL (80.0-98.0); MONOCYTES ABSOLUTE AUTO 0.6 K/uL (0.0-0.8); MONOCYTES PERCENT AUTO 3.6 % (0.0-15.0); NEUTROPHILS ABSOLUTE AUTO 14.3 K/uL (1.4-5.7); NRBC ABSOLUTE 0 K/uL; PLATELET COUNT,PLT 260 K/uL (150-400); WHITE BLOOD CELL COUNT,WBC 16.58 K/uL (4.0-11.0)
[2022-07-20] MEDS ORDERED: Ondansetron 4 MG/2 ML SDV IVPUSH ONE (06:57)
[2022-07-20 07:03] LABS: ALBUMIN 3.1 g/dL (3.4-5.0); BILIRUBIN TOTAL 0.8 mg/dL (0.2-1.0); CALCIUM 7.7 mg/dL (8.5-10.1); CARBON DIOXIDE,CO2 25.1 mmol/L (21.0-32.0); CREATININE 0.5 mg/dL (0.6-1.0); EST CRCL DRUG DOSING (CG) 136.09 mL/min; POTASSIUM,K 3.9 mmol/L (3.5-5.1); PROTEIN TOTAL,TP 6.3 g/dL (6.4-8.2)
[2022-07-20 07:38] LABS: APPEARANCE,URINE CLEAR; COLOR,URINE YELLOW; GLUCOSE,URINE NEGATIVE (NEGATIVE); KETONES,URINE 15 mg/dL (NEGATIVE); LEUKOCYTE ESTERASE,URINE TRACE (NEGATIVE); NITRITE,URINE NEGATIVE (NEGATIVE); OCCULT BLOOD,URINE NEGATIVE (NEGATIVE); PROTEIN,URINE NEGATIVE (NEGATIVE); UROBILINOGEN,URINE >=8.0 EU/dL (<2.0)
[2022-07-20 07:40] LABS: BILIRUBIN,URINE SMALL (NEGATIVE)
[2022-07-20] MEDS ORDERED: Morphine 4 MG/ML Syringe IVPUSH PRN (07:43)
[2022-07-20 07:50] LABS: BACTERIA,URINE RARE (NEGATIVE); EPITHELIAL CELLS,URINE MODERATE (NONE-FEW); RBC,URINE NONE SEEN (0-2/HPF); WBC,URINE 0-5 (0-5/HPF)
[2022-07-20 07:51] LABS: MUCUS,URINE MODERATE (NONE-MOD)
[2022-07-20 08:52] LABS: CORONAVIRUS COVID-19 NAA NEGATIVE (NEGATIVE); INFLUENZA A NAA NEGATIVE (NEGATIVE); INFLUENZA B NAA NEGATIVE (NEGATIVE)
[2022-07-20 12:08] VITALS: BP 114/63; PULSE 56
== END 2022-07-20 12:26 | disposition home or self-care (01) ==
LOC: MW.ED 04:31
DX: R55 Syncope and collapse (principal); J45.909 Unspecified asthma, uncomplicated; D72.829 Elevated white blood cell count, unspecified; Z20.822 Contact with and (suspected) exposure to COVID-19
CPT/HCPCS: 0240U; 36415; 76705; 80053; 81001; 81025; 83605; 83690; 85025; 85379; 87040; 87086; 93005; 96361; 96374; 96375; 99284; J2270; J2405; J3490; J7030; 93010

== ENCOUNTER 2022-07-21 06:19 | Observation (INO) | payer MEDICAID ==
[2022-07-21] MEDS ORDERED: Sodium Chloride 0.9% 1,000 ML IV ONE (06:28)
[2022-07-21] MEDS ORDERED: Sodium Chloride 0.9% 2.5 ML Syringe FLUSH PRN ×2 (06:28→09:59)
[2022-07-21] MEDS ORDERED: Sodium Chloride 0.9% 10 ML Syringe FLUSH PRN ×2 (06:28→09:59)
[2022-07-21] MEDS ORDERED: Ondansetron 4 MG/2 ML SDV IVPUSH ONE (06:28)
[2022-07-21] MEDS ORDERED: fentaNYL 50 MCG/ML SDV IVPUSH ONE (06:28)
[2022-07-21 06:49] LABS: BASOPHILS PERCENT AUTO 0.2 % (0.0-1.5); EOSINOPHILS ABSOLUTE AUTO 0.1 K/uL (0.0-0.7); EOSINOPHILS PERCENT AUTO 0.7 % (0.0-7.0); HEMATOCRIT 34.8 % (36.0-46.0); HEMOGLOBIN 11.3 g/dL (12.0-16.0); LYMPHOCYTES ABSOLUTE AUTO 2.1 K/uL (0.6-2.4); LYMPHOCYTES PERCENT AUTO 14.6 % (16.0-40.0); MEAN CORPUSCULAR HEMOGLOBIN 27.3 pg (27.0-32.0); MEAN CORPUSCULAR HGB CONC 32.5 g/dL (31.0-37.0); MEAN CORPUSCULAR VOLUME 84.1 fL (80.0-98.0); MONOCYTES ABSOLUTE AUTO 0.7 K/uL (0.0-0.8); MONOCYTES PERCENT AUTO 4.9 % (0.0-15.0); NEUTROPHILS ABSOLUTE AUTO 11.6 K/uL (1.4-5.7); NEUTROPHILS PERCENT AUTO 79.6 % (48.0-80.0); NRBC ABSOLUTE 0 K/uL; PLATELET COUNT,PLT 256 K/uL (150-400); RED BLOOD CELL COUNT 4.14 M/uL (4.30-5.90); WHITE BLOOD CELL COUNT,WBC 14.52 K/uL (4.0-11.0)
[2022-07-21 07:14] LABS: ALANINE AMINOTRANSFERASE,ALT 33 IU/L (14-63); ALBUMIN 3.2 g/dL (3.4-5.0); ALKALINE PHOSPHATASE 58 U/L (46-116); ASPARTATE AMNIOTRANSFERASE,AST 20 IU/L (15-37); BILIRUBIN TOTAL 0.6 mg/dL (0.2-1.0); BLOOD UREA NITROGEN,BUN 7 mg/dL (7.0-18.0); CALCIUM 8.1 mg/dL (8.5-10.1); CARBON DIOXIDE,CO2 25.3 mmol/L (21.0-32.0); CHLORIDE,CL 105 mmol/L (98-107); CREATININE 0.6 mg/dL (0.6-1.0); GLUCOSE RANDOM 143 mg/dL (74-106); LACTIC ACID 0.8 mmol/L (0.4-2.0); LIPASE 108 U/L (73-393); MAGNESIUM 1.8 mg/dL (1.8-2.4); POTASSIUM,K 3.6 mmol/L (3.5-5.1); PROTEIN TOTAL,TP 6.5 g/dL (6.4-8.2); SODIUM,NA 141 mmol/L (136-145)
[2022-07-21 07:15] LABS: ESTIMATED GFR 124 mL/min (>60)
[2022-07-21] MEDS ORDERED: Iopamidol 755 MG/ML 500 ML Multipack Bottle IVPUSH ONE (07:39)
[2022-07-21] MEDS ORDERED: Prochlorperazine 10 MG/2 ML SDV IVPUSH ONE (08:26)
[2022-07-21] MEDS ORDERED: Acetaminophen 650 MG in Premix Bag 1 BAG IV ONE (08:56)
[2022-07-21] MEDS ORDERED: Pantoprazole 40 MG in Sodium Chloride 0.9% 10 ML IVPUSH ONE (10:00)
[2022-07-21] MEDS: Ketorolac 30 MG/ML SDV IVPUSH PRN ×3 (11:23→23:55)
[2022-07-21] MEDS: Lactated Ringers 1,000 ML IV SCH ×2 (11:23→19:59)
[2022-07-21] MEDS: Promethazine 25 MG/ML SDV IM PRN ×2 (11:34→18:09)
[2022-07-21] MEDS ORDERED: NALOXONE HCL PO SCH (14:00)
[2022-07-21] MEDS ORDERED: BUPRENORPHINE HCL PO SCH (14:00)
[2022-07-21 15:04] LABS: APPEARANCE,URINE CLEAR; BILIRUBIN,URINE NEGATIVE (NEGATIVE); COLOR,URINE YELLOW; GLUCOSE,URINE NEGATIVE (NEGATIVE); KETONES,URINE 15 mg/dL (NEGATIVE); LEUKOCYTE ESTERASE,URINE NEGATIVE (NEGATIVE); NITRITE,URINE NEGATIVE (NEGATIVE); OCCULT BLOOD,URINE NEGATIVE (NEGATIVE); PROTEIN,URINE NEGATIVE (NEGATIVE)
[2022-07-21 15:10] LABS: AMPHETAMINES SCREEN, URINE NEGATIVE (CUTOFF=500); BARBITURATE SCREEN,URINE NEGATIVE (CUTOFF=200); BENZODIAZEPINES SCREEN,URINE PRESUMPTIVE POSITIVE (CUTOFF=150); BUPRENORPHINE SCREEN,URINE PRESUMPTIVE POSITIVE (CUTOFF=10); METHADONE SCREEN, URINE NEGATIVE (CUTOFF=200); METHAMPHETAMINES SCREEN, URINE NEGATIVE (CUTOFF=500); OXYCODONE SCREEN,URINE NEGATIVE (CUT0FF=100); PCP SCREEN,URINE NEGATIVE (CUTOFF=25); PROPOXYPHENE SCREEN,URINE NEGATIVE (CUTOFF=300); THC SCREEN,URINE 20 NG/ML PRESUMPTIVE POSITIVE (CUTOFF=50)
[2022-07-21] MEDS ORDERED: Ondansetron 4 MG/2 ML SDV IVPUSH PRN (21:36)
[2022-07-21] MEDS: BUPRENORPHINE HCL PO SCH (23:55)
[2022-07-21] MEDS: NALOXONE HCL PO SCH (23:55)
[2022-07-22] MEDS: Lactated Ringers 1,000 ML IV SCH (03:11)
[2022-07-22 06:20] LABS: BASOPHILS PERCENT AUTO 0.4 % (0.0-1.5); EOSINOPHILS ABSOLUTE AUTO 0.1 K/uL (0.0-0.7); EOSINOPHILS PERCENT AUTO 0.6 % (0.0-7.0); HEMATOCRIT 33.1 % (36.0-46.0); HEMOGLOBIN 10.8 g/dL (12.0-16.0); LYMPHOCYTES ABSOLUTE AUTO 3.4 K/uL (0.6-2.4); LYMPHOCYTES PERCENT AUTO 30.5 % (16.0-40.0); MEAN CORPUSCULAR HEMOGLOBIN 27.2 pg (27.0-32.0); MEAN CORPUSCULAR HGB CONC 32.6 g/dL (31.0-37.0); MEAN CORPUSCULAR VOLUME 83.4 fL (80.0-98.0); MONOCYTES ABSOLUTE AUTO 0.7 K/uL (0.0-0.8); MONOCYTES PERCENT AUTO 6.4 % (0.0-15.0); NEUTROPHILS ABSOLUTE AUTO 6.9 K/uL (1.4-5.7); NEUTROPHILS PERCENT AUTO 62.1 % (48.0-80.0); PLATELET COUNT,PLT 161 K/uL (150-400); RED BLOOD CELL COUNT 3.97 M/uL (4.30-5.90); WHITE BLOOD CELL COUNT,WBC 11.15 K/uL (4.0-11.0)
[2022-07-22 06:37] LABS: CALCIUM 7.9 mg/dL (8.5-10.1); CARBON DIOXIDE,CO2 25.4 mmol/L (21.0-32.0); CREATININE 0.6 mg/dL (0.6-1.0); EST CRCL DRUG DOSING (CG) 113.41 mL/min; MAGNESIUM 1.7 mg/dL (1.8-2.4); PHOSPHORUS 3.3 mg/dL (2.6-4.7)
[2022-07-22] MEDS ORDERED: Magnesium Sulfate/Water 2 GM in Premix Bag 1 BAG IV ONE (08:30)
[2022-07-22] MEDS: BUPRENORPHINE HCL PO SCH (08:36)
[2022-07-22] MEDS: NALOXONE HCL PO SCH (08:36)
[2022-07-22 10:06] VITALS: BP 131/74; PULSE 61
== END 2022-07-22 10:08 | disposition home or self-care (01) ==
LOC: MW.ED 06:19 → MW.MS 08:57
PROVIDERS: ADMIT Internal Medicine; ATTEND Internal Medicine
DX: R10.84 Generalized abdominal pain (principal); R11.2 Nausea with vomiting, unspecified; F41.9 Anxiety disorder, unspecified; F19.11 Other psychoactive substance abuse, in remission; F12.90 Cannabis use, unspecified, uncomplicated; F32.A Depression, unspecified; J45.909 Unspecified asthma, uncomplicated; K21.9 Gastro-esophageal reflux disease without esophagitis; F43.10 Post-traumatic stress disorder, unspecified; Z90.49 Acquired absence of other specified parts of digestive tract; F17.210 Nicotine dependence, cigarettes, uncomplicated; Z79.899 Other long term (current) drug therapy
CPT/HCPCS: 36415; 74177; 80048; 80053; 80305; 81003; 83605; 83690; 83735; 84100; 84484; 85025; 93005; 96361; 96374; 96375; 99285; C9113; J0131; J0780; J1885; J2405; J2550; J3010; J3475; J3490; J7030; J7120; Q9967; 93010; 96365; 96372; 96376; 99283; G0378

== ENCOUNTER 2022-08-26 23:51 | Emergency (ER) | payer MEDICAID ==
[2022-08-27] MEDS ORDERED: Sodium Chloride 0.9% 1,000 ML IV ONE ×2 (00:11→00:42)
[2022-08-27] MEDS ORDERED: Ondansetron 4 MG/2 ML SDV IVPUSH ONE (00:11)
[2022-08-27] MEDS ORDERED: Ketorolac 30 MG/ML SDV IVPUSH ONE (00:11)
[2022-08-27 00:43] LABS: BASOPHILS PERCENT AUTO 0.1 % (0.0-1.5); EOSINOPHILS PERCENT AUTO 0.1 % (0.0-7.0); HEMATOCRIT 40.3 % (36.0-46.0); HEMOGLOBIN 13.5 g/dL (12.0-16.0); LYMPHOCYTES ABSOLUTE AUTO 1.4 K/uL (0.6-2.4); LYMPHOCYTES PERCENT AUTO 9.4 % (16.0-40.0); MEAN CORPUSCULAR HEMOGLOBIN 28.8 pg (27.0-32.0); MEAN CORPUSCULAR HGB CONC 33.5 g/dL (31.0-37.0); MEAN CORPUSCULAR VOLUME 85.9 fL (80.0-98.0); MONOCYTES ABSOLUTE AUTO 0.7 K/uL (0.0-0.8); MONOCYTES PERCENT AUTO 4.8 % (0.0-15.0); NEUTROPHILS ABSOLUTE AUTO 12.4 K/uL (1.4-5.7); NEUTROPHILS PERCENT AUTO 85.6 % (48.0-80.0); NRBC ABSOLUTE 0 K/uL; PLATELET COUNT,PLT 204 K/uL (150-400); RED BLOOD CELL COUNT 4.69 M/uL (4.30-5.90); WHITE BLOOD CELL COUNT,WBC 14.51 K/uL (4.0-11.0)
[2022-08-27 01:02] LABS: ALANINE AMINOTRANSFERASE,ALT 59 IU/L (14-63); ALBUMIN 3.6 g/dL (3.4-5.0); ALKALINE PHOSPHATASE 70 U/L (46-116); ASPARTATE AMNIOTRANSFERASE,AST 24 IU/L (15-37); BILIRUBIN TOTAL 0.4 mg/dL (0.2-1.0); BLOOD UREA NITROGEN,BUN 7 mg/dL (7.0-18.0); CALCIUM 8.9 mg/dL (8.5-10.1); CARBON DIOXIDE,CO2 29.9 mmol/L (21.0-32.0); CHLORIDE,CL 98 mmol/L (98-107); CREATININE 0.6 mg/dL (0.6-1.0); EST CRCL DRUG DOSING (CG) 113.41 mL/min; GLUCOSE RANDOM 148 mg/dL (74-106); LIPASE 65 U/L (73-393); MAGNESIUM 1.9 mg/dL (1.8-2.4); PROTEIN TOTAL,TP 7.2 g/dL (6.4-8.2)
[2022-08-27 01:07] LABS: LACTIC ACID 0.9 mmol/L (0.4-2.0)
[2022-08-27 01:08] LABS: ESTIMATED GFR 124 mL/min (>60); ETHANOL BLOOD MEDICAL < 3.0 mg/dL
[2022-08-27] MEDS ORDERED: Iopamidol 755 MG/ML 500 ML Multipack Bottle IVPUSH ONE (01:17)
[2022-08-27 01:23] LABS: POTASSIUM,K 3.4 mmol/L (3.5-5.1); SODIUM,NA 140 mmol/L (136-145)
[2022-08-27 01:53] LABS: APPEARANCE,URINE SLT CLOUDY; BILIRUBIN,URINE NEGATIVE (NEGATIVE); COLOR,URINE YELLOW; GLUCOSE,URINE NEGATIVE (NEGATIVE); KETONES,URINE 15 mg/dL (NEGATIVE); LEUKOCYTE ESTERASE,URINE SMALL (NEGATIVE); NITRITE,URINE POSITIVE (NEGATIVE); OCCULT BLOOD,URINE SMALL (NEGATIVE); PROTEIN,URINE 30 mg/dL (NEGATIVE)
[2022-08-27 02:02] LABS: AMPHETAMINES SCREEN, URINE NEGATIVE (CUTOFF=500); BARBITURATE SCREEN,URINE NEGATIVE (CUTOFF=200); BENZODIAZEPINES SCREEN,URINE NEGATIVE (CUTOFF=150); BUPRENORPHINE SCREEN,URINE PRESUMPTIVE POSITIVE (CUTOFF=10); METHADONE SCREEN, URINE NEGATIVE (CUTOFF=200); METHAMPHETAMINES SCREEN, URINE NEGATIVE (CUTOFF=500); OXYCODONE SCREEN,URINE NEGATIVE (CUT0FF=100); PCP SCREEN,URINE NEGATIVE (CUTOFF=25); PROPOXYPHENE SCREEN,URINE NEGATIVE (CUTOFF=300); THC SCREEN,URINE 20 NG/ML PRESUMPTIVE POSITIVE (CUTOFF=50)
[2022-08-27 02:04] LABS: BACTERIA,URINE 3+ (NEGATIVE); EPITHELIAL CELLS,URINE FEW (NONE-FEW); RBC,URINE 0-2 (0-2/HPF); WBC,URINE 13-18 (0-5/HPF)
[2022-08-27] MEDS ORDERED: cefTRIAXone 1 GM in Sodium Chloride 0.9% 50 ML IV ONE (02:10)
[2022-08-27 03:10] VITALS: BP 125/70; PULSE 87
== END 2022-08-27 03:10 | disposition home or self-care (01) ==
LOC: MW.ED 23:51
DX: N39.0 Urinary tract infection, site not specified (principal); F41.9 Anxiety disorder, unspecified; F32.A Depression, unspecified; Z79.899 Other long term (current) drug therapy
CPT/HCPCS: 36415; 74177; 80053; 80305; 80307; 81001; 83605; 83690; 83735; 84703; 85025; 96361; 96365; 96375; 99284; J0696; J1885; J2405; J3490; J7030; Q9967; 99283

== ENCOUNTER 2022-08-28 05:03 | Observation (INO) | payer MEDICAID ==
[2022-08-28] MEDS ORDERED: Sodium Chloride 0.9% 1,000 ML IV ONE (05:14)
[2022-08-28] MEDS ORDERED: Ondansetron 4 MG/2 ML SDV IVPUSH ONE (05:14)
[2022-08-28] MEDS ORDERED: Morphine 4 MG/ML Syringe IVPUSH ONE ×2 (05:14→10:12)
[2022-08-28] MEDS ORDERED: Sodium Chloride 0.9% 2.5 ML Syringe FLUSH PRN (05:14)
[2022-08-28] MEDS ORDERED: Sodium Chloride 0.9% 10 ML Syringe FLUSH PRN (05:14)
[2022-08-28 05:21] LABS: BASOPHILS PERCENT AUTO 0.1 % (0.0-1.5); HEMOGLOBIN 12.8 g/dL (12.0-16.0); LYMPHOCYTES ABSOLUTE AUTO 1.3 K/uL (0.6-2.4); LYMPHOCYTES PERCENT AUTO 6.9 % (16.0-40.0); MEAN CORPUSCULAR HEMOGLOBIN 29.6 pg (27.0-32.0); MEAN CORPUSCULAR HGB CONC 34.6 g/dL (31.0-37.0); MEAN CORPUSCULAR VOLUME 85.5 fL (80.0-98.0); MONOCYTES ABSOLUTE AUTO 0.3 K/uL (0.0-0.8); MONOCYTES PERCENT AUTO 1.4 % (0.0-15.0); NEUTROPHILS ABSOLUTE AUTO 17.2 K/uL (1.4-5.7); NEUTROPHILS PERCENT AUTO 91.6 % (48.0-80.0); NRBC ABSOLUTE 0 K/uL; PLATELET COUNT,PLT 196 K/uL (150-400); RED BLOOD CELL COUNT 4.33 M/uL (4.30-5.90); WHITE BLOOD CELL COUNT,WBC 18.82 K/uL (4.0-11.0)
[2022-08-28] MEDS ORDERED: Cefepime 2 GM Vial IVPUSH ONE (05:40)
[2022-08-28 05:42] LABS: ALBUMIN 3.6 g/dL (3.4-5.0); BILIRUBIN TOTAL 0.5 mg/dL (0.2-1.0); CALCIUM 8.7 mg/dL (8.5-10.1); CARBON DIOXIDE,CO2 26.5 mmol/L (21.0-32.0); CREATININE 0.7 mg/dL (0.6-1.0); EST CRCL DRUG DOSING (CG) 97.21 mL/min; POTASSIUM,K 3.4 mmol/L (3.5-5.1); PROTEIN TOTAL,TP 7.1 g/dL (6.4-8.2)
[2022-08-28] MEDS ORDERED: Water For Injection, Sterile 10 ML SDV INJECT STA (05:55)
[2022-08-28 05:56] LABS: LACTIC ACID 1.4 mmol/L (0.4-2.0)
[2022-08-28] MEDS ORDERED: Water For Injection, Sterile 20 ML ONE (05:59)
[2022-08-28 06:15] LABS: APPEARANCE,URINE CLEAR; BILIRUBIN,URINE NEGATIVE (NEGATIVE); COLOR,URINE YELLOW; GLUCOSE,URINE NEGATIVE (NEGATIVE); KETONES,URINE NEGATIVE (NEGATIVE); LEUKOCYTE ESTERASE,URINE NEGATIVE (NEGATIVE); NITRITE,URINE NEGATIVE (NEGATIVE); OCCULT BLOOD,URINE NEGATIVE (NEGATIVE); PH,URINE 7.5 (5.0-8.0); PROTEIN,URINE NEGATIVE (NEGATIVE)
[2022-08-28] MEDS ORDERED: Ketorolac 30 MG/ML SDV IVPUSH ONE (06:33)
[2022-08-28] MEDS ORDERED: droPERidol 1.25 MG in Sodium Chloride 0.9% 50 ML IV ONE (06:33)
[2022-08-28] MEDS ORDERED: Famotidine 20 MG/2 ML SDV IVPUSH ONE (07:04)
[2022-08-28] MEDS ORDERED: Ondansetron 4 MG Tab.DIS PO PRN (08:48)
[2022-08-28] MEDS ORDERED: Potassium Chloride 20 MEQ Tab.ER PO ONE (08:48)
[2022-08-28] MEDS: DULoxetine 60 MG Cap PO SCH (09:36)
[2022-08-28] MEDS: NORGESTIMATE ETHINYL ESTRADIOL PO SCH (09:36)
[2022-08-28] MEDS: NALOXONE HCL PO SCH ×3 (09:36→21:10)
[2022-08-28] MEDS: BUPRENORPHINE HCL PO SCH ×3 (09:36→21:10)
[2022-08-28] MEDS: Ondansetron 4 MG/2 ML SDV IVPUSH PRN ×2 (10:18→17:33)
[2022-08-28] MEDS: cefTRIAXone 1 GM in Sodium Chloride 0.9% 50 ML IV SCH (10:47)
[2022-08-28] MEDS: Sodium Chloride 0.9% 1,000 ML IV SCH ×2 (12:45→21:04)
[2022-08-28] MEDS: Promethazine 25 MG/ML SDV IM PRN ×2 (13:32→19:04)
[2022-08-28] MEDS: Morphine 4 MG/ML Syringe IVPUSH PRN ×2 (13:35→18:36)
[2022-08-28] MEDS: Enoxaparin 40 MG/0.4 ML Syringe SUBCUT SCH (14:11)
[2022-08-28] MEDS: traZODone 50 MG Tab PO SCH (21:04)
[2022-08-29] MEDS: Ondansetron 4 MG/2 ML SDV IVPUSH PRN ×3 (02:52→22:10)
[2022-08-29] MEDS: Morphine 4 MG/ML Syringe IVPUSH PRN ×2 (02:58→07:35)
[2022-08-29] MEDS: Promethazine 25 MG/ML SDV IM PRN ×3 (03:45→23:08)
[2022-08-29] MEDS: Sodium Chloride 0.9% 1,000 ML IV SCH (05:42)
[2022-08-29 06:01] LABS: BASOPHILS PERCENT AUTO 0.3 % (0.0-1.5); EOSINOPHILS PERCENT AUTO 0.3 % (0.0-7.0); HEMATOCRIT 37.5 % (36.0-46.0); HEMOGLOBIN 12.2 g/dL (12.0-16.0); LYMPHOCYTES ABSOLUTE AUTO 1.5 K/uL (0.6-2.4); LYMPHOCYTES PERCENT AUTO 12.8 % (16.0-40.0); MEAN CORPUSCULAR HEMOGLOBIN 28.1 pg (27.0-32.0); MEAN CORPUSCULAR HGB CONC 32.5 g/dL (31.0-37.0); MEAN CORPUSCULAR VOLUME 86.4 fL (80.0-98.0); MONOCYTES ABSOLUTE AUTO 0.7 K/uL (0.0-0.8); MONOCYTES PERCENT AUTO 5.7 % (0.0-15.0); NEUTROPHILS ABSOLUTE AUTO 9.5 K/uL (1.4-5.7); NEUTROPHILS PERCENT AUTO 80.9 % (48.0-80.0); NRBC ABSOLUTE 0 K/uL; PLATELET COUNT,PLT 172 K/uL (150-400); RED BLOOD CELL COUNT 4.34 M/uL (4.30-5.90); WHITE BLOOD CELL COUNT,WBC 11.76 K/uL (4.0-11.0)
[2022-08-29 06:25] LABS: CALCIUM 8.4 mg/dL (8.5-10.1); CARBON DIOXIDE,CO2 22.8 mmol/L (21.0-32.0); CREATININE 0.6 mg/dL (0.6-1.0); EST CRCL DRUG DOSING (CG) 113.41 mL/min; POTASSIUM,K 3.1 mmol/L (3.5-5.1)
[2022-08-29] MEDS: Omeprazole 20 MG Cap.CR PO SCH (06:37)
[2022-08-29] MEDS ORDERED: Potassium Chloride 20 MEQ Tab.ER PO ONE (07:09)
[2022-08-29] MEDS: NS + KCl 20mEq/L 1,000 ML IV SCH ×2 (07:37→17:58)
[2022-08-29] MEDS ORDERED: Magnesium Sulfate/Water 2 GM in Premix Bag 1 BAG IV ONE (08:24)
[2022-08-29] MEDS: DULoxetine 60 MG Cap PO SCH (09:23)
[2022-08-29] MEDS: Tamsulosin 0.4 MG Cap.ER PO SCH ×2 (09:23→17:58)
[2022-08-29] MEDS: NORGESTIMATE ETHINYL ESTRADIOL PO SCH (09:24)
[2022-08-29] MEDS: BUPRENORPHINE HCL PO SCH ×2 (09:25→22:16)
[2022-08-29] MEDS: NALOXONE HCL PO SCH ×2 (09:25→22:16)
[2022-08-29] MEDS: cefTRIAXone 1 GM in Sodium Chloride 0.9% 50 ML IV SCH (10:53)
[2022-08-29] MEDS ORDERED: LORazepam 2 MG/ML SDV IVPUSH ONE (11:09)
[2022-08-29] MEDS: Enoxaparin 40 MG/0.4 ML Syringe SUBCUT SCH (13:53)
[2022-08-29] MEDS ORDERED: BUPRENORPHINE HCL PO SCH (14:00)
[2022-08-29] MEDS ORDERED: NALOXONE HCL PO SCH (14:00)
[2022-08-29] MEDS: HYDROmorphone 1 MG/ML Syringe IVPUSH PRN ×2 (14:23→22:10)
[2022-08-29] MEDS: traZODone 50 MG Tab PO SCH (21:43)
[2022-08-30] MEDS: Metoclopramide 10 MG/2 ML SDV IVPUSH PRN ×2 (00:54→07:01)
[2022-08-30] MEDS: NS + KCl 20mEq/L 1,000 ML IV SCH (03:02)
[2022-08-30] MEDS: HYDROmorphone 1 MG/ML Syringe IVPUSH PRN ×2 (03:03→07:01)
[2022-08-30 05:35] LABS: BASOPHILS PERCENT AUTO 0.2 % (0.0-1.5); EOSINOPHILS PERCENT AUTO 0.2 % (0.0-7.0); HEMATOCRIT 39.6 % (36.0-46.0); HEMOGLOBIN 12.6 g/dL (12.0-16.0); LYMPHOCYTES ABSOLUTE AUTO 1.9 K/uL (0.6-2.4); LYMPHOCYTES PERCENT AUTO 21.6 % (16.0-40.0); MEAN CORPUSCULAR HEMOGLOBIN 27.5 pg (27.0-32.0); MEAN CORPUSCULAR HGB CONC 31.8 g/dL (31.0-37.0); MEAN CORPUSCULAR VOLUME 86.5 fL (80.0-98.0); MONOCYTES ABSOLUTE AUTO 0.4 K/uL (0.0-0.8); MONOCYTES PERCENT AUTO 4.8 % (0.0-15.0); NEUTROPHILS ABSOLUTE AUTO 6.6 K/uL (1.4-5.7); NEUTROPHILS PERCENT AUTO 73.2 % (48.0-80.0); NRBC ABSOLUTE 0 K/uL; PLATELET COUNT,PLT 204 K/uL (150-400); RED BLOOD CELL COUNT 4.58 M/uL (4.30-5.90); WHITE BLOOD CELL COUNT,WBC 8.99 K/uL (4.0-11.0)
[2022-08-30] MEDS: Ondansetron 4 MG/2 ML SDV IVPUSH PRN ×2 (05:44→09:45)
[2022-08-30 05:54] LABS: CREATININE 0.6 mg/dL (0.6-1.0); EST CRCL DRUG DOSING (CG) 113.41 mL/min; MAGNESIUM 2.2 mg/dL (1.8-2.4); POTASSIUM,K 4.4 mmol/L (3.5-5.1)
[2022-08-30] MEDS: Omeprazole 20 MG Cap.CR PO SCH (06:30)
[2022-08-30] MEDS: DULoxetine 60 MG Cap PO SCH (08:23)
[2022-08-30] MEDS: Tamsulosin 0.4 MG Cap.ER PO SCH (08:23)
[2022-08-30] MEDS: BUPRENORPHINE HCL PO SCH (08:23)
[2022-08-30] MEDS: NORGESTIMATE ETHINYL ESTRADIOL PO SCH (08:23)
[2022-08-30] MEDS: NALOXONE HCL PO SCH (08:23)
[2022-08-30] MEDS: cefTRIAXone 1 GM in Sodium Chloride 0.9% 50 ML IV SCH (10:48)
[2022-08-30 11:09] VITALS: BP 145/63; PULSE 78
== END 2022-08-30 10:35 | disposition home or self-care (01) ==
LOC: MW.ED 05:03 → MW.MS 06:39
PROVIDERS: ADMIT Internal Medicine; ATTEND Internal Medicine
DX: N12 Tubulo-interstitial nephritis, not specified as acute or chronic (principal); F41.9 Anxiety disorder, unspecified; F32.A Depression, unspecified; F17.210 Nicotine dependence, cigarettes, uncomplicated; F12.90 Cannabis use, unspecified, uncomplicated; F11.93 Opioid use, unspecified with withdrawal; F20.0 Paranoid schizophrenia; Z90.49 Acquired absence of other specified parts of digestive tract; Z79.899 Other long term (current) drug therapy
CPT/HCPCS: 36415; 74176; 76700; 80048; 80053; 81003; 81025; 82947; 83605; 83690; 83735; 85025; 87040; 96361; 96365; 96366; 96367; 96368; 96372; 96375; 96376; 99285; A9270; G0378; J0692; J0696; J1170; J1650; J1885; J2060; J2270; J2405; J2550; J2765; J3475; J3480; J3490; J7030; 96374

== ENCOUNTER 2022-08-31 05:59 | Emergency (ER) | payer MEDICAID ==
[2022-08-31 06:12] VITALS: BP 142/93; PULSE 70
[2022-08-31 06:36] LABS: BASOPHILS PERCENT AUTO 0.2 % (0.0-1.5); EOSINOPHILS PERCENT AUTO 0.2 % (0.0-7.0); HEMATOCRIT 43.4 % (36.0-46.0); HEMOGLOBIN 14.5 g/dL (12.0-16.0); LYMPHOCYTES ABSOLUTE AUTO 1.8 K/uL (0.6-2.4); MEAN CORPUSCULAR HEMOGLOBIN 28.4 pg (27.0-32.0); MEAN CORPUSCULAR HGB CONC 33.4 g/dL (31.0-37.0); MEAN CORPUSCULAR VOLUME 84.9 fL (80.0-98.0); MONOCYTES ABSOLUTE AUTO 0.7 K/uL (0.0-0.8); MONOCYTES PERCENT AUTO 5.7 % (0.0-15.0); NEUTROPHILS ABSOLUTE AUTO 9.4 K/uL (1.4-5.7); NEUTROPHILS PERCENT AUTO 78.9 % (48.0-80.0); NRBC ABSOLUTE 0 K/uL; PLATELET COUNT,PLT 239 K/uL (150-400); RED BLOOD CELL COUNT 5.11 M/uL (4.30-5.90); WHITE BLOOD CELL COUNT,WBC 11.89 K/uL (4.0-11.0)
[2022-08-31 06:42] LABS: COLOR,URINE YELLOW; GLUCOSE,URINE NEGATIVE (NEGATIVE); KETONES,URINE 15 mg/dL (NEGATIVE); LEUKOCYTE ESTERASE,URINE TRACE (NEGATIVE); NITRITE,URINE POSITIVE (NEGATIVE); OCCULT BLOOD,URINE LARGE (NEGATIVE); PROTEIN,URINE 100 mg/dL (NEGATIVE); UROBILINOGEN,URINE >=8.0 EU/dL (<2.0)
[2022-08-31 06:51] LABS: APPEARANCE,URINE CLOUDY; BILIRUBIN,URINE MODERATE (NEGATIVE); RBC,URINE TOO NUMEROUS TO CT (0-2/HPF)
[2022-08-31 06:52] LABS: BACTERIA,URINE RARE (NEGATIVE); EPITHELIAL CELLS,URINE RARE (NONE-FEW); MUCUS,URINE FEW (NONE-MOD); WBC,URINE 0-2 (0-5/HPF)
[2022-08-31 06:58] LABS: A/G RATIO 0.7 (0.9-1.6); ALBUMIN 3.2 g/dL (3.4-5.0); BILIRUBIN TOTAL 0.7 mg/dL (0.2-1.0); CALCIUM 8.9 mg/dL (8.5-10.1); CARBON DIOXIDE,CO2 26.2 mmol/L (21.0-32.0); CREATININE 0.6 mg/dL (0.6-1.0); EST CRCL DRUG DOSING (CG) 113.41 mL/min; POTASSIUM,K 3.6 mmol/L (3.5-5.1); PROTEIN TOTAL,TP 7.6 g/dL (6.4-8.2)
== END 2022-08-31 07:51 | disposition home or self-care (01) ==
LOC: MW.ED 05:59
DX: R10.9 Unspecified abdominal pain (principal)
CPT/HCPCS: 36415; 80053; 81001; 85025; 87086; 99284

== ENCOUNTER 2022-10-10 21:45 | Emergency (ER) | payer MEDICAID ==
[2022-10-10] MEDS ORDERED: Ibuprofen 600 MG Tab PO ONE (22:13)
[2022-10-10 22:54] VITALS: BP 123/65; PULSE 64
== END 2022-10-10 22:53 | disposition home or self-care (01) ==
LOC: MW.ED 21:45
DX: H60.01 Abscess of right external ear (principal); H60.91 Unspecified otitis externa, right ear; H66.92 Otitis media, unspecified, left ear
CPT/HCPCS: 99282; A9270; 99283

== ENCOUNTER 2022-10-29 09:35 | Emergency (ER) | payer MEDICAID ==
[2022-10-29] MEDS ORDERED: Ondansetron 4 MG/2 ML SDV IVPUSH ONE (09:54)
[2022-10-29] MEDS ORDERED: Lactated Ringers 1,000 ML IV SCH ×2 (10:00→11:15)
[2022-10-29] MEDS ORDERED: Promethazine 25 MG/ML SDV IM STA (10:33)
[2022-10-29] MEDS ORDERED: Ketorolac 30 MG/ML SDV IVPUSH STA (10:53)
[2022-10-29 11:25] LABS: BASOPHILS PERCENT AUTO 0.1 % (0.0-1.5); HEMATOCRIT 44.6 % (36.0-46.0); HEMOGLOBIN 14.7 g/dL (12.0-16.0); LYMPHOCYTES ABSOLUTE AUTO 1.1 K/uL (0.6-2.4); LYMPHOCYTES PERCENT AUTO 9.3 % (16.0-40.0); MEAN CORPUSCULAR HEMOGLOBIN 28.8 pg (27.0-32.0); MEAN CORPUSCULAR VOLUME 87.5 fL (80.0-98.0); MONOCYTES ABSOLUTE AUTO 0.2 K/uL (0.0-0.8); MONOCYTES PERCENT AUTO 2.1 % (0.0-15.0); NEUTROPHILS ABSOLUTE AUTO 10.4 K/uL (1.4-5.7); NEUTROPHILS PERCENT AUTO 88.5 % (48.0-80.0); NRBC ABSOLUTE 0 K/uL; PLATELET COUNT,PLT 196 K/uL (150-400); WHITE BLOOD CELL COUNT,WBC 11.69 K/uL (4.0-11.0)
[2022-10-29 11:45] LABS: ALANINE AMINOTRANSFERASE,ALT 25 IU/L (14-63); ALBUMIN 3.8 g/dL (3.4-5.0); ALKALINE PHOSPHATASE 60 U/L (46-116); ASPARTATE AMNIOTRANSFERASE,AST 26 IU/L (15-37); BILIRUBIN TOTAL 1.3 mg/dL (0.2-1.0); BLOOD UREA NITROGEN,BUN 9 mg/dL (7.0-18.0); CALCIUM 9.7 mg/dL (8.5-10.1); CARBON DIOXIDE,CO2 23.9 mmol/L (21.0-32.0); CHLORIDE,CL 104 mmol/L (98-107); CREATININE 0.7 mg/dL (0.6-1.0); EST CRCL DRUG DOSING (CG) 92.94 mL/min; GLUCOSE RANDOM 153 mg/dL (74-106); LIPASE 51 U/L (16-77); POTASSIUM,K 4.8 mmol/L (3.5-5.1); PROTEIN TOTAL,TP 7.7 g/dL (6.4-8.2); SODIUM,NA 140 mmol/L (136-145)
[2022-10-29 11:46] LABS: ESTIMATED GFR 119 mL/min (>60); HCG QUANTITATIVE < 1.0 mIU/mL
[2022-10-29] MEDS ORDERED: droPERidol 5 MG/2 ML SDV IVPUSH STA (12:20)
[2022-10-29 12:49] VITALS: BP 120/70; PULSE 60
[2022-10-29 14:00] LABS: APPEARANCE,URINE CLOUDY; COLOR,URINE YELLOW; GLUCOSE,URINE NEGATIVE (NEGATIVE); KETONES,URINE >=80 mg/dL (NEGATIVE); LEUKOCYTE ESTERASE,URINE NEGATIVE (NEGATIVE); NITRITE,URINE NEGATIVE (NEGATIVE); OCCULT BLOOD,URINE NEGATIVE (NEGATIVE); PROTEIN,URINE 30 mg/dL (NEGATIVE)
[2022-10-29 14:02] LABS: BILIRUBIN,URINE SMALL (NEGATIVE)
[2022-10-29 14:08] LABS: AMORPHOUS SEDIMENT,URINE MANY (NEGATIVE); BACTERIA,URINE FEW (NEGATIVE); EPITHELIAL CELLS,URINE FEW (NONE-FEW); MUCUS,URINE MODERATE (NONE-MOD); RBC,URINE 0-2 (0-2/HPF); SQUAMOUS EPITHELIAL CELLS,UR FEW; WBC,URINE NONE SEEN (0-5/HPF)
[2022-10-29 14:10] LABS: AMPHETAMINES SCREEN, URINE NEGATIVE (CUTOFF=500); BARBITURATE SCREEN,URINE NEGATIVE (CUTOFF=200); BENZODIAZEPINES SCREEN,URINE NEGATIVE (CUTOFF=150); BUPRENORPHINE SCREEN,URINE PRESUMPTIVE POSITIVE (CUTOFF=10); METHADONE SCREEN, URINE NEGATIVE (CUTOFF=200); METHAMPHETAMINES SCREEN, URINE NEGATIVE (CUTOFF=500); OXYCODONE SCREEN,URINE NEGATIVE (CUT0FF=100); PCP SCREEN,URINE NEGATIVE (CUTOFF=25); PROPOXYPHENE SCREEN,URINE NEGATIVE (CUTOFF=300); THC SCREEN,URINE 20 NG/ML PRESUMPTIVE POSITIVE (CUTOFF=50)
== END 2022-10-29 14:42 | disposition home or self-care (01) ==
LOC: MW.ED 09:35
DX: R10.84 Generalized abdominal pain (principal); R11.2 Nausea with vomiting, unspecified; F11.23 Opioid dependence with withdrawal; F14.90 Cocaine use, unspecified, uncomplicated; F12.10 Cannabis abuse, uncomplicated; Z90.49 Acquired absence of other specified parts of digestive tract; Z20.822 Contact with and (suspected) exposure to COVID-19
CPT/HCPCS: 36415; 80053; 80305; 80307; 81001; 83690; 84702; 85025; 87635; 96361; 96372; 96374; 96375; 99284; J1790; J1885; J2405; J2550; J3360; J7120; U0002

== ENCOUNTER 2023-03-05 09:59 | Emergency (ER) | payer SELFPAY ==
[2023-03-05 12:55] LABS: CORONAVIRUS COVID-19 NAA NEGATIVE (NEGATIVE); INFLUENZA A NAA NEGATIVE (NEGATIVE); INFLUENZA B NAA NEGATIVE (NEGATIVE); RESPIRATORY SYNCYTIAL VIR NAA NEGATIVE (NEGATIVE)
== END 2023-03-05 10:45 | disposition left against medical advice (07) ==
LOC: MW.ED 09:59
DX: Z53.21 Procedure and treatment not carried out due to patient leaving prior to being seen by health care provider (principal)
CPT/HCPCS: 0241U

== ENCOUNTER 2023-03-05 11:00 | Emergency (ER) | payer SELFPAY ==
[2023-03-05 13:35] VITALS: BP 109/74; PULSE 92
== END 2023-03-05 13:24 | disposition home or self-care (01) ==
LOC: MW.ED 11:00
DX: A08.4 Viral intestinal infection, unspecified (principal); Z90.49 Acquired absence of other specified parts of digestive tract
CPT/HCPCS: 99283

== ENCOUNTER 2023-03-10 17:49 | Emergency (ER) | payer SELFPAY ==
[2023-03-10] MEDS ORDERED: Ibuprofen 600 MG Tab PO ONE (18:58)
[2023-03-10 20:37] VITALS: BP 102/60; PULSE 71
== END 2023-03-10 20:37 | disposition home or self-care (01) ==
LOC: MW.ED 17:49
DX: S80.212A Abrasion, left knee, initial encounter (principal); V18.0XXA Pedal cycle driver injured in noncollision transport accident in nontraffic accident, initial encounter
CPT/HCPCS: 73502; 73562; 73600; 81025; 99283; A9270

== ENCOUNTER 2023-05-13 06:24 | Emergency (ER) | payer SELFPAY ==
[2023-05-13] MEDS: fentaNYL 50 MCG/ML SDV IV ONE (06:39)
[2023-05-13] MEDS: Ondansetron 4 MG/2 ML SDV IVPUSH ONE (06:39)
[2023-05-13] MEDS: Sodium Chloride 0.9% 2.5 ML Syringe FLUSH PRN (06:39)
[2023-05-13] MEDS: Haloperidol Lactate 5 MG/ML SDV IM ONE (06:39)
[2023-05-13] MEDS: Sodium Chloride 0.9% 10 ML Syringe FLUSH PRN (06:39)
[2023-05-13] MEDS: Sodium Chloride 0.9% 1,000 ML IV ONE (06:40)
[2023-05-13] MEDS: Famotidine 20 MG/2 ML SDV IVPUSH ONE (06:42)
[2023-05-13 06:59] LABS: BASOPHILS ABSOLUTE AUTO 0.03 K/uL (0.00-0.20); BASOPHILS PERCENT AUTO 0.3 % (0.0-1.0); EOSINOPHILS ABSOLUTE AUTO 0.07 K/uL (0.00-0.45); EOSINOPHILS PERCENT AUTO 0.6 % (0.0-6.0); HEMATOCRIT 46.8 % (37.0-47.0); HEMOGLOBIN 15.8 g/dL (12.0-16.0); IMMATURE GRAN ABSOLUTE AUTO 0.03 K/uL (0.00-0.05); IMMATURE GRAN PERCENT AUTO 0.3 % (0.0-0.4); LYMPHOCYTES ABSOLUTE AUTO 2.49 K/uL (1.00-4.80); MEAN CORPUSCULAR HEMOGLOBIN 30.2 pg (28.0-32.0); MEAN CORPUSCULAR HGB CONC 33.8 g/dL (32.0-36.0); MEAN CORPUSCULAR VOLUME 89.5 fL (83.0-99.0); MEAN PLATELET VOLUME 11.3 fL (9.4-12.3); MONOCYTES ABSOLUTE AUTO 0.49 K/uL (0.00-0.80); MONOCYTES PERCENT AUTO 4.5 % (0.0-8.0); NEUTROPHILS ABSOLUTE AUTO 7.73 K/uL (1.80-7.70); NEUTROPHILS PERCENT AUTO 71.3 % (41.0-71.0); PLATELET COUNT,PLT 240 K/uL (150-400); RED BLOOD CELL COUNT 5.23 M/uL (4.10-5.30); WHITE BLOOD CELL COUNT,WBC 10.84 K/uL (3.9-11.3)
[2023-05-13 07:00] LABS: APPEARANCE,URINE SLT CLOUDY; BILIRUBIN,URINE NEGATIVE (NEGATIVE); COLOR,URINE YELLOW; GLUCOSE,URINE NEGATIVE (NEGATIVE); KETONES,URINE 15 mg/dL (NEGATIVE); LEUKOCYTE ESTERASE,URINE NEGATIVE (NEGATIVE); NITRITE,URINE NEGATIVE (NEGATIVE); OCCULT BLOOD,URINE NEGATIVE (NEGATIVE); PH,URINE 6.5 (5.0-8.0); PROTEIN,URINE NEGATIVE (NEGATIVE)
[2023-05-13 07:09] LABS: AMPHETAMINES SCREEN, URINE NEGATIVE (CUTOFF=500); BARBITURATE SCREEN,URINE NEGATIVE (CUTOFF=200); BENZODIAZEPINES SCREEN,URINE NEGATIVE (CUTOFF=150); BUPRENORPHINE SCREEN,URINE NEGATIVE (CUTOFF=10); METHADONE SCREEN, URINE NEGATIVE (CUTOFF=200); METHAMPHETAMINES SCREEN, URINE NEGATIVE (CUTOFF=500); OXYCODONE SCREEN,URINE NEGATIVE (CUT0FF=100); PCP SCREEN,URINE NEGATIVE (CUTOFF=25); THC SCREEN,URINE 20 NG/ML PRESUMPTIVE POSITIVE (CUTOFF=50)
[2023-05-13 07:23] LABS: A/G RATIO 1.1 (0.9-1.6); ALANINE AMINOTRANSFERASE,ALT 259 IU/L (14-63); ALKALINE PHOSPHATASE 113 U/L (46-116); ASPARTATE AMNIOTRANSFERASE,AST 259 IU/L (15-37); BILIRUBIN TOTAL 1.4 mg/dL (0.2-1.0); BLOOD UREA NITROGEN,BUN 8 mg/dL (7.0-18.0); CALCIUM 9.2 mg/dL (8.5-10.1); CARBON DIOXIDE,CO2 24.8 mmol/L (21.0-32.0); CHLORIDE,CL 102 mmol/L (98-107); CREATININE 0.7 mg/dL (0.6-1.0); EST CRCL DRUG DOSING (CG) 96.33 mL/min; ETHANOL BLOOD MEDICAL <3 mg/dL; GLUCOSE RANDOM 161 mg/dL (74-106); LIPASE 26 U/L (16-77); POTASSIUM,K 4.2 mmol/L (3.5-5.1); PROTEIN TOTAL,TP 7.5 g/dL (6.4-8.2); SODIUM,NA 140 mmol/L (136-145)
[2023-05-13 07:28] LABS: ESTIMATED GFR 119 mL/min (>60)
[2023-05-13] MEDS: Iopamidol 755 Mg/ML 100 ML Bottle IVPUSH ONE (08:16)
[2023-05-13 08:58] VITALS: BP 128/72; PULSE 68
== END 2023-05-13 08:57 | disposition home or self-care (01) ==
LOC: MW.ED 06:24
DX: K56.41 Fecal impaction (principal); R11.2 Nausea with vomiting, unspecified; Z79.899 Other long term (current) drug therapy
CPT/HCPCS: 36415; 74177; 80053; 80305; 80307; 81003; 83690; 84484; 84703; 85025; 96361; 96372; 96374; 96375; 99285; J1630; J2405; J3010; J3490; J7030; Q9967; 93010; 99284

== ENCOUNTER 2023-07-08 11:48 | Emergency (ER) | payer SELFPAY ==
[2023-07-08] MEDS: Sodium Chloride 0.9% 1,000 ML IV STA (12:39)
[2023-07-08] MEDS: Ondansetron 4 MG/2 ML SDV IVPUSH STA (12:39)
[2023-07-08] MEDS: Ketorolac 30 MG/ML SDV IVPUSH STA (12:39)
[2023-07-08] MEDS: Sodium Chloride 0.9% 2.5 ML Syringe FLUSH PRN (12:40)
[2023-07-08] MEDS: Sodium Chloride 0.9% 10 ML Syringe FLUSH PRN (12:40)
[2023-07-08 12:54] LABS: BASOPHILS ABSOLUTE AUTO 0.05 K/uL (0.00-0.20); BASOPHILS PERCENT AUTO 0.3 % (0.0-1.0); EOSINOPHILS ABSOLUTE AUTO 0.02 K/uL (0.00-0.45); EOSINOPHILS PERCENT AUTO 0.1 % (0.0-6.0); HEMATOCRIT 45.4 % (37.0-47.0); HEMOGLOBIN 15.5 g/dL (12.0-16.0); IMMATURE GRAN ABSOLUTE AUTO 0.07 K/uL (0.00-0.05); IMMATURE GRAN PERCENT AUTO 0.4 % (0.0-0.4); LYMPHOCYTES ABSOLUTE AUTO 2.58 K/uL (1.00-4.80); LYMPHOCYTES PERCENT AUTO 16.3 % (24.0-44.0); MEAN CORPUSCULAR HEMOGLOBIN 29.9 pg (28.0-32.0); MEAN CORPUSCULAR HGB CONC 34.1 g/dL (32.0-36.0); MEAN CORPUSCULAR VOLUME 87.6 fL (83.0-99.0); MEAN PLATELET VOLUME 11.6 fL (9.4-12.3); MONOCYTES ABSOLUTE AUTO 0.53 K/uL (0.00-0.80); MONOCYTES PERCENT AUTO 3.4 % (0.0-8.0); NEUTROPHILS ABSOLUTE AUTO 12.56 K/uL (1.80-7.70); NEUTROPHILS PERCENT AUTO 79.5 % (41.0-71.0); PLATELET COUNT,PLT 244 K/uL (150-400); RED BLOOD CELL COUNT 5.18 M/uL (4.10-5.30); WHITE BLOOD CELL COUNT,WBC 15.81 K/uL (3.9-11.3)
[2023-07-08 13:13] LABS: APPEARANCE,URINE CLOUDY; BILIRUBIN,URINE NEGATIVE (NEGATIVE); COLOR,URINE YELLOW; GLUCOSE,URINE NEGATIVE (NEGATIVE); KETONES,URINE NEGATIVE (NEGATIVE); LEUKOCYTE ESTERASE,URINE NEGATIVE (NEGATIVE); NITRITE,URINE NEGATIVE (NEGATIVE); OCCULT BLOOD,URINE NEGATIVE (NEGATIVE); PH,URINE 6.5 (5.0-8.0); PROTEIN,URINE NEGATIVE (NEGATIVE); UROBILINOGEN,URINE 0.2 EU/dL (<2.0)
[2023-07-08 13:21] LABS: A/G RATIO 1.2 (0.9-1.6); ALBUMIN 3.8 g/dL (3.4-5.0); BILIRUBIN TOTAL 1.1 mg/dL (0.2-1.0); CALCIUM 9.1 mg/dL (8.5-10.1); CARBON DIOXIDE,CO2 25.9 mmol/L (21.0-32.0); CREATININE 0.8 mg/dL (0.6-1.0); EST CRCL DRUG DOSING (CG) 84.29 mL/min; POTASSIUM,K 4.1 mmol/L (3.5-5.1); PROTEIN TOTAL,TP 7.1 g/dL (6.4-8.2)
[2023-07-08] MEDS: Ketamine 500 mg/10 ML MDV IV STA ×2 (13:42→15:09)
[2023-07-08 14:05] LABS: CANDIDA DNA PROBE NEGATIVE (NEGATIVE); GARDNERELLA DNA PROBE POSITIVE (NEGATIVE); TRICHOMONAS DNA PROBE NEGATIVE (NEGATIVE)
[2023-07-08 14:47] LABS: C. TRACHOMATIS BY PCR DETECTED; N. GONORRHOEAE BY PCR NOT DETECTED
[2023-07-08] MEDS: Doxycycline 100 MG Cap PO STA (15:10)
[2023-07-08] MEDS: metroNIDAZOLE 250 MG Tab PO STA (15:10)
[2023-07-08] MEDS: cefTRIAXone 1 GM in Sodium Chloride 0.9% 50 ML IV STA (15:12)
[2023-07-08 17:56] VITALS: BP 127/73; PULSE 64
== END 2023-07-08 17:35 | disposition home or self-care (01) ==
LOC: MW.ED 11:48
DX: A56.11 Chlamydial female pelvic inflammatory disease (principal); N76.0 Acute vaginitis; R87.613 High grade squamous intraepithelial lesion on cytologic smear of cervix (HGSIL); R87.810 Cervical high risk human papillomavirus (HPV) DNA test positive; Z32.02 Encounter for pregnancy test, result negative; Z75.8 Other problems related to medical facilities and other health care; Z90.49 Acquired absence of other specified parts of digestive tract
CPT/HCPCS: 76830; 80053; 81003; 83690; 84703; 85025; 87480; 87491; 87510; 87591; 87660; 96361; 96365; 96375; 96376; 99284; A9270; J0696; J1885; J2405; J3490; J7030

== ENCOUNTER 2023-07-19 14:52 | Emergency (ER) | payer SELFPAY ==
[2023-07-19] MEDS: Acetaminophen/HYDROcodone 325-10 MG Tab PO ONE (17:23)
[2023-07-19] MEDS: Ondansetron 4 MG Tab.DIS PO ONE (17:24)
[2023-07-19] MEDS: Sodium Chloride 0.9% 1,000 ML IV ONE (18:00)
[2023-07-19] MEDS: Ketorolac 30 MG/ML SDV IVPUSH ONE (18:00)
[2023-07-19] MEDS: Ondansetron 4 MG/2 ML SDV IVPUSH ONE (18:00)
[2023-07-19 18:35] LABS: BASOPHILS ABSOLUTE AUTO 0.01 K/uL (0.00-0.20); BASOPHILS PERCENT AUTO 0.1 % (0.0-1.0); HEMATOCRIT 43.5 % (37.0-47.0); HEMOGLOBIN 14.8 g/dL (12.0-16.0); IMMATURE GRAN ABSOLUTE AUTO 0.07 K/uL (0.00-0.05); IMMATURE GRAN PERCENT AUTO 0.4 % (0.0-0.4); LYMPHOCYTES ABSOLUTE AUTO 1.95 K/uL (1.00-4.80); LYMPHOCYTES PERCENT AUTO 11.9 % (24.0-44.0); MEAN CORPUSCULAR HEMOGLOBIN 30.3 pg (28.0-32.0); MEAN PLATELET VOLUME 11.2 fL (9.4-12.3); MONOCYTES ABSOLUTE AUTO 0.41 K/uL (0.00-0.80); MONOCYTES PERCENT AUTO 2.5 % (0.0-8.0); NEUTROPHILS ABSOLUTE AUTO 13.97 K/uL (1.80-7.70); NEUTROPHILS PERCENT AUTO 85.1 % (41.0-71.0); PLATELET COUNT,PLT 241 K/uL (150-400); RED BLOOD CELL COUNT 4.89 M/uL (4.10-5.30); WHITE BLOOD CELL COUNT,WBC 16.41 K/uL (3.9-11.3)
[2023-07-19 19:01] LABS: A/G RATIO 0.9 (0.9-1.6); ALBUMIN 3.5 g/dL (3.4-5.0); BILIRUBIN TOTAL 0.6 mg/dL (0.2-1.0); CARBON DIOXIDE,CO2 25.9 mmol/L (21.0-32.0); CREATININE 0.6 mg/dL (0.6-1.0); EST CRCL DRUG DOSING (CG) 112.38 mL/min; POTASSIUM,K 3.7 mmol/L (3.5-5.1); PROTEIN TOTAL,TP 7.3 g/dL (6.4-8.2)
[2023-07-19 20:06] LABS: APPEARANCE,URINE CLEAR; BILIRUBIN,URINE NEGATIVE (NEGATIVE); COLOR,URINE YELLOW; GLUCOSE,URINE NEGATIVE (NEGATIVE); KETONES,URINE NEGATIVE (NEGATIVE); LEUKOCYTE ESTERASE,URINE NEGATIVE (NEGATIVE); NITRITE,URINE NEGATIVE (NEGATIVE); OCCULT BLOOD,URINE TRACE-LYSED (NEGATIVE); PROTEIN,URINE NEGATIVE (NEGATIVE); UROBILINOGEN,URINE 0.2 EU/dL (<2.0)
[2023-07-19 20:29] LABS: BACTERIA,URINE FEW (NEGATIVE); EPITHELIAL CELLS,URINE OCCASIONAL (NONE-FEW); RBC,URINE 0-2 (0-2/HPF); WBC,URINE 0-1 (0-5/HPF)
[2023-07-19 21:08] VITALS: BP 129/79; PULSE 74
== END 2023-07-19 21:07 | disposition home or self-care (01) ==
LOC: MW.ED 14:52
DX: R10.84 Generalized abdominal pain (principal); F17.210 Nicotine dependence, cigarettes, uncomplicated; Z75.8 Other problems related to medical facilities and other health care
CPT/HCPCS: 36415; 74176; 80053; 81001; 83690; 85025; 99284; A9270

== ENCOUNTER 2023-08-23 13:29 | Emergency (ER) | payer MEDICAID ==
[2023-08-23] MEDS: Ketamine 500 mg/10 ML MDV IV STA ×2 (13:56→16:11)
[2023-08-23] MEDS: Ondansetron 4 MG/2 ML SDV IVPUSH ONE (13:58)
[2023-08-23] MEDS: Sodium Chloride 0.9% 1,000 ML IV STA ×2 (13:58→15:08)
[2023-08-23 14:24] LABS: BASOPHILS ABSOLUTE AUTO 0.03 K/uL (0.00-0.20); BASOPHILS PERCENT AUTO 0.2 % (0.0-1.0); EOSINOPHILS ABSOLUTE AUTO 0.01 K/uL (0.00-0.45); EOSINOPHILS PERCENT AUTO 0.1 % (0.0-6.0); HEMATOCRIT 44.7 % (37.0-47.0); HEMOGLOBIN 15.1 g/dL (12.0-16.0); IMMATURE GRAN ABSOLUTE AUTO 0.08 K/uL (0.00-0.05); IMMATURE GRAN PERCENT AUTO 0.5 % (0.0-0.4); LYMPHOCYTES ABSOLUTE AUTO 0.99 K/uL (1.00-4.80); LYMPHOCYTES PERCENT AUTO 5.6 % (24.0-44.0); MEAN CORPUSCULAR HEMOGLOBIN 30.1 pg (28.0-32.0); MEAN CORPUSCULAR HGB CONC 33.8 g/dL (32.0-36.0); MEAN PLATELET VOLUME 11.3 fL (9.4-12.3); MONOCYTES ABSOLUTE AUTO 0.23 K/uL (0.00-0.80); MONOCYTES PERCENT AUTO 1.3 % (0.0-8.0); NEUTROPHILS ABSOLUTE AUTO 16.31 K/uL (1.80-7.70); NEUTROPHILS PERCENT AUTO 92.3 % (41.0-71.0); PLATELET COUNT,PLT 195 K/uL (150-400); RED BLOOD CELL COUNT 5.02 M/uL (4.10-5.30); WHITE BLOOD CELL COUNT,WBC 17.65 K/uL (3.9-11.3)
[2023-08-23] MEDS: Cetirizine 10 MG Tab PO STA (14:28)
[2023-08-23 14:33] LABS: INR 1.24 (0.86-1.11)
[2023-08-23 14:49] LABS: ALBUMIN 3.8 g/dL (3.4-5.0); BILIRUBIN TOTAL 0.9 mg/dL (0.2-1.0); CALCIUM 8.9 mg/dL (8.5-10.1); CARBON DIOXIDE,CO2 24.4 mmol/L (21.0-32.0); CREATININE 0.7 mg/dL (0.6-1.0); EST CRCL DRUG DOSING (CG) 96.33 mL/min; MAGNESIUM 1.5 mg/dL (1.8-2.4); POTASSIUM,K 3.4 mmol/L (3.5-5.1); PROTEIN TOTAL,TP 7.5 g/dL (6.4-8.2)
[2023-08-23] MEDS: Ondansetron 4 MG/2 ML SDV IVPUSH STA (15:07)
[2023-08-23] MEDS: Magnesium Sulfate/Water 2 GM in Premix Bag 1 BAG IV STA (15:08)
[2023-08-23] MEDS: Iopamidol 755 MG/ML 500 ML Multipack Bottle IVPUSH STA (15:21)
[2023-08-23] MEDS: Ketorolac 30 MG/ML SDV IVPUSH STA (15:31)
[2023-08-23] MEDS: diphenhydrAMINE 50 MG/ML SDV IVPUSH STA (15:31)
[2023-08-23] MEDS: Metoclopramide 10 MG/2 ML SDV IVPUSH STA (15:31)
[2023-08-23 17:03] VITALS: BP 130/59; PULSE 64
== END 2023-08-23 16:57 | disposition home or self-care (01) ==
LOC: MW.ED 13:29
DX: R10.31 Right lower quadrant pain (principal); R10.32 Left lower quadrant pain; R11.2 Nausea with vomiting, unspecified; Z75.8 Other problems related to medical facilities and other health care; Z87.891 Personal history of nicotine dependence
CPT/HCPCS: 36415; 74177; 80053; 83690; 83735; 84703; 85025; 85610; 96361; 96365; 96375; 96376; 99284; A9270; J1200; J1885; J2405; J2765; J3475; J3490; J7030; Q9967

== ENCOUNTER 2023-08-25 05:06 | Emergency (ER) | payer SELFPAY ==
[2023-08-25] MEDS: Haloperidol Lactate 5 MG/ML SDV IM ONE (05:26)
[2023-08-25] MEDS: Ondansetron 4 MG/2 ML SDV IVPUSH ONE (05:39)
[2023-08-25] MEDS: Ketorolac 30 MG/ML SDV IVPUSH ONE (05:43)
[2023-08-25] MEDS: Sodium Chloride 0.9% 1,000 ML IV ONE ×2 (05:44)
[2023-08-25] MEDS: Sodium Chloride 0.9% 2.5 ML Syringe FLUSH PRN (05:44)
[2023-08-25] MEDS: Sodium Chloride 0.9% 10 ML Syringe FLUSH PRN (05:44)
[2023-08-25] MEDS: diphenhydrAMINE 50 MG/ML SDV IVPUSH ONE (05:45)
[2023-08-25] MEDS: diphenhydrAMINE 50 MG/ML SDV IM ONE (05:45)
[2023-08-25 06:27] VITALS: BP 134/86; PULSE 83
== END 2023-08-25 06:48 | disposition left against medical advice (07) ==
LOC: MW.ED 05:06
DX: E86.0 Dehydration (principal); F12.90 Cannabis use, unspecified, uncomplicated; R10.84 Generalized abdominal pain; F17.210 Nicotine dependence, cigarettes, uncomplicated; Z53.29 Procedure and treatment not carried out because of patient's decision for other reasons; Z79.899 Other long term (current) drug therapy; Z90.49 Acquired absence of other specified parts of digestive tract; Z75.8 Other problems related to medical facilities and other health care
CPT/HCPCS: 96361; 96372; 96374; 96375; 99283; J1200; J1630; J1885; J2405; J3490; J7030; 99284